=== PATIENT | female | born 1950 | race Caucasian/White ===

== ENCOUNTER 2018-03-07 10:52 | Inpatient (IN) ==
[2018-03-07] MEDS ORDERED: Metoprolol Tartrate 25 MG Tablet PO ONE (12:00)
[2018-03-07] MEDS ORDERED: Chlorhexidine Gluconate 2% 1 Pack (2 Cloths) TOPICAL ONE (12:00)
[2018-03-07] MEDS ORDERED: Heparin - SQ 10,000 UNITS/ML Vial SQ SCH (12:00)
[2018-03-07] MEDS ORDERED: Sodium Chlor 0.9% Inj 500 ML IV.CONT ONE (12:00)
[2018-03-07] MEDS ORDERED: Ketamine Inj 50 MG/5 ML Syringe IV.PUSH ONE (12:15)
[2018-03-07] MEDS ORDERED: Albumin Human 5% Inj 250 ML IV.SIG ONE (12:16)
[2018-03-07] MEDS ORDERED: Famotidine PF Inj 20 MG/2 ML Vial ONE (12:17)
[2018-03-07] MEDS ORDERED: fentaNYL Citrate Inj 250 MCG/5 ML Ampul ONE (12:17)
[2018-03-07] MEDS ORDERED: fentaNYL Citrate Inj 100 MCG/2 ML Ampul ONE ×3 (12:17→18:49)
[2018-03-07] MEDS ORDERED: Labetalol HCl Inj 100 MG/20 ML Vial IV.CONT ONE (13:16)
[2018-03-07] MEDS ORDERED: Normosol-R pH 7.4 Inj 3,000 ML IV.CONT ONE (13:16)
[2018-03-07] MEDS ORDERED: Phenylephrine/NS 1000 MCG/10ML Syringe IV.PUSH ONE (13:16)
[2018-03-07] MEDS ORDERED: Lidocaine PF 1% Inj 5 ML Syringe OTHER ONE (13:16)
--- NOTE | 2018-03-07 14:02 | P.OP ---
- Preoperative Diagnosis (1) Abdominal wall mass of epigastric region (2) Pelvic mass - Postoperative Diagnosis (1) Abdominal wall mass of epigastric region (2) Pelvic mass Date of procedure: 03/07/18 Anesthesia: GETA Surgeon: Edward Mckeon DO Estimated blood loss (mL): 0 Pathology: none sent Operation and Findings: 67-year-old female with large abdominal mass. Request made for cystoscopy with bilateral ureteral catheter insertion. Patient was brought to the operating room placed in the dorsal lithotomy position, prepped and draped in sterile fashion, received preprocedure antibiotic general endotracheal tube anesthesia was administered. 22 Korean cystoscope was inserted the bladder and on saleh cystoscopy the large mass was lifting the bladder anteriorly causing displacement of both ureteral orifices. The left ureteral orifice was identified and a 5 Korean Guadalupe catheter was inserted in the left ureteral orifice without difficulty. This was again repeated on the right side without difficulty. The Guadalupe was inserted and then the catheters were attached to the Guadalupe. She tolerated the procedure well.
[2018-03-07] MEDS ORDERED: Morphine Inj 4 MG/ML Vial ONE (14:18)
[2018-03-07] MEDS ORDERED: Sugammadex Inj 200 MG/2 ML Vial IV.PUSH ONE (15:04)
[2018-03-07 15:57] LABS: ABG Base Excess 3.5 mmol/L (-2-2); ABG PCO2 33 mmHg (38-42); ABG PO2 261 mmHG (61-120)
[2018-03-07 16:23] LABS: Baso % (Auto) 0.3 % (0.0-2.0); Eos % (Auto) 0.2 % (0.0-4.0); Hematocrit 34.7 % (35.0-46.0); Hemoglobin 11.5 gm/dL (11.6-15.3); Lymph # (Auto) 0.5 th/mm3 (1.0-4.8); Lymph % (Auto) 6.3 % (9.0-44.0); Mean Corpuscular HGB Conc 33.1 % (32.0-36.0); Mean Corpuscular Hemoglobin 27.7 pg (27.0-34.0); Mean Corpuscular Volume 83.8 fL (80.0-100.0); Mean Platelet Volume 6.1 fL (7.0-11.0); Mono # (Auto) 0.2 th/mm3 (0.0-0.9); Neut % (Auto) 90.2 % (16.0-70.0); Platelet Count 298 th/mm3 (150-450); Red Blood Count 4.14 mil/mm3 (4.00-5.30); Red Cell Distribution Width 19.1 % (11.6-17.2); White Blood Count 7.8 th/mm3 (4.0-11.0)
[2018-03-07] MEDS ORDERED: *morphine SULFATE 4 MG/ML PERIprocedure ONLY ONE ×2 (20:06→20:33)
[2018-03-07] MEDS ORDERED: *morphine SULFATE 10 MG/ML PERIprocedure ONLY ONE (20:23)
[2018-03-07] MEDS ORDERED: *HYDROmorphone PF Inj 1 MG/ML Ampul PERIprocedural Use ONLY ONE ×2 (20:46→21:56)
[2018-03-07] MEDS ORDERED: Naloxone Inj 0.4 MG/ML Vial IV.PUSH PRN (21:31)
[2018-03-07] MEDS: Dextrose 5%/NaCl 0.9% Inj 1,000 ML IV.SIG SCH (21:35)
[2018-03-07] MEDS ORDERED: Sodium Chloride 0.9% 2 ML Flush PRN IV.FLUSH (21:52)
[2018-03-07 22:10] LABS: Baso % (Auto) 0.3 % (0.0-2.0); Eos % (Auto) 0.1 % (0.0-4.0); Hemoglobin 12.2 gm/dL (11.6-15.3); Lymph # (Auto) 0.8 th/mm3 (1.0-4.8); Lymph % (Auto) 5.9 % (9.0-44.0); Mean Corpuscular Hemoglobin 27.3 pg (27.0-34.0); Mean Corpuscular Volume 82.9 fL (80.0-100.0); Mono # (Auto) 0.9 th/mm3 (0.0-0.9); Mono % (Auto) 6.1 % (0.0-8.0); Neut # (Auto) 12.6 th/mm3 (1.8-7.7); Neut % (Auto) 87.6 % (16.0-70.0); Platelet Count 576 th/mm3 (150-450); Red Blood Count 4.46 mil/mm3 (4.00-5.30); Red Cell Distribution Width 18.9 % (11.6-17.2); White Blood Count 14.4 th/mm3 (4.0-11.0)
[2018-03-07] MEDS: Famotidine PF Inj 20 MG/2 ML Vial IV.PUSH SCH (22:14)
[2018-03-07] MEDS: Heparin - SQ 10,000 UNITS/ML Vial SQ SCH (22:14)
[2018-03-07] MEDS: Morphine Inj 30 MG/30 ML PCA.VIAL PCA PRN (22:15)
[2018-03-07 22:23] LABS: Potassium 3.3 meq/L (3.5-5.1)
[2018-03-08] MEDS ORDERED: Potassium Chlor 20 mEq Premix 20 MEQ/100 ML PIGGYBACK IV.SIG ONE (01:00)
[2018-03-08] MEDS: Dextrose 5%/NaCl 0.9% Inj 1,000 ML IV.SIG SCH ×4 (03:30→15:05)
[2018-03-08 05:16] LABS: Baso % (Auto) 0.1 % (0.0-2.0); Hematocrit 33.8 % (35.0-46.0); Lymph # (Auto) 0.9 th/mm3 (1.0-4.8); Mean Corpuscular HGB Conc 32.5 % (32.0-36.0); Mean Corpuscular Hemoglobin 27.2 pg (27.0-34.0); Mean Corpuscular Volume 83.7 fL (80.0-100.0); Mean Platelet Volume 5.9 fL (7.0-11.0); Mono # (Auto) 0.8 th/mm3 (0.0-0.9); Mono % (Auto) 4.6 % (0.0-8.0); Neut # (Auto) 15.4 th/mm3 (1.8-7.7); Neut % (Auto) 90.3 % (16.0-70.0); Platelet Count 348 th/mm3 (150-450); Red Blood Count 4.04 mil/mm3 (4.00-5.30); Red Cell Distribution Width 18.5 % (11.6-17.2); White Blood Count 17.1 th/mm3 (4.0-11.0)
[2018-03-08 06:08] LABS: Calcium 7.1 mg/dL (8.5-10.1); Carbon Dioxide 28.4 meq/L (21.0-32.0); Potassium 3.9 meq/L (3.5-5.1)
[2018-03-08 06:22] LABS: Total Protein 4.6 g/dL (6.4-8.2)
[2018-03-08] MEDS: Morphine Inj 30 MG/30 ML PCA.VIAL PCA PRN ×2 (10:14→23:32)
[2018-03-08] MEDS: Heparin - SQ 10,000 UNITS/ML Vial SQ SCH ×2 (10:54→21:20)
[2018-03-08] MEDS: Famotidine PF Inj 20 MG/2 ML Vial IV.PUSH SCH (10:54)
[2018-03-08] MEDS: Sodium Chloride 0.9% 2 ML Flush BID IV.FLUSH SCH ×2 (10:55→21:22)
--- NOTE | 2018-03-08 11:24 | P.PNWCN ---
Wound Care Nurse Consult Description: Consult for New Ostomy Teaching of RLQ per Dr Dalton Communicated with: Patient RN Recommendation: Empty pouch when 1/3-1/2 full of effluent Change ostomy wafer and pouch every 3-5 days and PRN for leaks Assess stoma for output and red/pink color. Notify physician of any changes in color or lack of output in 24 hours. Additional information: Patient seen on for ostomy assessment. No teaching was done today. Patient appeared to be overwhelmed during assessment stating that she just woke up and could race and sports book writer please turn down the TV. Bowel Diversion Stoma - Bowel Stoma Left Lower Abdomen Stoma Edema: Yes Stoma Appearance: Protruding (red, moist, functioning with brown liquid noted in pouch that was open upon assessment) Loop Supporting Cachorro: No Collection Device: Two-piece, Moldable Wafer Drainage Description: Liquid, Brown Mis-Stomal Surrounding Tissue Sensation Description: No Symptoms - Additional Information Additional Information: Will assess patient for teaching later today.
--- NOTE | 2018-03-08 14:24 | P.PN ---
Subjective Interval history: c/o pain c/w surgery, using tester electronic scale regularly, feels a bit anxious no n/v, no cp or sob Physical Exam Vital signs: Vital Signs 03/07/18 19:53 03/07/18 20:00 03/07/18 20:08 Temperature 97.8 F Pulse Rate 83 82 Respiratory Rate 20 18 20 Blood Pressure 151/68 H 157/72 H Pulse Oximetry 96 100 03/07/18 20:15 03/07/18 20:25 03/07/18 20:30 Temperature Pulse Rate 88 89 Respiratory Rate 25 H 20 25 H Blood Pressure 155/72 H 159/73 H Pulse Oximetry 100 99 03/07/18 20:45 03/07/18 21:00 03/07/18 21:15 Temperature Pulse Rate 89 80 87 Respiratory Rate 24 23 21 Blood Pressure 148/67 H 172/72 H 158/72 H Pulse Oximetry 96 100 100 03/07/18 21:30 03/07/18 21:45 03/07/18 22:00 Temperature Pulse Rate 81 82 80 Respiratory Rate 20 19 18 Blood Pressure 156/64 H 157/70 H 161/67 H Pulse Oximetry 100 100 100 03/07/18 22:30 03/07/18 22:45 03/07/18 23:00 Temperature Pulse Rate 89 86 Respiratory Rate 19 16 20 Blood Pressure 169/72 H 155/65 H Pulse Oximetry 89 L 100 03/07/18 23:30 03/08/18 00:00 03/08/18 00:30 Temperature 97.8 F Pulse Rate 89 87 90 Respiratory Rate 19 21 18 Blood Pressure 142/64 H 146/61 H 135/61 Pulse Oximetry 100 100 99 03/08/18 01:43 03/08/18 04:00 Temperature 97.1 F L 97.2 F L Pulse Rate 91 H 92 H Respiratory Rate 19 21 Blood Pressure 109/61 Pulse Oximetry 100 95 Intake & Output 03/07/18 03/08/18 03/08/18 18:59 06:59 18:59 Intake Total 200 / 200 4500 / 4500 1100 / 1100 Output Total 3285 / 3285 Balance 200 / 200 1215 / 1215 1100 / 1100 Weight 67.6 kg Intake: IV 200 / 200 1300 / 1300 1100 / 1100 D5W/Normal Saline Inj 1,000 ML 1000 / 1000 1000 / 1000 @ 125 mls/hr IV.SIG .Q8H [facility] Rx #:[id number] KCl 20 mEq Premix Inj 20 meq In 100 / 100 100 ml @ 50 mls/hr IV.SIG ONCE ONE Rx#:[id number] Ancef Inj 1,000 MG In NS Inj 100 / 100 100 / 100 100 / 100 100 ML @ 200 mls/hr IV.SIG Q8H [facility] Rx#:[id number] Flagyl 500 MG Inj 100 ML @ 100 100 / 100 100 / 100 mls/hr IV.SIG Q8H [facility] Rx#: [id number] Oral 0 / 0 Anesthesia Amount 3200 / 3200 Output: Stool 0 / 0 Estimated Blood Loss 700 / 700 Urine Amount (Catheter) 2125 / 2125 3-way Urethral 1875 / 1875 Indwelling Urethral Catheter 250 / 250 Stool Amount (Stoma) 0 / 0 Right Lower Abdomen 0 / 0 Gastric Drainage 200 / 200 Right Nare 200 / 200 Wound Drainage 260 / 260 # 1 Abdomen ALBERT Drain 230 / 230 # 2 Abdomen ALBERT Drain 30 / 30 Other: Weight On Admission 67.6 kg - Constitutional mild distress (due to discomfort, no cardiac or pulmonary compromise) - Routine HEENT Exam Eye: Present: EOMI, PERRL - Routine Abdominal Exam Present: wound (clean, focal s/s d/c), drain (sites clean) - Routine Neurological Exam Present: alert - Urinary Catheter Management 3-way Urethral Cath placed during this visit: yes Reason for continuing: Hourly intake/output Insertion date: 03/07/18 Insertion time: 13:57 Indwelling Urethral Catheter Cath placed during this visit: yes Reason for continuing: Other continuation reason Insertion date: 03/07/18 Results - Labs CBC & Chem 7: 03/08/18 04:50 03/08/18 04:50 Laboratory Results - last 24 hr 03/07/18 03/07/18 03/07/18 11:13 15:48 16:04 WBC 7.8 RBC 4.14 Hgb 11.5 L Hct 34.7 L MCV 83.8 MCH 27.7 MCHC 33.1 RDW 19.1 H Plt Count 298 MPV 6.1 L Neut % (Auto) 90.2 H Lymph % (Auto) 6.3 L [place] % (Auto) 3.0 Eos % (Auto) 0.2 Baso % (Auto) 0.3 Neut # (Auto) 7.0 Lymph # (Auto) 0.5 L [place] # (Auto) 0.2 Eos # (Auto) 0.0 Baso # (Auto) 0.0 WBC Differential . Differential Comment Auto diff final Puncture Site Drawn in or Patient Temperature 98.6 O2 Saturation 97 ABG pH 7.52 H* ABG pCO2 33 L ABG pO2 261 H ABG HCO3 26 ABG O2 Content 17.9 ABG Base Excess 3.5 H ABG Methemoglobin 1.5 Hemoglobin 12.7 Carboxyhemoglobin 1.2 Critical Value Yes Sodium Potassium Chloride Carbon Dioxide Anion Gap BUN Creatinine Estimated GFR Random Glucose Calcium Prot Corrected Calcium Total Protein Nasal Screen MRSA (PCR) MTS Gel Crossmatch See Detail Bld Prod Order Comment 03/07/18 03/07/18 03/08/18 21:30 21:30 01:00 WBC 14.4 H D RBC 4.46 Hgb 12.2 Hct 37.0 MCV 82.9 MCH 27.3 MCHC 33.0 RDW 18.9 H Plt Count 576 H D MPV 6.0 L Neut % (Auto) 87.6 H Lymph % (Auto) 5.9 L [place] % (Auto) 6.1 Eos % (Auto) 0.1 Baso % (Auto) 0.3 Neut # (Auto) 12.6 H Lymph # (Auto) 0.8 L [place] # (Auto) 0.9 Eos # (Auto) 0.0 Baso # (Auto) 0.0 WBC Differential . Differential Comment Auto diff final Puncture Site Patient Temperature O2 Saturation ABG pH ABG pCO2 ABG pO2 ABG HCO3 ABG O2 Content ABG Base Excess ABG Methemoglobin Hemoglobin Carboxyhemoglobin Critical Value Sodium 141 Potassium 3.3 L Chloride 103 Carbon Dioxide 26.0 Anion Gap 12 BUN 28 H Creatinine 1.72 H Estimated GFR 29 L Random Glucose 161 H Calcium 8.0 L Prot Corrected Calcium Total Protein Nasal Screen MRSA (PCR) Not detected MTS Gel Crossmatch Bld Prod Order Comment 03/08/18 03/08/18 04:50 04:50 WBC 17.1 H RBC 4.04 Hgb 11.0 L Hct 33.8 L MCV 83.7 MCH 27.2 MCHC 32.5 RDW 18.5 H Plt Count 348 D MPV 5.9 L Neut % (Auto) 90.3 H Lymph % (Auto) 5.0 L [place] % (Auto) 4.6 Eos % (Auto) 0.0 Baso % (Auto) 0.1 Neut # (Auto) 15.4 H Lymph # (Auto) 0.9 L [place] # (Auto) 0.8 Eos # (Auto) 0.0 Baso # (Auto) 0.0 WBC Differential . Differential Comment Auto diff final Puncture Site Patient Temperature O2 Saturation ABG pH ABG pCO2 ABG pO2 ABG HCO3 ABG O2 Content ABG Base Excess ABG Methemoglobin Hemoglobin Carboxyhemoglobin Critical Value Sodium 144 Potassium 3.9 Chloride 107 Carbon Dioxide 28.4 Anion Gap 9 BUN 29 H Creatinine 1.95 H Estimated GFR 25 L Random Glucose 189 H Calcium 7.1 L* D Prot Corrected Calcium 8.5 Total Protein 4.6 L Nasal Screen MRSA (PCR) MTS Gel Crossmatch Bld Prod Order Comment Assessment and Plan - Plan POD#1 Stable in early post op period Findings and steps taken discussed in brief, preliminary q&a family present, she/they understand cpm as outlined, oob with assist, spirometry, continue feliciano ostomy teaching has been initiated, anticipate need for short term rehab after d /c
--- NOTE | 2018-03-08 23:43 | P.PN ---
Subjective Interval history: POD#1 s/p ex lap, excision adominal wall tumor, excision pelvic mass, sigmod resection, transverse colon/sb resection. uncomfortable, inadequate pain relief minimal nausea Physical Exam Vital signs: Vital Signs 03/08/18 00:00 03/08/18 00:30 03/08/18 01:08 Temperature 97.8 F Pulse Rate 87 90 Respiratory Rate 21 18 Blood Pressure 146/61 H 135/61 127/60 Pulse Oximetry 100 99 03/08/18 01:43 03/08/18 02:00 03/08/18 03:00 Temperature 97.1 F L Pulse Rate 91 H 90 88 Respiratory Rate 19 14 16 Blood Pressure Pulse Oximetry 100 98 97 03/08/18 04:00 03/08/18 05:00 03/08/18 06:00 Temperature 97.2 F L Pulse Rate 90 84 87 Respiratory Rate 15 14 15 Blood Pressure 109/61 Pulse Oximetry 99 97 87 L 03/08/18 07:00 03/08/18 07:38 03/08/18 08:00 Temperature Pulse Rate 91 H 97 H 89 Respiratory Rate 17 24 15 Blood Pressure 146/65 H 122/60 Pulse Oximetry 92 L 80 L 89 L 03/08/18 09:00 03/08/18 10:00 03/08/18 11:00 Temperature Pulse Rate 89 90 96 H Respiratory Rate 18 20 22 Blood Pressure 127/61 132/62 136/60 Pulse Oximetry 100 100 100 03/08/18 12:00 03/08/18 13:00 03/08/18 14:00 Temperature Pulse Rate 92 H 97 H 92 H Respiratory Rate 20 27 H 16 Blood Pressure 130/61 126/66 134/61 Pulse Oximetry 97 100 100 03/08/18 14:02 03/08/18 15:00 03/08/18 16:00 Temperature Pulse Rate 92 H 91 H Respiratory Rate 13 12 Blood Pressure 129/59 L 130/64 133/61 Pulse Oximetry 100 100 Intake & Output 03/08/18 03/08/18 03/09/18 06:59 18:59 06:59 Intake Total 4500 / 4500 1300 / 1300 Output Total 3285 / 3285 940 / 940 Balance 1215 / 1215 360 / 360 Intake: IV 1300 / 1300 1300 / 1300 D5W/Normal Saline Inj 1,000 ML 1000 / 1000 1000 / 1000 @ 125 mls/hr IV.SIG .Q8H [facility] Rx #:[id number] KCl 20 mEq Premix Inj 20 meq In 100 / 100 100 ml @ 50 mls/hr IV.SIG ONCE ONE Rx#:[id number] Ancef Inj 1,000 MG In NS Inj 100 / 100 200 / 200 100 ML @ 200 mls/hr IV.SIG Q8H [facility] Rx#:[id number] Flagyl 500 MG Inj 100 ML @ 100 100 / 100 100 / 100 mls/hr IV.SIG Q8H [facility] Rx#: [id number] Oral 0 / 0 Anesthesia Amount 3200 / 3200 Output: Stool 0 / 0 Estimated Blood Loss 700 / 700 Urine Amount (Catheter) 2125 / 2125 450 / 450 3-way Urethral 1875 / 1875 Indwelling Urethral Catheter 250 / 250 450 / 450 Stool Amount (Stoma) 0 / 0 100 / 100 Right Lower Abdomen 0 / 0 100 / 100 Gastric Drainage 200 / 200 Right Nare 200 / 200 Wound Drainage 260 / 260 390 / 390 # 1 Abdomen ALBERT Drain 230 / 230 330 / 330 # 2 Abdomen ALBERT Drain 30 / 30 60 / 60 - Constitutional mild distress - Routine Respiratory Exam Comments: breathing symmetric and nonlabored - Routine Abdominal Exam Comments: Abdomen soft, nondistended, tender Stoma pink ALBERT serosanguinous wound clean - Urinary Catheter Management 3-way Urethral Cath placed during this visit: yes Reason for continuing: Hourly intake/output Insertion date: 03/07/18 Insertion time: 13:57 Indwelling Urethral Catheter Cath placed during this visit: yes Reason for continuing: Other continuation reason Insertion date: 03/07/18 Results - Labs CBC & Chem 7: 03/08/18 04:50 03/08/18 04:50 Laboratory Results - last 24 hr 03/07/18 03/07/18 03/08/18 11:13 15:48 01:00 WBC RBC Hgb Hct MCV MCH MCHC RDW Plt Count MPV Neut % (Auto) Lymph % (Auto) [place] % (Auto) Eos % (Auto) Baso % (Auto) Neut # (Auto) Lymph # (Auto) [place] # (Auto) Eos # (Auto) Baso # (Auto) WBC Differential Differential Comment Puncture Site Drawn in or Sodium Potassium Chloride Carbon Dioxide Anion Gap BUN Creatinine Estimated GFR Random Glucose Calcium Prot Corrected Calcium Total Protein Nasal Screen MRSA (PCR) Not detected MTS Gel Crossmatch See Detail Bld Prod Order Comment 03/08/18 03/08/18 04:50 04:50 WBC 17.1 H RBC 4.04 Hgb 11.0 L Hct 33.8 L MCV 83.7 MCH 27.2 MCHC 32.5 RDW 18.5 H Plt Count 348 D MPV 5.9 L Neut % (Auto) 90.3 H Lymph % (Auto) 5.0 L [place] % (Auto) 4.6 Eos % (Auto) 0.0 Baso % (Auto) 0.1 Neut # (Auto) 15.4 H Lymph # (Auto) 0.9 L [place] # (Auto) 0.8 Eos # (Auto) 0.0 Baso # (Auto) 0.0 WBC Differential . Differential Comment Auto diff final Puncture Site Sodium 144 Potassium 3.9 Chloride 107 Carbon Dioxide 28.4 Anion Gap 9 BUN 29 H Creatinine 1.95 H Estimated GFR 25 L Random Glucose 189 H Calcium 7.1 L* D Prot Corrected Calcium 8.5 Total Protein 4.6 L Nasal Screen MRSA (PCR) MTS Gel Crossmatch Bld Prod Order Comment Assessment and Plan - Assessment (1) Pelvic mass Code(s): R19.00 - Intra-abdominal and pelvic swelling, mass and lump, unspecified site Status: Acute (2) Abdominal wall mass of epigastric region Code(s): R19.06 - Epigastric swelling, mass or lump Status: Acute Plan: Add Fentanyl patch Decrease IVF [employer]
[2018-03-09] MEDS: Dextrose 5%/NaCl 0.9% Inj 1,000 ML IV.SIG SCH ×3 (00:32→14:56)
[2018-03-09 06:08] LABS: Hematocrit 27.3 % (35.0-46.0); Mean Corpuscular HGB Conc 33.1 % (32.0-36.0); Mean Corpuscular Hemoglobin 27.7 pg (27.0-34.0); Mean Corpuscular Volume 83.5 fL (80.0-100.0); Mean Platelet Volume 6.1 fL (7.0-11.0); Platelet Count 236 th/mm3 (150-450); Red Blood Count 3.27 mil/mm3 (4.00-5.30); Red Cell Distribution Width 18.9 % (11.6-17.2); White Blood Count 16.3 th/mm3 (4.0-11.0)
[2018-03-09 06:35] LABS: Calcium 6.9 mg/dL (8.5-10.1); Carbon Dioxide 27.3 meq/L (21.0-32.0); Potassium 3.6 meq/L (3.5-5.1)
--- NOTE | 2018-03-09 07:23 | P.PN ---
Subjective Interval history: POD #2 s/p X Lap excision abdominal wall tumor, excision pelvic mass, sigmoid resection, transverse colon/small bowel resection. Patient resting in bed RN reports she did well overnight no issues patient reports pain controlled with FLAT [employer]ING [employer] NG tube Physical Exam Vital signs: Vital Signs 03/08/18 07:38 03/08/18 08:00 03/08/18 09:00 Temperature Pulse Rate 97 H 89 89 Respiratory Rate 24 15 18 Blood Pressure 146/65 H 122/60 127/61 Pulse Oximetry 80 L 89 L 100 03/08/18 10:00 03/08/18 11:00 03/08/18 12:00 Temperature Pulse Rate 90 96 H 92 H Respiratory Rate 20 22 20 Blood Pressure 132/62 136/60 130/61 Pulse Oximetry 100 100 97 03/08/18 13:00 03/08/18 14:00 03/08/18 14:02 Temperature Pulse Rate 97 H 92 H Respiratory Rate 27 H 16 Blood Pressure 126/66 134/61 129/59 L Pulse Oximetry 100 100 03/08/18 15:00 03/08/18 16:00 03/08/18 20:00 Temperature 98.1 F Pulse Rate 92 H 91 H 100 H Respiratory Rate 13 12 18 Blood Pressure 130/64 133/61 129/60 Pulse Oximetry 100 100 100 03/09/18 00:00 03/09/18 04:00 Temperature 98.1 F 98.2 F Pulse Rate 98 H 94 H Respiratory Rate 14 10 L Blood Pressure 129/60 136/63 Pulse Oximetry 100 93 L Intake & Output 03/08/18 03/09/18 03/09/18 18:59 06:59 18:59 Intake Total 1300 / 1300 1000 / 1000 Output Total 940 / 940 Balance 360 / 360 1000 / 1000 Intake: IV 1300 / 1300 1000 / 1000 D5W/Normal Saline Inj 1,000 ML 1000 / 1000 1000 / 1000 @ 125 mls/hr IV.SIG .Q8H [facility] Rx #:[id number] Ancef Inj 1,000 MG In NS Inj 200 / 200 100 ML @ 200 mls/hr IV.SIG Q8H [facility] Rx#:[id number] Flagyl 500 MG Inj 100 ML @ 100 100 / 100 mls/hr IV.SIG Q8H [facility] Rx#: [id number] Output: Urine Amount (Catheter) 450 / 450 Indwelling Urethral Catheter 450 / 450 Stool Amount (Stoma) 100 / 100 Right Lower Abdomen 100 / 100 Wound Drainage 390 / 390 # 1 Abdomen ALBERT Drain 330 / 330 # 2 Abdomen ALBERT Drain 60 / 60 - Constitutional no acute distress - Routine HEENT Exam Head: Present: normocephalic, atraumatic Eye: Present: EOMI, PERRL - Routine Neck Exam Present: supple - Routine Respiratory Exam Present: CTA bilaterally - Routine Cardiovascular Exam Present: RRR - Routine Abdominal Exam Present: soft, ostomy Comments: ALBERT drain with SS drainage - Routine Extremities Exam Comments: teds and scds - Routine Skin Exam Present: intact - Routine Neurological Exam Present: alert, oriented X3 - Detailed Neurological Exam: Coma Scale Eye Opening: Spontaneous - Routine Psychiatric Exam Present: normal affect - Urinary Catheter Management 3-way Urethral Cath placed during this visit: yes Reason for continuing: Hourly intake/output Insertion date: 03/07/18 Insertion time: 13:57 Indwelling Urethral Catheter Cath placed during this visit: yes Reason for continuing: Other continuation reason Insertion date: 03/07/18 Results - Labs CBC & Chem 7: 03/09/18 05:50 03/09/18 05:50 Laboratory Results - last 24 hr 03/07/18 03/07/18 03/08/18 11:13 15:48 01:00 WBC RBC Hgb Hct MCV MCH MCHC RDW Plt Count MPV Puncture Site Drawn in or Sodium Potassium Chloride Carbon Dioxide Anion Gap BUN Creatinine Estimated GFR Random Glucose Calcium Nasal Screen MRSA (PCR) Not detected MTS Gel Crossmatch See Detail Bld Prod Order Comment 03/09/18 03/09/18 05:50 05:50 WBC 16.3 H RBC 3.27 L Hgb 9.0 L D Hct 27.3 L MCV 83.5 MCH 27.7 MCHC 33.1 RDW 18.9 H Plt Count 236 D MPV 6.1 L Puncture Site Sodium 147 H Potassium 3.6 Chloride 113 H Carbon Dioxide 27.3 Anion Gap 7 BUN 27 H Creatinine 1.38 H Estimated GFR 38 L Random Glucose 128 H Calcium 6.9 L* Nasal Screen MRSA (PCR) MTS Gel Crossmatch Bld Prod Order Comment Assessment and Plan - Assessment (1) Pelvic mass Code(s): R19.00 - Intra-abdominal and pelvic swelling, mass and lump, unspecified site Status: Acute Current visit: No - Plan POD #2 s/p ex lap, excision abdominal wall tumor, excision pelvic mass, sigmoid resection, transverse colon and small bowel resection. ileostomy draining teaching per wound care ALBERT drains SS drainage abdominal dressing is c/d/i NG tube IV hydration supportive care OOB to chair pain controlled with [employer]ING [employer]ER
[2018-03-09 07:38] LABS: Total Protein 4.5 g/dL (6.4-8.2)
[2018-03-09] MEDS: Famotidine PF Inj 20 MG/2 ML Vial IV.PUSH SCH ×2 (10:07→21:00)
[2018-03-09] MEDS: Sodium Chloride 0.9% 2 ML Flush BID IV.FLUSH SCH (10:07)
[2018-03-09] MEDS: Heparin - SQ 10,000 UNITS/ML Vial SQ SCH ×2 (10:07→21:00)
--- NOTE | 2018-03-09 10:31 | P.PN ---
Subjective Interval history: POD#2 s/p ex lap, excision abdominal wall tumor, pelvic tumor, sigmoid colon, transverse colon/sb fairly comfortable Physical Exam Vital signs: Vital Signs 03/08/18 11:00 03/08/18 12:00 03/08/18 13:00 Temperature Pulse Rate 96 H 92 H 97 H Respiratory Rate 22 20 27 H Blood Pressure 136/60 130/61 126/66 Pulse Oximetry 100 97 100 03/08/18 14:00 03/08/18 14:02 03/08/18 15:00 Temperature Pulse Rate 92 H 92 H Respiratory Rate 16 13 Blood Pressure 134/61 129/59 L 130/64 Pulse Oximetry 100 100 03/08/18 16:00 03/08/18 20:00 03/09/18 00:00 Temperature 98.1 F 98.1 F Pulse Rate 91 H 100 H 98 H Respiratory Rate 12 18 14 Blood Pressure 133/61 129/60 129/60 Pulse Oximetry 100 100 100 03/09/18 04:00 Temperature 98.2 F Pulse Rate 94 H Respiratory Rate 10 L Blood Pressure 136/63 Pulse Oximetry 93 L Intake & Output 03/08/18 03/09/18 03/09/18 18:59 06:59 18:59 Intake Total 1300 / 1300 1657 / 1657 1000 / 1000 Output Total 940 / 940 905 / 905 Balance 360 / 360 752 / 752 1000 / 1000 Weight 68.1 kg Intake: IV 1300 / 1300 1657 / 1657 1000 / 1000 D5W/Normal Saline Inj 1,000 ML 1000 / 1000 1657 / 1657 1000 / 1000 @ 125 mls/hr IV.SIG .Q8H [facility] Rx #:[id number] Ancef Inj 1,000 MG In NS Inj 200 / 200 100 ML @ 200 mls/hr IV.SIG Q8H [facility] Rx#:[id number] Flagyl 500 MG Inj 100 ML @ 100 100 / 100 mls/hr IV.SIG Q8H [facility] Rx#: [id number] Oral 0 / 0 Output: Urine Amount (Catheter) 450 / 450 675 / 675 Indwelling Urethral Catheter 450 / 450 675 / 675 Stool Amount (Stoma) 100 / 100 100 / 100 Right Lower Abdomen 100 / 100 100 / 100 Wound Drainage 390 / 390 130 / 130 # 1 Abdomen ALBERT Drain 330 / 330 90 / 90 # 2 Abdomen ALBERT Drain 60 / 60 40 / 40 - Routine Abdominal Exam Comments: Abdomen soft, nondistended, tender Wound clean stoma pink ALBERT serosanguinous - Urinary Catheter Management 3-way Urethral Cath placed during this visit: yes Reason for continuing: Hourly intake/output Insertion date: 03/07/18 Insertion time: 13:57 Indwelling Urethral Catheter Cath placed during this visit: yes Reason for continuing: Other continuation reason Insertion date: 03/07/18 Results - Labs CBC & Chem 7: 03/09/18 05:50 03/09/18 05:50 Laboratory Results - last 24 hr 03/07/18 03/08/18 03/09/18 11:13 01:00 05:50 WBC 16.3 H RBC 3.27 L Hgb 9.0 L D Hct 27.3 L MCV 83.5 MCH 27.7 MCHC 33.1 RDW 18.9 H Plt Count 236 D MPV 6.1 L Sodium Potassium Chloride Carbon Dioxide Anion Gap BUN Creatinine Estimated GFR Random Glucose Calcium Prot Corrected Calcium Total Protein Nasal Screen MRSA (PCR) Not detected MTS Gel Crossmatch See Detail Bld Prod Order Comment 03/09/18 05:50 WBC RBC Hgb Hct MCV MCH MCHC RDW Plt Count MPV Sodium 147 H Potassium 3.6 Chloride 113 H Carbon Dioxide 27.3 Anion Gap 7 BUN 27 H Creatinine 1.38 H Estimated GFR 38 L Random Glucose 128 H Calcium 6.9 L* Prot Corrected Calcium 8.3 L Total Protein 4.5 L Nasal Screen MRSA (PCR) MTS Gel Crossmatch Bld Prod Order Comment Assessment and Plan - Assessment (1) Pelvic mass Code(s): R19.00 - Intra-abdominal and pelvic swelling, mass and lump, unspecified site Status: Acute (2) Abdominal wall mass of epigastric region Code(s): R19.06 - Epigastric swelling, mass or lump Status: Acute Plan: d/c stent Decrease IVF, start lasix clamp NGT x 4 hours, d/c if less than 100 cc [employer]
--- NOTE | 2018-03-09 10:36 | P.DIET ---
Nutritional Evaluation Type of nutrition evaluation: initial Nutrition screening: Weight Loss > 10 lbs Subjective Subjective Comments: Weight loss and poor appetite reported. Objective - Diagnosis Pelvic Mass - Objective Body Mass Index: 25.0 % IBW: 115 (IBW = 130#) Body Weight Used for Calculations: Actual (68.1) Energy Needs - Lower Range (kCal/kg): 25 Energy Needs - Upper Range (kCal/kg): 30 Lower Limit kCal/kg (kCals): 1,703 Upper Limit kCal/kg (kCals): 2,043 Lower Limit Protein Factor (Grams per Kg): 1.0 Upper Limit Protein Factor (Grams per Kg): 1.5 Lower Protein Needs (Protein): 68 Upper Protein Needs (Protein): 102 Fluid Factor (ml/kg): 30 Estimated Fluid Needs (ml): 2,043 Dietitian Reviewed in Medical Record: Curent medications, Intake & Output, Labs , Medical history Diet Order: floor finisher diet order entered Assessment Assessment: Pt is s/p exp lap, hysterectomy, BSO, pelvic mass removal, lysis of adhesions, resection of abdominal wall, sigmoid resection, small bowel resection, transverse colon resection, ileostomy, and insertion of B ureteral catheters POD # 2 and remains npo with an ng-t. RD will monitor diet advance and assess for the need of supplements. Recommendations: Advance diet per surgery Dietitian to Monitor: Lab values, Intake & Output, Diet tolerance, Weight change , PO Intake, Diet advancement, Medical course
--- NOTE | 2018-03-09 13:54 | P.PNWCN ---
Wound Care Nurse Consult Description: Consult for New Ostomy Teaching of RLQ per Dr Dalton Communicated with: PREET Rome Recommendation: Empty pouch when 1/3-1/2 full of effluent. Change ostomy wafer and pouch every 3-5 days and PRN for leaks. Assess stoma for output and red/pink color. Notify physician of any changes in color or lack of output in 24 hours. Additional information: Patient seen on for consult on RLQ ileostomy. Patient was visiting with her son at bedside. Spoke with PREET Rome regarding teaching to be done today. Per RN, patient is still "out of it and confused at times". PREET Rome to [employer] technical proposal writer when son leaves for teaching and assessment of ileostomy. Bowel Diversion Stoma - Additional Information Additional Information: Will assess patient for teaching later today after son leaves.
--- NOTE | 2018-03-09 16:51 | P.PNWCN ---
Wound Care Nurse Consult Description: Consult for New Ostomy Teaching of RLQ per Dr Dalton Communicated with: Patients son at bedside PREET Rome Recommendation: Empty pouch when 1/3-1/2 full of effluent. Change ostomy wafer and pouch every 3-5 days and PRN for leaks. Assess stoma for output and red/pink color. Notify physician of any changes in color or lack of output in 24 hours. Additional information: Patient seen on . Spoke with son at bedside. Left educational materials in room for reinforcement of teaching. Plan to speak with patient on Tuesday. Patient was sleeping upon arrival to room 1321 and continued to sleep while speaking with her son. Spoke with PREET Rome regarding educational materials, repositioning patient, etc.
[2018-03-09] MEDS: Morphine Inj 30 MG/30 ML PCA.VIAL PCA PRN (18:25)
[2018-03-10] MEDS: Dextrose 5%/NaCl 0.9% Inj 1,000 ML IV.SIG SCH ×3 (01:03→21:40)
[2018-03-10] MEDS: Sodium Chloride 0.9% 2 ML Flush BID IV.FLUSH SCH ×3 (01:03→21:39)
[2018-03-10 05:35] LABS: Hematocrit 26.8 % (35.0-46.0); Hemoglobin 8.7 gm/dL (11.6-15.3); Mean Corpuscular HGB Conc 32.3 % (32.0-36.0); Mean Corpuscular Hemoglobin 27.3 pg (27.0-34.0); Mean Corpuscular Volume 84.5 fL (80.0-100.0); Mean Platelet Volume 6.2 fL (7.0-11.0); Platelet Count 201 th/mm3 (150-450); Red Blood Count 3.17 mil/mm3 (4.00-5.30); White Blood Count 14.7 th/mm3 (4.0-11.0)
[2018-03-10 06:03] LABS: Carbon Dioxide 30.8 meq/L (21.0-32.0); Potassium 3.2 meq/L (3.5-5.1)
[2018-03-10 06:18] LABS: Total Protein 4.6 g/dL (6.4-8.2)
--- NOTE | 2018-03-10 08:01 | P.PNONC ---
Subjective Interval history: POD #3 patient resting in bed no complaints NG tube discontinued patient denies any nausea or vomiting pain controlled Objective Vital Signs/Intake & Output: Vital Signs 03/09/18 08:00 03/09/18 12:00 03/09/18 16:00 Temperature 97.6 F 98.2 F 98.1 F Pulse Rate 97 H 99 H 100 H Respiratory Rate 14 12 12 Blood Pressure 160/77 H 116/57 L 145/67 H Pulse Oximetry 100 100 100 03/09/18 19:00 03/09/18 20:00 03/09/18 21:00 Temperature 98.4 F Pulse Rate 96 H 99 H 98 H Respiratory Rate 10 L 12 16 Blood Pressure 139/70 146/67 H 138/64 Pulse Oximetry 98 98 95 03/09/18 22:00 03/09/18 23:00 03/10/18 00:00 Temperature 98.6 F Pulse Rate 92 H 92 H 98 H Respiratory Rate 11 L 10 L 13 Blood Pressure 127/58 L 146/88 H 148/68 H Pulse Oximetry 96 99 100 03/10/18 01:00 03/10/18 02:00 03/10/18 03:00 Temperature Pulse Rate 87 84 84 Respiratory Rate 10 L 11 L 11 L Blood Pressure 137/64 144/65 H 137/62 Pulse Oximetry 100 100 94 L 03/10/18 04:00 Temperature 98.4 F Pulse Rate 88 Respiratory Rate 11 L Blood Pressure 151/68 H Pulse Oximetry 89 L Intake & Output 03/09/18 03/10/18 03/10/18 18:59 06:59 18:59 Intake Total 3000 / 3000 0 / 0 Output Total 875 / 875 1005 / 1005 Balance 2125 / 2125 -1005 / -1005 Weight 66.5 kg Intake: IV 3000 / 3000 0 / 0 D5W/Normal Saline Inj 1,000 ML 3000 / 3000 0 / 0 @ 100 mls/hr IV.SIG .Q10H [facility] Rx#:[id number] Oral 0 / 0 Output: Urine Amount (Catheter) 650 / 650 800 / 800 Indwelling Urethral Catheter 650 / 650 800 / 800 Stool Amount (Stoma) 50 / 50 115 / 115 Right Lower Abdomen 50 / 50 115 / 115 Wound Drainage 175 / 175 90 / 90 # 1 Abdomen JOI Drain 100 / 100 15 / 15 # 2 Abdomen JOI Drain 75 / 75 75 / 75 Other: Date of Last Bowel Movement 03/10/18 Result Diagrams: 03/10/18 05:09 03/10/18 05:09 Laboratory Results: Laboratory Results - last 24 hr 03/07/18 03/10/18 03/10/18 11:13 05:09 05:09 WBC 14.7 H RBC 3.17 L Hgb 8.7 L Hct 26.8 L MCV 84.5 MCH 27.3 MCHC 32.3 RDW 19.0 H Plt Count 201 MPV 6.2 L Sodium 141 Potassium 3.2 L Chloride 105 D Carbon Dioxide 30.8 Anion Gap 5 BUN 20 H Creatinine 1.11 H Estimated GFR 49 L Random Glucose 122 H Calcium 7.0 L* Prot Corrected Calcium 8.4 L Total Protein 4.6 L MTS Gel Crossmatch See Detail Medications: Active Medications Generic Name Dose Route Start Last Admin Trade Name Freq PRN Reason Stop Dose Admin Famotidine 10 mg 03/09/18 09:00 03/09/18 21:00 Pepcid Pf Inj IV.PUSH 10 mg Q12HR JANESSA Administration Fentanyl 1 patch 03/08/18 15:00 03/08/18 15:05 Duragesic 50 Mcg Patch.72hr T-DERMAL 1 patch Q3D JANESSA Administration Furosemide 20 mg 03/09/18 18:00 03/09/18 17:05 Lasix Inj IV.PUSH 20 mg BID@0900,1800 JANESSA Administration Heparin Sodium (Porcine) 5,000 units 03/07/18 21:00 03/09/18 21:00 Heparin Inj SQ 5,000 units Q12HR JANESSA Administration Morphine Sulfate 30 mg in 30 mls @ 0 mls/hr 03/07/18 21:31 03/09/18 19:05 Morphine Inj COMMODITIES REQUIREMENTS ANALYST 0 mls/hr UNSCH PRN Infusion per COMMODITIES REQUIREMENTS ANALYST parameters 0 MG/HR Dextrose/Sodium Chloride 1,000 mls @ 100 mls/hr 03/07/18 21:30 03/10/18 01:03 D5w/Normal Saline Inj IV.SIG 100 mls/hr .Q10H JANESSA Administration Sodium Chloride 2 ml 03/08/18 09:00 03/10/18 01:03 Ns Flush IV.FLUSH 2 ml BID JANESSA Administration Objective Remarks: GENERAL: thin, well-developed patient. SKIN: Warm and dry. HEAD: Normocephalic. EYES: No scleral icterus. No injection or drainage. CARDIOVASCULAR: Regular rate and rhythm RESPIRATORY: No accessory muscle use. GASTROINTESTINAL: Abdomen soft, dressing clean, ostomy draining, joi drain EXTREMITIES: teds and scds MUSCULOSKELETAL: Adequate muscle tone. NEUROLOGICAL: No obvious focal deficit. Awake, alert, and oriented x3. Assessment/Plan (1) Pelvic mass Code(s): R19.00 - Intra-abdominal and pelvic swelling, mass and lump, unspecified site Status: Acute Current visit: No - Plan POD #3 s/p X Lap excision abdominal wall tumor, pelvic tumor, sigmoid colon, transverse colon and small bowel pain controlled with environmental health aide diet advance per Dr. Dalton IVF physical therapy following computer clerk following may need short term rehab upon discharge supportive care
[2018-03-10] MEDS: Famotidine PF Inj 20 MG/2 ML Vial IV.PUSH SCH ×2 (08:40→21:38)
[2018-03-10] MEDS: Heparin - SQ 10,000 UNITS/ML Vial SQ SCH ×2 (08:41→21:39)
--- NOTE | 2018-03-10 10:56 | P.PN ---
Subjective Interval history: POD#3 s/p ex lap, excision pelvic mass, excision abdominal wall mass, sigmoid/ transverse/SB resection, bladder repair overall doing well, no nausea pain controlled Physical Exam Vital signs: Vital Signs 03/09/18 12:00 03/09/18 16:00 03/09/18 19:00 Temperature 98.2 F 98.1 F Pulse Rate 99 H 100 H 96 H Respiratory Rate 12 12 10 L Blood Pressure 116/57 L 145/67 H 139/70 Pulse Oximetry 100 100 98 03/09/18 20:00 03/09/18 21:00 03/09/18 22:00 Temperature 98.4 F Pulse Rate 99 H 98 H 92 H Respiratory Rate 12 16 11 L Blood Pressure 146/67 H 138/64 127/58 L Pulse Oximetry 98 95 96 03/09/18 23:00 03/10/18 00:00 03/10/18 01:00 Temperature 98.6 F Pulse Rate 92 H 98 H 87 Respiratory Rate 10 L 13 10 L Blood Pressure 146/88 H 148/68 H 137/64 Pulse Oximetry 99 100 100 03/10/18 02:00 03/10/18 03:00 03/10/18 04:00 Temperature 98.4 F Pulse Rate 84 84 88 Respiratory Rate 11 L 11 L 11 L Blood Pressure 144/65 H 137/62 151/68 H Pulse Oximetry 100 94 L 89 L 03/10/18 08:00 Temperature 98.5 F Pulse Rate 93 H Respiratory Rate 18 Blood Pressure 146/65 H Pulse Oximetry 95 Intake & Output 03/09/18 03/10/18 03/10/18 18:59 06:59 18:59 Intake Total 3000 / 3000 0 / 0 Output Total 875 / 875 1005 / 1005 Balance 2125 / 2125 -1005 / -1005 Weight 66.5 kg Intake: IV 3000 / 3000 0 / 0 D5W/Normal Saline Inj 1,000 ML 3000 / 3000 0 / 0 @ 100 mls/hr IV.SIG .Q10H [facility] Rx#:[id number] Oral 0 / 0 Output: Urine Amount (Catheter) 650 / 650 800 / 800 Indwelling Urethral Catheter 650 / 650 800 / 800 Stool Amount (Stoma) 50 / 50 115 / 115 Right Lower Abdomen 50 / 50 115 / 115 Wound Drainage 175 / 175 90 / 90 # 1 Abdomen ALBERT Drain 100 / 100 15 / 15 # 2 Abdomen ALBERT Drain 75 / 75 75 / 75 Other: Date of Last Bowel Movement 03/10/18 - Routine Abdominal Exam Comments: Abdomen soft, nondistended, tender Wound clean stoma pink ALBERT serous - Urinary Catheter Management 3-way Urethral Cath placed during this visit: yes Reason for continuing: Hourly intake/output Insertion date: 03/07/18 Insertion time: 13:57 Indwelling Urethral Catheter Cath placed during this visit: yes Reason for continuing: Other continuation reason Insertion date: 03/07/18 Results - Labs CBC & Chem 7: 03/10/18 05:09 03/10/18 05:09 Laboratory Results - last 24 hr 03/07/18 03/10/18 03/10/18 11:13 05:09 05:09 WBC 14.7 H RBC 3.17 L Hgb 8.7 L Hct 26.8 L MCV 84.5 MCH 27.3 MCHC 32.3 RDW 19.0 H Plt Count 201 MPV 6.2 L Sodium 141 Potassium 3.2 L Chloride 105 D Carbon Dioxide 30.8 Anion Gap 5 BUN 20 H Creatinine 1.11 H Estimated GFR 49 L Random Glucose 122 H Calcium 7.0 L* Prot Corrected Calcium 8.4 L Total Protein 4.6 L MTS Gel Crossmatch See Detail Assessment and Plan - Assessment (1) Pelvic mass Code(s): R19.00 - Intra-abdominal and pelvic swelling, mass and lump, unspecified site Status: Acute (2) Abdominal wall mass of epigastric region Code(s): R19.06 - Epigastric swelling, mass or lump Status: Acute Plan: continue feliciano trnasfer to floor Mobilize Xanax for anxiety Go slow with diet
[2018-03-10] MEDS ORDERED: ALPRAZolam 0.5 MG Tablet PO PRN (12:46)
--- NOTE | 2018-03-10 12:49 | P.PNWCN ---
Wound Care Nurse Consult Description: Consult for New Ostomy Teaching of RLQ per Dr Dalton Communicated with: Patient Patients son at bedside [place] [place] Recommendation: Empty pouch when 1/3-1/2 full of effluent. Change ostomy wafer and pouch every 3-5 days and PRN for leaks. Assess stoma for output and red/pink color. Notify physician of any changes in color or lack of output in 24 hours. Additional information: Patient seen on 3 for ostomy teaching. Bowel Diversion Stoma - Additional Information Additional Information: Spoke with patient and her son for ~1hour this morning. Patient requests that group underwriter come back ~2pm today for further teaching as well.
[2018-03-10] MEDS ORDERED: Sodium Phosphate Inj 30 MMOL in Sodium Chlor 0.9% Inj 250 ML IV.SIG PRN (12:58)
[2018-03-10] MEDS ORDERED: Potassium Chlor 40 mEq Premix 40 MEQ/100 ML PIGGYBACK IV.SIG PRN ×2 (12:58)
[2018-03-10] MEDS ORDERED: Potassium Phosphate 500 MG Soluble Tablet PO PRN ×2 (12:58)
[2018-03-10] MEDS ORDERED: Potassium Phosphate Inj 30 MMOL in Sodium Chlor 0.9% Inj 250 ML IV.SIG PRN (12:58)
[2018-03-10] MEDS ORDERED: Potassium Chloride 25 MEQ Effervescent Tablet PO PRN (12:58)
[2018-03-10] MEDS ORDERED: Potassium Chlor 20 mEq Premix 20 MEQ/100 ML PIGGYBACK IV.SIG PRN ×2 (12:58)
[2018-03-10] MEDS ORDERED: Magnesium Oxide 400 MG Tablet PO PRN (12:58)
[2018-03-10] MEDS ORDERED: Magnesium Sulfate Inj 2 GM in Sodium Chlor 0.9% Inj 96 ML IV.SIG PRN (12:58)
[2018-03-10] MEDS ORDERED: Magnesium Sulfate Inj 4 GM in Sodium Chlor 0.9% Inj 92 ML IV.SIG PRN (12:58)
[2018-03-10] MEDS: Morphine Inj 30 MG/30 ML PCA.VIAL PCA PRN (13:31)
--- NOTE | 2018-03-10 15:37 | MP ---
cc: Oanh Becerril MD,Natalia Walsh,Yasir Guzman MD DATE OF OPERATION: 03/07/2018 PREOPERATIVE DIAGNOSES: Large abdominopelvic mass, intraperitoneal carcinomatosis, abdominal pain, history of colon cancer. POSTOPERATIVE DIAGNOSES: Large abdominopelvic mass, intraperitoneal carcinomatosis, abdominal pain, history of colon cancer, extensive intraperitoneal adhesions and multifocal compromise to intestinal anatomy and function. PROCEDURE PERFORMED: Exploratory laparotomy, resection of a large fixed pelvic mass of probable right ovarian origin, abdominal hysterectomy, bilateral salpingo-oophorectomy, bilateral ureterolysis, extensive lysis of adhesions, repair of cystotomy. SURGEON: Oanh Becerril MD COMPLIANCE PARALEGAL: Sayra Dalton MD ANESTHESIA: General endotracheal anesthesia. ESTIMATED BLOOD LOSS: 700 mL FLUID RESUSCITATION: Included 2 units of packed red blood cells. HISTORY: This is a 67-year-old female who last year, underwent a right hemicolectomy with an ileotransverse reanastomosis for colon cancer. The colon cancer, had extended to regional lymph nodes. She was treated with chemotherapy, which was completed in May 2017. She did well for a number of months, but in recent times has had fairly rapid progression of abdominal distention, pain, and pressure and digestive dysfunction; found on exam and imaging to have a very large complex central pelvic mass as well as an abdominal wall mass, umbilical nodule, some ascites and intraperitoneal carcinomatous changes. 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 She has been counseled extensively regarding these findings and the complex and difficult nature of her case as well as the potential complex and difficult nature of surgery. Irrespective of surgical intervention, chemotherapy regimen has been recommended and is planned, again under the direction of Dr. Yasir Walsh. Given her history of colon cancer as well as the likelihood of intestinal involvement of this recurrent disease, I asked her to see Dr. Sayra Dalton in consultation, who has counseled her extensively as well, and we have coordinated surgery to presents now to move forward with our surgical objectives. She is seen again in the preop holding area accompanied by her family, where the findings and plan of care were again discussed and reviewed. Questions were asked and answered. She expressed good understanding and would like and agrees to move forward with surgery. FINDINGS: Findings included a tumor invading into the abdominal wall in the periumbilical region. In the peritoneal cavity there were adhesions throughout with multiple loops of large and small bowel, adherent one to another and to adjacent structures. The omentum and bowel was fixed overlying a large central mass in the pelvis which was at least 20 cm, extending from pelvic sidewall to pelvic sidewall, fixed in the posterior cul-de-sac and extending to the level of the umbilicus. There were tumor implants either on the surface of the bowel and/or tumor within the bowel wall or invading into the bowel wall in multiple locations with multiple areas of impending intestinal obstruction. At the completion of the case. The vast majority of grossly detectable tumor had been removed; however, there remained a tumor implants on the bowel mesentery and peritoneal surfaces; small in volume, but multifocal in nature. Areas of potential intestinal obstruction had all been addressed with multifocal areas of abnormal bowel removed and reanastomosis. Also, at the conclusion of the case, a very large fixed central pelvic tumor had been completely resected with shinto of relatively normal pelvic anatomy. STATEMENT OF COMPLEXITY/MODIFIER: The complexity of this case was significantly increased largely due to extensive adhesions throughout. Several hours in total were spent an extensive lysis of adhesions with at least an hour of surgical time directed at lysing adhesions to the pelvic mass to try to free it from its adjacent structures to gain access to the pelvis, remove the tumor and restore normal anatomy; modifier should be applied accordingly. Furthermore, Dr. Sayra Dalton stayed scrubbed for this case from open to close, acting is my certified surgical first assistant for the gynecologic portion of the case, and I stayed scrubbed in this case from open to close acting as her certified surgical first assistant for the colorectal portion of the case. DESCRIPTION OF PROCEDURE: She was taken to the operating room and placed in dorsal lithotomy position after general endotracheal anesthesia was administered. A timeout was undertaken. She was identified by site recognition and hospital ID bracelet and the proposed procedure was reviewed and confirmed. She was carefully positioned in padded Phil stirrups; one arm was secured to the side, one arm was out. All sites noted to be properly aligned with no malalignment or pressure points. She was prepped and draped in a sterile fashion. Exploratory laparotomy was directed by Dr. Sayra Dalton, who gained access into the peritoneal cavity; resected an invasive abdominal wall tumor and initiated extensive lysis of adhesions. Attention was directed toward resecting the pelvic mass, the origin of which could not clearly be delineated as it obscured visibility and access to all other structures initially. As loops of bowel and mesentery and surrounding adhesions were taken down circumferentially, it became apparent that there was a normal left tube and ovary and what appeared to be a normal small size uterus, suggesting that this large mass was arising from and replacing the right ovary as no other right ovarian tissue was identified. Retroperitoneal dissection was initiated on the right side and on the left side and additional adhesions were taken down, laterally and posteriorly. Deep inspection showed the ureters to be densely adherent to the posterior lateral aspect of this mass bilaterally. On the right side initially sharp dissection and blunt dissection were used to free the ureter, which was visibly and palpably recognizable with indwelling stents and a ureterolysis was carried out, the ureter from the mass along its course in the pelvis on the right side. On the left side, similar steps of blunt and sharp dissection were used to free the ureter from its attachments to the posterior lateral aspect of left side of the mass and then further posterior dissection was carried out. Next, the utero-ovarian ligament and adjacent attachments were taken down, adhesiolysis was further carried out to identify planes and to identify the pelvic structures. In the process of dissection, a cystotomy was noted, but this allowed further identification of the bladder plane which was then dissected off of the anterior uterus and lower uterine segment. An additional plane was now and the posterior uterus was and the posterior uterus where the uteroovarian ligaments were clamped and cut, dissection was carried out along the posterior wall of the uterus and cervix and carried around into the posterior cul-de-sac and then continued laterally, retracting the ureters to the sides and then elevating the mass out of the cul-de-sac to allow for further sharp and blunt dissection to remove the posterior aspect of the mass. Now there was enhanced visibility to the pelvis. There was a plaque of the mass capsule that remained adherent to the rectosigmoid colon and adjacent structures, which were subsequently dissected free with sharp dissection. Now, the left round ligament was doubly suture ligated and transected. The anterior and posterior leafs of the broad ligament were further dissected. The left ureter was again identified. The left infundibulopelvic ligament was isolated. The intervening peritoneum was opened. The infundibulopelvic ligament was clamped, cut, and doubly suture ligated. The uterine vessels on the left were further skeletonized. The bladder flap was dissected further off the lower uterine segment and cervix. The posterior peritoneum was already opened and the left uterine vessels were clamped, cut, and suture ligated. The cardinal, paracervical and uterosacral ligaments were isolated, clamped, cut, and suture ligated in a stepwise fashion, thereby freeing the attachments along the left side of the uterus and cervix. On the right side, all prominent pedicles attached to this mass had been either cauterized or if prominent, they were clamped, cut, and suture ligated, although the definitive gonadal vessels were difficult to identify and its attachments were somewhat vascular. Nevertheless, there was no remaining bleeding and the right ovarian mass had been detached from the uterus, so the posterior peritoneum was further clarified. The bladder flap was taken down off the right side and the right uterine vessels were skeletonized. The right uterine vessels were clamped, cut, and suture ligated as were the cardinal, paracervical and uterosacral ligaments, thereby freeing the attachments along the right side of the uterus and cervix. Curved Reyes clamps were placed below the cervix at the lateral vaginal angles. Sharp dissection was used to separate the cervix from the upper vagina and the specimen was removed, which included uterus, cervix, left tube and ovary and as noted above, the large pelvic tumor was thought to be of right ovarian origin. The vaginal cuff was closed and supported with interrupted [id number] sutures, starting at the lateral vaginal angles incorporating the uterosacral ligament and posterior peritoneum. The remainder of the cuff was closed, which rendered it completely hemostatic and well supported. The bladder was now inspected. There was a cystotomy along the dome of the bladder. Visual and palpable inspection of the external and internal surfaces of the bladder revealed no other abnormality. The edges of the cystotomy were isolated with Allis clamps and a running 3-0 Vicryl thickness continuous closure was used to repair the cystotomy from one edge, sewing from left to right continuing and secured and tied with a watertight repair and closure. The case was then turned back over to Dr. Dalton for additional extensive lysis of adhesions and multifocal intestinal resection and reanastomosis, after which the integrity of the anastomoses were checked. The pelvis and abdomen were thoroughly irrigated. Drains were placed. The abdominal wall was closed. There were no remaining foreign objects in the peritoneal cavity and the preliminary counts were correct and loop ileostomy was brought out and matured after abdominal wall closure, all of which these details will be characterized in Dr. Dalton operative report. At the conclusion of the case, preliminary and final counts were correct. She was returned to dorsal supine position and was pending reversal of anesthesia when we left the operating room to precede her to the postanesthesia care. MD NITA Chacko/navdeep , 02:54 PM , 03:16 PM
--- NOTE | 2018-03-10 15:56 | P.PN ---
Subjective Interval history: no new c/o, feels a bit confused at times, this is improving Physical Exam Vital signs: Vital Signs 03/09/18 16:00 03/09/18 19:00 03/09/18 20:00 Temperature 98.1 F 98.4 F Pulse Rate 100 H 96 H 99 H Respiratory Rate 12 10 L 12 Blood Pressure 145/67 H 139/70 146/67 H Pulse Oximetry 100 98 98 03/09/18 21:00 03/09/18 22:00 03/09/18 23:00 Temperature Pulse Rate 98 H 92 H 92 H Respiratory Rate 16 11 L 10 L Blood Pressure 138/64 127/58 L 146/88 H Pulse Oximetry 95 96 99 03/10/18 00:00 03/10/18 01:00 03/10/18 02:00 Temperature 98.6 F Pulse Rate 98 H 87 84 Respiratory Rate 13 10 L 11 L Blood Pressure 148/68 H 137/64 144/65 H Pulse Oximetry 100 100 100 03/10/18 03:00 03/10/18 04:00 03/10/18 08:00 Temperature 98.4 F 98.5 F Pulse Rate 84 88 93 H Respiratory Rate 11 L 11 L 18 Blood Pressure 137/62 151/68 H 146/65 H Pulse Oximetry 94 L 89 L 95 03/10/18 12:00 03/10/18 14:27 Temperature 98.3 F 98.6 F Pulse Rate 100 H 96 H Respiratory Rate 14 17 Blood Pressure 156/71 H 139/62 Pulse Oximetry 99 92 L Intake & Output 03/09/18 03/10/18 03/10/18 18:59 06:59 18:59 Intake Total 3000 / 3000 0 / 0 2099 Output Total 875 / 875 1005 / 1005 50 / 50 Balance 2125 / 2125 -1005 / -1005 2049 Weight 66.5 kg Intake: IV 3000 / 3000 0 / 0 2099 D5W/Normal Saline Inj 1,000 ML 3000 / 3000 0 / 0 1000 / 1000 @ 100 mls/hr IV.SIG .Q10H [facility] Rx#:[id number] Oral 0 / 0 Output: Urine Amount (Catheter) 650 / 650 800 / 800 Indwelling Urethral Catheter 650 / 650 800 / 800 Stool Amount (Stoma) 50 / 50 115 / 115 Right Lower Abdomen 50 / 50 115 / 115 Wound Drainage 175 / 175 90 / 90 50 / 50 # 1 Abdomen ALBERT Drain 100 / 100 15 / 15 # 2 Abdomen ALBERT Drain 75 / 75 75 / 75 Left Abdomen ALBERT Drain 20 / 20 Right Abdomen ALBERT Drain 30 / 30 Other: Date of Last Bowel Movement 03/10/18 03/10/18 - Constitutional no acute distress - Urinary Catheter Management 3-way Urethral Cath placed during this visit: yes Reason for continuing: Hourly intake/output Insertion date: 03/07/18 Insertion time: 13:57 Indwelling Urethral Catheter Cath placed during this visit: yes Reason for continuing: Hourly intake/output Insertion date: 03/07/18 Results - Labs CBC & Chem 7: 03/10/18 05:09 03/10/18 05:09 Laboratory Results - last 24 hr 03/07/18 03/10/18 03/10/18 11:13 05:09 05:09 WBC 14.7 H RBC 3.17 L Hgb 8.7 L Hct 26.8 L MCV 84.5 MCH 27.3 MCHC 32.3 RDW 19.0 H Plt Count 201 MPV 6.2 L Sodium 141 Potassium 3.2 L Chloride 105 D Carbon Dioxide 30.8 Anion Gap 5 BUN 20 H Creatinine 1.11 H Estimated GFR 49 L Random Glucose 122 H Calcium 7.0 L* Prot Corrected Calcium 8.4 L Total Protein 4.6 L MTS Gel Crossmatch See Detail Assessment and Plan - Assessment (1) Pelvic mass Code(s): R19.00 - Intra-abdominal and pelvic swelling, mass and lump, unspecified site Status: Acute Current visit: No - Plan POD#3 Stable in early post op period Findings and steps taken discussed, pathology c/w recurrent colon cancer, q&a cpm as outlined, oob with assist, spirometry, continue feliciano ostomy teaching ongoing at time of visit. anticipate need for short term rehab after d/c
--- NOTE | 2018-03-10 16:14 | P.PNWCN ---
Wound Care Nurse Consult Description: Consult for New Ostomy Teaching of RLQ per Dr Dalton Communicated with: Patient RN DIVISION FIELD INSPECTOR Recommendation: Empty pouch when 1/3-1/2 full of effluent. Change ostomy wafer (2 1/4") and pouch every 3-5 days and PRN for leaks. Assess stoma for output and moist red/pink color. *Notify physician of any changes in color or lack of output in 24 hours. Additional information: Patient seen on [address] [place] [address] for ostomy teaching and appliance change. Bowel Diversion Stoma - Bowel Stoma Right Lower Abdomen Stoma Edema: Yes Stoma Diameter: 38 (mm) Stoma Appearance: Protruding, Round (red, moist, functioning with dark green liquid effluent) Collection Device: Two-piece, Moldable Wafer Drainage Description: Liquid, Green Wafer Size: 2 1/4 Moldable Stoma Care: Pouch and Wafer Changed, Skin Care - Additional Information Additional Information: Assessed patient upon transfer from [facility] to [address] [place] [address]. Appliance found to be leaking with pouch open at the bottom. Wafer was removed using adhesive remover wipes. Peristomal skin (skin around stoma) was cleansed with warm water and washcloth and allowed to air dry. Peristomal skin was unremarkable. Midline incision is approximated and appears to have surgical glue upon assessment and is close to the stoma. Stoma was measured @ 1 1/2" round with mucocutaneous junction intact. Skin was then prepped using Cavilon skin barrier film and allowed to dry again. Moldable 2 1/4" wafer was applied with low pressure adaptor. Pouch was then attached to flange and closed at the bottom to avoid spillage. Supplies ordered for pouch to be changed when they reach the floor, as the pouch used is not transparent. Unfortunately the appliance needed to be changed and supplies were not available at the time of appliance change. Supplies were obtained from wound care office on [address] [place] [address] for temporary use. ONLY THE POUCH needs to be changed as soon as possible, not the wafer.
--- NOTE | 2018-03-10 16:46 | MP ---
cc: Natalia Dalton MD DATE OF OPERATION: 03/07/2018 ADMISSION DIAGNOSES: 1. Pelvic mass. 2. Intraabdominal mass. POSTOPERATIVE DIAGNOSES: 1. Pelvic mass. 2. Intra-abdominal mass. 3. Adhesions. 4. Metastatic tumor deposits in the sigmoid colon at the previous ileotransverse anastomosis and in the terminal ileum. PROCEDURE PERFORMED: 1. Exploratory laparotomy with extensive lysis of adhesions. 2. Excision of abdominal wall tumor. 3. Excision of pelvic mass. 4. Sigmoid resection. 5. Transverse colon resection. 6. Small bowel resection. 7. Diverting loop ileostomy. SURGEON: [place] ANESTHESIA: General per ET tube. ESTIMATED BLOOD LOSS: 700 mL INDICATIONS FOR PROCEDURE: This is a 67-year-old female with a history of having had a previous ascending colectomy for a stage III colon cancer. She underwent chemotherapy. This was about a year and a half ago, then this summer she began having some abnormalities noted and eventually ended up with CT evidence of a large pelvic mass with abdominal wall mass, as well as some possible disease in her bowel. CT-guided biopsies were performed, which were consistent with either a colon primary or an ovarian primary, and due to the replacement of the ovary, Dr. Becerril was involved for a resection. OPERATIVE FINDINGS: 1. The patient had a large 15 cm - 20 cm mass in her anterior abdominal wall in the periumbilical area. 2. The patient had a large 25 cm - 30 cm mass which appeared to be replacing the right ovary, but also involved the left ovarian tissue as well. Please see Dr. Becerril' notes for details on this portion of the procedure. OPERATIVE COURSE: The patient was brought to the operating room, placed in the supine position. After induction of general anesthesia, the patient was placed in Phil stirrups and all bony prominences were carefully padded. The skin at the anterior abdominal wall as well as the perineal area was then prepped and draped in the usual sterile fashion. Dr. Mckeon then came in and performed cystoscopy with placement of ureteral catheters; please see his operative note for details. A vertical midline incision was made beginning at the xiphoid and proceeding distally to the pubic symphysis and detouring to the right of the umbilicus using electrocautery. Dissection was carried down to the fascia. Immediately, the patient was noted to have a large mass in the anterior abdominal wall, kind of both above and below the umbilicus. The peritoneum was entered cephalad and the mass was carefully dissected free, taking quite a bit of the posterior fascia, particularly on the right with the mass. Eventually, we were able to remove the mass in its entirety from the abdominal wall and the remainder of the incision was completed. With this, immediately we noted the extremely large pelvic mass as seen on the CT scan kind of pushing the bowel out of the way and around it. The small bowel had multiple deposits particularly distally and the previous ileotransverse anastomosis was also fairly obstructed with tumor. The distal transverse colon was relatively free of tumor as was the splenic flexure and descending colon. The sigmoid colon; however, did again have an area that was somewhat obstructed with tumor in the mid sigmoid. A long and tedious lysis of adhesions was then performed using a combination of sharp and electrocautery, eventually freeing up all of the bowel from the tumor itself from the pelvic mass. The bowel was then run beginning at the ligament of Treitz and proceeding distally to the ileocolonic anastomosis. The proximal bowel was relatively free of disease and appeared healthy. This was measured and measured approximately 110 cm before the first area of tumor. The tumor along the remainder of the bowel length had several areas where it had actually eaten through the bowel wall and had multiple breaches in the bowel wall. The colon was as mentioned previously. At this point, after discussion, we felt that if we were successful in removing the pelvic portion of the tumor, bowel resections would be necessary. I then assisted with Dr. Becerril with removal of the pelvic mass, please see his operative note for details. Once this was removed, attention was returned to the bowel and after a discussion I felt the most appropriate treatment was to remove the areas of obstruction and perforation and then do a proximal diversion after reanastomosis. Beginning with the sigmoid area, the peritoneum was scored and a window was made in the mesentery both proximal and distal to the area of obstruction. The mesentery at this level was serially divided and ligated using 0-Vicryl ties. A DEE stapler was placed across the bowel proximally and distally. The distal bowel was then dissected free circumferentially and a TX60 stapling device was placed across the bowel at this level. The mesentery was divided using 0-Vicryl ties and proximally a pursestring stapling device was placed across the bowel at this level. The bowel was then amputated and sent to the back table where it was opened later and sent as specimen. The 25 EEA stapler was brought onto the field, placed into the rectum and gently advanced to the rectal stump without difficulty. The anvil from the 25 EEA stapler was placed in the cut in the bowel and the previously placed pursestring suture was then secured. The anvil was then into the stapler and the stapler was closed. This was held for 30 seconds, fired and removed, thus creating an enteroenterostomy. The distal anastomotic ring did appear to have a defect in it and indeed there was one area of incomplete anastomosis posterior. This was repaired in an interrupted [id number] fashion 2-layer fashion using 3-0 Vicryl. A small amount of warm normal saline was placed in the pelvis. The proximal bowel was occluded with pressure and air was insufflated into the rectum and after the repair, there was no sign of any further leakage noted. Attention was then turned to the previous ileocolonic anastomosis, which was also obstructed with tumor. Unfortunately, due to the multiple deposits with the defect in the bowel wall of the distal small bowel, it was necessary to take a fairly long segment, possibly 60 cm - 70 cm of small bowel with the previous anastomosis. A site was chosen distal to the anastomosis where the bowel was clear of tumor and a blue load of the DEE Endo stapler was placed across the bowel at this level. A site was chosen for proximal division where we have had some decent bowel to work with. The mesentery was opened and a reload of the [place] Endo stapler was placed across the bowel at this level. The intervening mesentery was serially divided and ligated using 0-Vicryl ties and specimen was sent for pathology. The antimesenteric corners of the staple line were then removed. One limb of the gastrointestinal staple was placed on each limb of the bowel. This was closed along the antimesenteric border; fired and removed, thus creating an enterotomy. The resulting defect was closed, transversely using the TX60 stapling device. Simple stay suture was placed at the distal end of the anastomosis and the mesentery was closed in a running fashion using 3-0 Vicryl. There was one further section of small bowel that was necessary to be removed, measuring possibly 6 cm - 8 cm. The mesentery was opened proximal and distal to the area of tumor and [place] Endo stapler was placed across the bowel proximally and distally to the area of tumor. The intervening mesentery was serially divided and ligated with 0-Vicryl ties and the specimen was sent for pathology. The antimesenteric corner of the staple line here were removed sharply, one limb of the ; staple was placed on each limb of the bowel. This was closed along the antimesenteric border, fired and removed; thus creating an enteroenterostomy. The resulting enterotomy was closed transversely with a TX60 stapling device. Simple stay suture was placed at the distal end of the anastomosis and the defect was closed in an interrupted fashion using 3-0. A site was then chosen for proximal diversion about just upstream from our most proximal anastomosis and this was indeed at about 100-105 cm from the ligament of Treitz. At this point, all dissection beds were examined. A ALBERT drain was placed in the pelvis from the right upper quadrant and into the upper abdomen from the left lower quadrant; 2 stab incisions. A site was chosen for the ileostomy one-third of the way from where the umbilicus would have been to the right anterior superior iliac spine. A 1.5 cm ellipse of skin was removed sharply and the preperitoneal fat was removed using electrocautery. A 1 cm incision was made in the fascia and the fibers of the rectus abdominis muscles were split. The posterior fascia was incised the length the anterior fascial incision and the defect was opened to allow 2 fingerbreadths easily. A loop of the ileum was then gently pulled out through the stomal aperture with the distal end in the caudal position. A window was made in the mesentery and the distal bowel was stapled using a reload of the TX60 stapling device. The peritoneal cavity was copiously irrigated with warm normal saline. A Seprafilm was placed over the anterior surface of the bowel. The fascia of the anterior abdominal wall at the midline incision was closed in a running fashion using looped #1-PDS with notation of the defect in the posterior fascia along one portion of that incision, but we were able to get the anterior fascia closed along its length. The wound was copiously irrigated with warm normal saline and the skin was closed in a running subcuticular fashion using 3-0 Vicryl. The stoma was then matured in typical Araceli fashion using 3-0 Vicryl and the ALBERT drains were secured in an interrupted fashion using 3-0 nylon. A stoma appliance was then placed, sterile dressings were then applied. The right ureteral stent was noted to have fallen out during the case. The left ureteral stent remained in place. All sponge, needle and instrument counts were correct and the patient was returned to the Postanesthesia Care Unit in stable condition. MD BUSTER Nelson/navdeep/shekhar , 03:03 PM , 03:30 PM
[2018-03-11] MEDS: Dextrose 5%/NaCl 0.9% Inj 1,000 ML IV.SIG SCH ×2 (06:44→17:49)
--- NOTE | 2018-03-11 07:36 | P.PN ---
Subjective Interval history: no new c/o, rested better, she reports feeling a bit stronger each day Physical Exam Vital signs: Vital Signs 03/10/18 08:00 03/10/18 12:00 03/10/18 14:27 Temperature 98.5 F 98.3 F 98.6 F Pulse Rate 93 H 100 H 96 H Respiratory Rate 18 14 17 Blood Pressure 146/65 H 156/71 H 139/62 Pulse Oximetry 95 99 92 L 03/10/18 16:00 03/10/18 16:24 03/10/18 18:57 Temperature 98.6 F Pulse Rate 87 Respiratory Rate 14 16 16 Blood Pressure 139/62 Pulse Oximetry 92 L 03/10/18 20:00 03/11/18 00:00 03/11/18 04:00 Temperature 99.2 F 99.1 F 98.8 F Pulse Rate 92 H 89 97 H Respiratory Rate 17 18 18 Blood Pressure 148/69 H 139/72 132/77 Pulse Oximetry 92 L 92 L 92 L Intake & Output 03/10/18 03/11/18 03/11/18 18:59 06:59 18:59 Intake Total 2200 / 2200 1891 / 1891 Output Total 50 / 50 4995 / 4995 Balance 2150 / 2150 -3104 / -3104 Weight 66.8 kg Intake: IV 2200 / 2200 1891 / 1891 D5W/Normal Saline Inj 1,000 ML 1000 / 1000 1891 / 1891 @ 100 mls/hr IV.SIG .Q10H JANESSA Rx#:[id number] KCl 20 mEq Premix Inj 20 meq In 100 / 100 100 ml @ 50 mls/hr IV.SIG Q2H PRN Rx#:[id number] Output: Urine 1550 / 1550 Stool 75 / 75 Urine Amount (Catheter) 3025 / 3025 Indwelling Urethral Catheter 3025 / 3025 Stool Amount (Stoma) 300 / 300 Right Lower Abdomen 300 / 300 Wound Drainage 50 / 50 45 / 45 Left Abdomen ALBERT Drain 20 / 20 25 / 25 Right Abdomen ALBERT Drain 30 / 30 20 / 20 Other: Date of Last Bowel Movement 03/10/18 03/10/18 - Constitutional no acute distress - Routine HEENT Exam Eye: Present: EOMI, PERRL - Routine Respiratory Exam Present: CTA bilaterally - Routine Cardiovascular Exam Present: RRR - Routine Abdominal Exam Present: wound, drain, ostomy (sites clean, dry, minimal s/s d/c on midline bandage) - Routine Neurological Exam Present: alert - Urinary Catheter Management 3-way Urethral Cath placed during this visit: yes Reason for continuing: Hourly intake/output Insertion date: 03/07/18 Insertion time: 13:57 Indwelling Urethral Catheter Cath placed during this visit: yes Reason for continuing: Hourly intake/output Insertion date: 03/07/18 Results - Labs CBC & Chem 7: 03/10/18 05:09 03/10/18 05:09 Assessment and Plan - Assessment (1) Pelvic mass Code(s): R19.00 - Intra-abdominal and pelvic swelling, mass and lump, unspecified site Status: Acute Current visit: No - Plan POD#4 continued incremental clinical improvement findings and steps taken again discussed, all c/w recurrent colon cancer cpm as outlined, oob with assist, ambulate, spirometry continue feliciano catheter with change to leg bag upon hospital discharge for ongoing drainage x 10 days anticipate need for short term rehab after d/c
[2018-03-11] MEDS: Heparin - SQ 10,000 UNITS/ML Vial SQ SCH ×2 (08:40→20:53)
[2018-03-11] MEDS: Famotidine PF Inj 20 MG/2 ML Vial IV.PUSH SCH ×2 (08:41→20:54)
[2018-03-11] MEDS: Sodium Chloride 0.9% 2 ML Flush BID IV.FLUSH SCH ×2 (08:41→20:54)
--- NOTE | 2018-03-11 09:20 | P.PNCS ---
Subjective Colorectal Surgery Post Op Day #: 4 Interval history: Pt with many questions. Somewhat deconditioned. Unable to open liquid containers at bedside. Pt needs to be OOB in chair TID for 1 hour and ambulate with walker TID with help. PT previously consulted. Stooling large liquid in Ileostomy bag. Hopefully solids will thicken outputs. Tolerance to pain meds pre op. Will try to transition to oral pain meds and Fentanyl patch. Decreased interval on CONVEYOR ATTENDANT to start oral pain meds for more level pain control. Explained to pt. Objective Result Diagrams: 03/10/18 05:09 03/10/18 05:09 Objective Remarks: Abd: flat,soft,upper 2 cm of wound slightly red. Will watch Assessment and Plan - Assessment (1) Pelvic mass Code(s): R19.00 - Intra-abdominal and pelvic swelling, mass and lump, unspecified site Status: Acute (2) Abdominal wall mass of epigastric region Code(s): R19.06 - Epigastric swelling, mass or lump Status: Acute - Plan See above US left arm ordered Labs ordered
[2018-03-11] MEDS: Morphine Inj 30 MG/30 ML PCA.VIAL PCA PRN (10:25)
[2018-03-11 11:04] LABS: Baso % (Auto) 0.2 % (0.0-2.0); Eos # (Auto) 0.1 th/mm3 (0.0-0.4); Eos % (Auto) 0.5 % (0.0-4.0); Hematocrit 29.1 % (35.0-46.0); Hemoglobin 9.6 gm/dL (11.6-15.3); Lymph # (Auto) 1.5 th/mm3 (1.0-4.8); Mean Corpuscular Hemoglobin 27.5 pg (27.0-34.0); Mean Corpuscular Volume 83.3 fL (80.0-100.0); Mean Platelet Volume 6.7 fL (7.0-11.0); Mono % (Auto) 7.7 % (0.0-8.0); Neut # (Auto) 9.8 th/mm3 (1.8-7.7); Neut % (Auto) 79.6 % (16.0-70.0); Platelet Count 201 th/mm3 (150-450); Red Blood Count 3.49 mil/mm3 (4.00-5.30); Red Cell Distribution Width 18.5 % (11.6-17.2); White Blood Count 12.3 th/mm3 (4.0-11.0)
[2018-03-11 11:38] LABS: Calcium 6.4 mg/dL (8.5-10.1); Carbon Dioxide 32.6 meq/L (21.0-32.0); Magnesium 0.9 mg/dL (1.5-2.5); Phosphorus 1.6 mg/dL (2.5-4.9)
[2018-03-11 11:57] LABS: Total Protein 5.3 g/dL (6.4-8.2)
[2018-03-11 12:01] LABS: Potassium 2.3 meq/L (3.5-5.1)
[2018-03-11] MEDS ORDERED: Potassium Chlor 20 mEq Premix 20 MEQ/100 ML PIGGYBACK IV.SIG ONE (15:00)
[2018-03-11] MEDS ORDERED: Potassium Chlor 20 mEq Premix 20 MEQ/100 ML PIGGYBACK IV.SIG PRN (17:00)
--- NOTE | 2018-03-11 18:46 | US ---
EXAM DATE: 03/11/2018 5:12 PM EDT AGE/SEX: 67 years / Female INDICATIONS: Left arm edema. CLINICAL DATA: This is the patient's initial encounter. Patient reports that signs and symptoms have been present for 4 - 6 days and indicates a pain score of 0/10. MEDICAL/SURGICAL HISTORY: . Colon cancer. Hydronephrosis. Port catheter. Appendectomy. Cholec ystectomy. Colon resection. COMPARISON: No prior exams available for comparison. FINDINGS: The vessels are compressible and augmentation response is documented. No filling defects a re seen. The flow is phasic with respiration. Other: None. CONCLUSION: 1. The study is negative for upper extremity deep venous thrombosis. Electronically signed by: Anurag Marti MD 03/11/2018 6:44 PM EDT
[2018-03-11] MEDS: Mag Sulf 1 gm/100 ml Premix 100 ML IV.SIG SCH ×2 (20:44→22:31)
[2018-03-11] MEDS: POTASSIUM PHOSPHATE IV.SIG SCH (22:58)
[2018-03-11] MEDS: SODIUM CHLOR 0.9% IV.SIG SCH (22:58)
[2018-03-12] MEDS: SODIUM CHLOR 0.9% IV.SIG SCH (03:40)
[2018-03-12] MEDS: POTASSIUM PHOSPHATE IV.SIG SCH (03:40)
[2018-03-12] MEDS: Dextrose 5%/NaCl 0.9% Inj 1,000 ML IV.SIG SCH (06:17)
--- NOTE | 2018-03-12 07:29 | P.PNCS ---
Subjective Colorectal Surgery Post Op Day #: 5 Interval history: Much more lucid since ENVIRONMENTAL SERVICES WORKER stopped. No N or V. Large serous drainage from upper ALBERT keeping her wet. Possibly from upper wound. Objective Result Diagrams: 03/11/18 10:15 03/11/18 18:54 Objective Remarks: Abd: flat,soft,upper wound clean. Serous fluid from there or ALBERT. No sign of wound infection Assessment and Plan - Assessment (1) Pelvic mass Code(s): R19.00 - Intra-abdominal and pelvic swelling, mass and lump, unspecified site Status: Acute (2) Abdominal wall mass of epigastric region Code(s): R19.06 - Epigastric swelling, mass or lump Status: Acute - Plan See above US left arm WNL Labs pending Continue to diurese and replete KCl
[2018-03-12] MEDS: Famotidine PF Inj 20 MG/2 ML Vial IV.PUSH SCH ×2 (08:15→21:56)
[2018-03-12] MEDS: Heparin - SQ 10,000 UNITS/ML Vial SQ SCH ×2 (08:15→21:55)
[2018-03-12] MEDS: Sodium Chloride 0.9% 2 ML Flush BID IV.FLUSH SCH ×2 (08:28→21:56)
[2018-03-12 08:54] LABS: Baso % (Auto) 0.1 % (0.0-2.0); Eos # (Auto) 0.1 th/mm3 (0.0-0.4); Eos % (Auto) 0.6 % (0.0-4.0); Hematocrit 25.7 % (35.0-46.0); Hemoglobin 8.9 gm/dL (11.6-15.3); Lymph # (Auto) 1.1 th/mm3 (1.0-4.8); Lymph % (Auto) 9.7 % (9.0-44.0); Mean Corpuscular HGB Conc 34.6 % (32.0-36.0); Mean Corpuscular Hemoglobin 28.2 pg (27.0-34.0); Mean Corpuscular Volume 81.6 fL (80.0-100.0); Mean Platelet Volume 6.7 fL (7.0-11.0); Mono % (Auto) 8.9 % (0.0-8.0); Neut # (Auto) 8.9 th/mm3 (1.8-7.7); Neut % (Auto) 80.7 % (16.0-70.0); Platelet Count 162 th/mm3 (150-450); Red Blood Count 3.15 mil/mm3 (4.00-5.30); Red Cell Distribution Width 18.8 % (11.6-17.2)
[2018-03-12 09:29] LABS: Carbon Dioxide 33.6 meq/L (21.0-32.0); Magnesium 1.3 mg/dL (1.5-2.5)
[2018-03-12 09:46] LABS: Total Protein 5.1 g/dL (6.4-8.2)
[2018-03-12 09:50] LABS: Potassium 2.9 meq/L (3.5-5.1)
[2018-03-12] MEDS: Potassium Chloride Inj 40 MEQ in Sodium Chloride 0.45 % Inj 1,000 ML IV.CONT SCH (17:58)
[2018-03-13] MEDS: Potassium Chloride Inj 40 MEQ in Sodium Chloride 0.45 % Inj 1,000 ML IV.CONT SCH ×3 (06:21→17:25)
--- NOTE | 2018-03-13 08:14 | P.PNONC ---
Subjective Interval history: POD #7 patient more awake pain controlled states has been OOB to chair for a couple hours yesterday would like to try and ambulate around room today, she is concerned about going to rehab denies vomiting, little nausea yesterday labs ordered electrolyte replacement as needed Objective Vital Signs/Intake & Output: Vital Signs 03/12/18 12:00 03/12/18 15:54 03/12/18 20:00 Temperature 98.4 F 98.3 F 98.4 F Pulse Rate 99 H 92 H 98 H Respiratory Rate 17 16 17 Blood Pressure 124/60 120/58 L 117/60 Pulse Oximetry 97 95 95 03/13/18 00:00 Temperature 98.7 F Pulse Rate 101 H Respiratory Rate 17 Blood Pressure 123/53 L Pulse Oximetry 94 L Intake & Output 03/12/18 03/13/18 03/13/18 18:59 06:59 18:59 Intake Total 480 / 480 2049.0909 / 2049.0909 Output Total 810 / 810 1795 / 1795 Balance -330 / -675 019.3520 / 254.0909 Weight 66.4 kg Intake: IV 1529.0909 / 1529.0909 KCl Inj 40 MEQ In 1/2 Normal 1020 / 1020 Saline Inj 1,000 ML @ 84 mls/hr IV.CONT .Q12H9M [facility] Rx#: [id number] Oral 480 / 480 520 / 520 Output: Urine 1300 / 1300 Stool Amount (Stoma) 600 / 600 425 / 425 Right Lower Abdomen 600 / 600 425 / 425 Wound Drainage 210 / 210 70 / 70 Left Abdomen ALBERT Drain 30 / 30 60 / 60 Right Abdomen ALBERT Drain 180 / 180 10 / 10 Other: Date of Last Bowel Movement 03/12/18 Result Diagrams: 03/12/18 08:25 03/12/18 08:25 Laboratory Results: Laboratory Results - last 24 hr 03/12/18 03/12/18 08:25 08:25 WBC 11.0 RBC 3.15 L Hgb 8.9 L Hct 25.7 L MCV 81.6 MCH 28.2 MCHC 34.6 RDW 18.8 H Plt Count 162 MPV 6.7 L Neut % (Auto) 80.7 H Lymph % (Auto) 9.7 Ector % (Auto) 8.9 H Eos % (Auto) 0.6 Baso % (Auto) 0.1 Neut # (Auto) 8.9 H Lymph # (Auto) 1.1 Ector # (Auto) 1.0 H Eos # (Auto) 0.1 Baso # (Auto) 0.0 WBC Differential . Differential Comment Auto diff final Sodium 139 Potassium 2.9 L* Chloride 97 L Carbon Dioxide 33.6 H Anion Gap 8 BUN 9 Creatinine 0.86 Estimated GFR 65 L Random Glucose 99 Calcium 6.0 L* Prot Corrected Calcium 6.9 L* Phosphorus 4.0 D Magnesium 1.3 L Total Protein 5.1 L Medications: Active Medications Generic Name Dose Route Start Last Admin Trade Name Freq PRN Reason Stop Dose Admin Hydrocodone Bitart/Acetaminophen 1 tab 03/07/18 21:34 03/12/18 05:16 [place] 5/325 PO 1 tab Q6H PRN Administration PAIN SCALE 1 TO 5 Hydrocodone Bitart/Acetaminophen 2 tab 03/07/18 21:35 03/13/18 02:23 [place] 5/325 PO 2 tab Q6H PRN Administration PAIN SCALE 6 TO 10 Hydrocodone Bitart/Acetaminophen 1 tab 03/12/18 15:25 03/12/18 18:05 [place] 5/325 PO 1 tab Q4H PRN Administration PAIN 1-10 AND/OR FEVER >101F Alprazolam 0.5 mg 03/10/18 12:46 03/10/18 13:33 Xanax PO 0.5 mg Q8H PRN Administration ANXIETY Famotidine 10 mg 03/09/18 09:00 03/12/18 21:56 Pepcid Pf Inj IV.PUSH 10 mg Q12HR JANESSA Administration Fentanyl 1 patch 03/08/18 15:00 03/11/18 15:39 Duragesic 50 Mcg Patch.72hr T-DERMAL 1 patch Q3D JANESSA Administration Furosemide 20 mg 03/11/18 09:00 03/12/18 17:59 Lasix Inj IV.PUSH 20 mg BID@0900,1800 JANESSA Administration Heparin Sodium (Porcine) 5,000 units 03/07/18 21:00 03/12/18 21:55 Heparin Inj SQ 5,000 units Q12HR JANESSA Administration Potassium Chloride 40 meq/ 1,020 mls @ 84 mls/hr 03/12/18 17:00 03/13/18 06: 21 Sodium Chloride IV.CONT 84 mls/hr .Q12H9M JANESSA Administration Patch Removal 1 each 03/11/18 15:00 03/11/18 17:32 Remove Old Patch T-DERMAL 1 each Q3D JANESSA Administration Potassium Chloride 20 meq 03/12/18 21:00 03/12/18 21:55 Klor-Con 10 PO 20 meq BID JANESSA Administration Sodium Chloride 2 ml 03/08/18 09:00 03/12/18 21:56 Ns Flush IV.FLUSH 2 ml BID JANESSA Administration Objective Remarks: GENERAL: Well-nourished, well-developed patient. SKIN: Warm and dry. HEAD: Normocephalic. EYES: No scleral icterus. No injection or drainage. RESPIRATORY: No accessory muscle use. GASTROINTESTINAL: Abdomen soft, non-tender, nondistended. dressing c/d/i, ALBERT X 2 , stoma pink EXTREMITIES: No cyanosis, or edema. swelling to left arm has improved MUSCULOSKELETAL: Adequate muscle tone. NEUROLOGICAL: No obvious focal deficit. Awake, alert, and oriented x3. PSYCHIATRIC: Appropriate mood and affect; insight and judgment normal. Assessment/Plan (1) Pelvic mass Code(s): R19.00 - Intra-abdominal and pelvic swelling, mass and lump, unspecified site Status: Acute Current visit: No - Plan POD #3 s/p X Lap excision abdominal wall tumor, pelvic tumor, sigmoid colon, transverse colon and small bowel pain controlled with mica machine operator diet advance per Dr. Dalton IVF physical therapy following director of religious activities following may need short term rehab upon discharge supportive care POD #7 pain controlled labs ordered, electrolyte replacement Tums BID OOB to chair and ambulate may need short term rehab director of religious activities following
[2018-03-13] MEDS: Famotidine PF Inj 20 MG/2 ML Vial IV.PUSH SCH ×2 (08:29→21:38)
[2018-03-13] MEDS: Heparin - SQ 10,000 UNITS/ML Vial SQ SCH ×2 (08:30→21:38)
[2018-03-13] MEDS: Sodium Chloride 0.9% 2 ML Flush BID IV.FLUSH SCH ×2 (09:34→21:39)
--- NOTE | 2018-03-13 11:14 | P.PNWCN ---
Wound Care Nurse Consult Description: Consult for New Ostomy Teaching of RLQ per Dr Dalton Communicated with: Keara RN regarding the potassium being given po. The potassium ordered is extended release and may not absorb prior to exiting body through the new ileostomy. Education regarding extended release tabs with ileostomy was given and should be communicated to Dr Hunt, the ordering physician. Recommendation: Empty pouch when 1/3-1/2 full of effluent. Change ostomy wafer (2 1/4") and pouch every 3-5 days and PRN for leaks. Assess stoma for output and moist red/pink color. *Notify physician of any changes in color or lack of output in 24 hours. Additional information: Patient not seen at this time.
[2018-03-13] MEDS ORDERED: Magnesium Oxide 400 MG Tablet PO SCH (11:30)
[2018-03-13 12:04] LABS: Hematocrit 27.9 % (35.0-46.0); Hemoglobin 9.2 gm/dL (11.6-15.3); Mean Corpuscular Hemoglobin 27.7 pg (27.0-34.0); Mean Corpuscular Volume 83.8 fL (80.0-100.0); Mean Platelet Volume 7.4 fL (7.0-11.0); Platelet Count 170 th/mm3 (150-450); Red Blood Count 3.33 mil/mm3 (4.00-5.30); Red Cell Distribution Width 19.2 % (11.6-17.2)
[2018-03-13 12:35] LABS: Anion Gap 7 meq/L (5-15); Blood Urea Nitrogen 9 mg/dL (7-18); Calcium 6.2 mg/dL (8.5-10.1); Carbon Dioxide 32.1 meq/L (21.0-32.0); Chloride 100 meq/L (98-107); Glomerular Filtration Rate Greater Than 89 mL/min (>89); Glucose,Random 84 mg/dL (74-106); Magnesium 1.3 mg/dL (1.5-2.5); Potassium 3.7 meq/L (3.5-5.1); Sodium 139 meq/L (136-145)
[2018-03-13 12:54] LABS: Total Protein 5.1 g/dL (6.4-8.2)
--- NOTE | 2018-03-13 14:56 | P.PNWCN ---
Wound Care Nurse Consult Description: Consult for New Ostomy Teaching of RLQ per Dr Dalton Communicated with: Patient Recommendation: Empty pouch when 1/3-1/2 full of effluent. Change ostomy wafer (2 1/4") and pouch every 3-5 days and PRN for leaks. Assess stoma for output and moist red/pink color. *Notify physician of any changes in color or lack of output in 24 hours. Additional information: Patient seen on for ostomy assessment Bowel Diversion Stoma - Bowel Stoma Right Lower Abdomen Stoma Edema: Yes Stoma Appearance: Protruding, Round (red, moist, functioning) Loop Supporting Cachorro: No Collection Device: Two-piece, Moldable Wafer Drainage Description: Liquid (yellow) Wafer Size: 2 1/4 Moldable Mis-Stomal Surrounding Tissue Sensation Description: No Symptoms - Additional Information Additional Information: Patient was on phone when entering room. Patient states that she feels as though everything is coming down on her all at once and wishes that we cover ostomy teaching at another time. However when patient realizes who remote mortgage underwriter is she immediately pulled up her gown and looked at her stoma and said "Oh yes you want to see this" and shows her stoma to remote mortgage underwriter. It was explained to the patient that she should always look at her stoma and assess for color and output. The wafer appears to be intact presently. Patient states that it was not that way over the weekend and someone changed it. Patient states being tired and asks for something cold to place on her midline incision for comfort. [employer] was contacted and the ice bag was requested. Patient thanked remote mortgage underwriter and remote mortgage underwriter left the room. Ostomy supplies are available in patient room should the appliance need to be changed again.
[2018-03-13] MEDS ORDERED: Magnesium Sulfate Inj 2 GM in Sodium Chlor 0.9% Inj 96 ML IV.SIG ONE (15:00)
--- NOTE | 2018-03-13 16:29 | P.PNCS ---
Subjective Colorectal Surgery Post Op Day #: 6 (comfortable) Objective Result Diagrams: 03/13/18 10:32 03/13/18 10:32 Objective Remarks: Abd: flat,soft,upper wound clean. Serous fluid from there or ALBERT. No sign of wound infection Stoma pink, functional Assessment and Plan - Assessment (1) Pelvic mass Code(s): R19.00 - Intra-abdominal and pelvic swelling, mass and lump, unspecified site Status: Acute (2) Abdominal wall mass of epigastric region Code(s): R19.06 - Epigastric swelling, mass or lump Status: Acute - Plan See above US left arm WNL Labs pending Continue to diurese and replete KCl
[2018-03-13] MEDS: Loperamide 2 MG Capsule PO SCH (17:22)
[2018-03-14] MEDS: Loperamide 2 MG Capsule PO SCH ×3 (03:57→12:28)
--- NOTE | 2018-03-14 08:17 | P.PN ---
Subjective Interval history: no new c/o, feeling a bit stronger, anxious about everything, q&a Physical Exam Vital signs: Vital Signs 03/13/18 11:20 03/13/18 15:45 03/13/18 16:00 Temperature 98.1 F 98.0 F Pulse Rate 90 91 H Respiratory Rate 17 16 16 Blood Pressure 126/58 L 111/56 L Pulse Oximetry 95 95 03/13/18 20:00 03/14/18 00:00 Temperature 98.4 F 98.1 F Pulse Rate 97 H 89 Respiratory Rate 16 16 Blood Pressure 124/57 L 115/54 L Pulse Oximetry 97 94 L Intake & Output 03/13/18 03/14/18 03/14/18 18:59 06:59 18:59 Intake Total 1540 / 1540 1020 / 1020 Output Total 2275 / 2275 3150 / 3150 Balance -735 / -735 -2130 / -2130 Weight 66 kg Intake: IV 1120 / 1120 1020 / 1020 KCl Inj 40 MEQ In 1/2 Normal 1020 / 1020 1020 / 1020 Saline Inj 1,000 ML @ 84 mls/hr IV.CONT .Q12H9M [facility] Rx#: [id number] Magnesium Sulfate Inj 2 GM In 100 / 100 NS Inj 96 ML @ 50 mls/hr IV.SIG ONCE ONE Rx#:[id number] Oral 420 / 420 Output: Urine 1200 / 1200 Urine Amount (Catheter) 2600 / 2600 Indwelling Urethral Catheter 2600 / 2600 Stool Amount (Stoma) 1025 / 1025 550 / 550 Right Lower Abdomen 1025 / 1025 550 / 550 Wound Drainage 50 / 50 Left Abdomen ALBERT Drain 50 / 50 Right Abdomen ALBERT Drain 0 / 0 Other: Date of Last Bowel Movement 03/13/18 03/13/18 # Bowel Movements 0 - Constitutional no acute distress - Routine Respiratory Exam Present: CTA bilaterally - Routine Cardiovascular Exam Present: RRR - Routine Abdominal Exam Present: soft, wound, drain (sites clean), ostomy (with output) - Routine Neurological Exam Present: alert - Urinary Catheter Management 3-way Urethral Cath placed during this visit: yes Reason for continuing: Hourly intake/output Insertion date: 03/07/18 Insertion time: 13:57 Indwelling Urethral Catheter Cath placed during this visit: yes Reason for continuing: Other continuation reason Insertion date: 03/07/18 Results - Labs CBC & Chem 7: 03/13/18 10:32 03/13/18 10:32 Laboratory Results - last 24 hr 03/13/18 03/13/18 10:32 10:32 WBC 14.0 H RBC 3.33 L Hgb 9.2 L Hct 27.9 L MCV 83.8 MCH 27.7 MCHC 33.0 RDW 19.2 H Plt Count 170 MPV 7.4 Sodium 139 Potassium 3.7 D Chloride 100 Carbon Dioxide 32.1 H Anion Gap 7 BUN 9 Creatinine 0.62 Estimated GFR Greater than 89 Random Glucose 84 Calcium 6.2 L* Prot Corrected Calcium 7.1 L* Phosphorus 2.0 L D Magnesium 1.3 L Total Protein 5.1 L Assessment and Plan - Assessment (1) Pelvic mass Code(s): R19.00 - Intra-abdominal and pelvic swelling, mass and lump, unspecified site Status: Acute Current visit: No - Plan POD#7 continued incremental clinical improvement aggressive efforts being made to maintain hydration, replete electrolytes improving with oob activity, oral intake cpm as outlined, oob with assist, ambulate, spirometry, fluid and lyte repletion continue feliciano catheter with change to leg bag upon hospital discharge for ongoing drainage x 10 days anticipate need for short term rehab after d/c, defer to colorectal for overall management and d/c plan
[2018-03-14] MEDS: Potassium Chloride Inj 40 MEQ in Sodium Chloride 0.45 % Inj 1,000 ML IV.CONT SCH (08:21)
[2018-03-14] MEDS: Sodium Chloride 0.9% 2 ML Flush BID IV.FLUSH SCH (08:27)
[2018-03-14] MEDS: Famotidine PF Inj 20 MG/2 ML Vial IV.PUSH SCH (08:29)
[2018-03-14] MEDS: Heparin - SQ 10,000 UNITS/ML Vial SQ SCH (08:29)
--- NOTE | 2018-03-14 11:57 | P.PNWCN ---
Wound Care Nurse Consult Description: Consult for New Ostomy Teaching of RLQ per Dr Dalton Communicated with: PREET Sarah Recommendation: Empty pouch when 1/3-1/2 full of effluent. Change ostomy wafer (2 1/4") and pouch every 3-5 days and PRN for leaks. Assess stoma for output and moist red/pink color. *Notify physician of any changes in color or lack of output in 24 hours. Additional information: Patient seen on for ostomy assessment and assistance with appliance change using 2 1/4" moldable wafer. Bowel Diversion Stoma - Bowel Stoma Right Lower Abdomen Stoma Edema: Yes Stoma Diameter: 38 (mm) Stoma Appearance: Protruding, Round (red, moist, functioning) Collection Device: Two-piece, Moldable Wafer Drainage Description: Liquid, Green Wafer Size: 2 1/4 Moldable Stoma Care: Pouch and Wafer Changed, Skin Care Mis-Stomal Skin Appearance: Intact - Additional Information Additional Information: Patient seen on during ostomy appliance change by LINING LAYER. Wafer size 2 1/4 " was applied prior to entering patient room. Unfortunately there was not a pouch available for the applied wafer at the time. Snuff Maker obtained the appropriate size pouch and brought to patient room. Pouch was closed at the end and applied to low pressure adaptor that was placed by the LINING LAYER. Patient was on the phone speaking with her daughter during appliance change and had just been cleaned up per the LINING LAYER. Snuff Maker to return for more teaching this afternoon.
[2018-03-14 17:20] VITALS: BP 133/58; PULSE 100; RESP 18; TEMP 98.4; O2SAT 97
== END 2018-03-14 16:15 ==
LOC: HSDC 10:52 → EDSTATUS 13:00 → HPAC 21:15 → N03 03-08 00:52 → N06 03-10 14:30
PROVIDERS: ADMIT Colon & Rectal Surgery; ATTEND Colon & Rectal Surgery

== ENCOUNTER 2018-04-21 17:51 | Inpatient (IN) ==
[2018-04-21] MEDS ORDERED: Sod Chloride 0.9% Inj 1,000 ML IV.SIG SCH (18:30)
[2018-04-21 18:38] LABS: Baso # (Auto) 0.1 th/mm3 (0.0-0.2); Baso % (Auto) 0.3 % (0.0-2.0); Eos % (Auto) 0.1 % (0.0-4.0); Hematocrit 35.5 % (35.0-46.0); Hemoglobin 12.4 gm/dL (11.6-15.3); Lymph # (Auto) 3.8 th/mm3 (1.0-4.8); Mean Corpuscular HGB Conc 34.8 % (32.0-36.0); Mean Corpuscular Hemoglobin 28.5 pg (27.0-34.0); Mean Corpuscular Volume 81.7 fL (80.0-100.0); Mean Platelet Volume 6.5 fL (7.0-11.0); Mono # (Auto) 1.8 th/mm3 (0.0-0.9); Mono % (Auto) 10.1 % (0.0-8.0); Neut # (Auto) 12.5 th/mm3 (1.8-7.7); Neut % (Auto) 68.5 % (16.0-70.0); Platelet Count 430 th/mm3 (150-450); Red Blood Count 4.35 mil/mm3 (4.00-5.30); Red Cell Distribution Width 20.7 % (11.6-17.2); White Blood Count 18.2 th/mm3 (4.0-11.0)
[2018-04-21 18:47] LABS: Activated Partial Thrombo Time 29.4 sec (23.4-31.7); INR 1.1 Ratio; Prothrombin Time 11.5 sec (9.8-11.6)
[2018-04-21 19:01] LABS: Anion Gap 15 meq/L (5-15)
--- NOTE | 2018-04-21 19:05 | XR ---
EXAM DATE: 04/21/2018 6:46 PM EST AGE/SEX: 67 years / Female INDICATIONS: Shortness of breath. CLINICAL DATA: This is the patient's initial encounter. Patient reports that signs and symptoms have been present for 3 days and indicates a pain score of 0/10. MEDICAL/SURGICAL HISTORY: Carcinoma, colon. . Infusaport. COMPARISON: [facility], CHEST 1V SINGLE AP, 03/21/2018. . FINDINGS: A single AP view of the chest demonstrates the lungs to be symmetrically aerated without evidence of mass, infiltrate or effusion. The cardiomediastinal contours are unremarkable. Left-sided Infuse-a-P ort in place. No evidence of pneumothorax. Osseous structures are intact. CONCLUSION: No acute intrathoracic disease. Stable examination. Electronically signed by: Andrew Bullard MD 04/21/2018 7:03 PM EST
[2018-04-21 19:07] LABS: Alanine Aminotransferase 40 U/L (10-53); Albumin 3.8 g/dL (3.4-5.0); Alkaline Phosphatase 262 U/L (45-117); Aspartate Aminotransferase 23 U/L (15-37); Blood Urea Nitrogen 172 mg/dL (7-18); Carbon Dioxide 30.5 meq/L (21.0-32.0); Chloride 70 meq/L (98-107); Glomerular Filtration Rate 5 mL/min (>89); Glucose,Random 118 mg/dL (74-106); Magnesium 1.6 mg/dL (1.5-2.5); Potassium 6.1 meq/L (3.5-5.1); Total Protein 9.1 g/dL (6.4-8.2)
--- NOTE | 2018-04-21 19:18 | ED ---
HPI General Chief complaint: Recheck/Abnormal Lab/Rx Stated complaint: Phy Sent Time Seen by Provider: 04/21/18 17:55 Source: patient and family Mode of arrival: EMS Limitations: no limitations History of Present Illness HPI narrative: Ms Davis is a 67 year old female who presents to the ED via EMS with complaints of abdominal pain, anorexia, inability to keep down fluids, and abnormal labs drawn yesterday. Dr Dalton called the ED today to discuss this patient. She has stage 4 colon cancer and underwent an iliostomy several weeks ago and was discharged from inpatient rehabilitation 2 weeks ago. Since discharge, the patient states that she has not been able to eat or drink and she feels she has lost weight and is extremely fatigued. She reports eating "very little" and she has only had several sips of juice in the last 2 days. The patient also complains of constant abdominal pain that feels like a tight band around her lower abdomen and is described as 7/10. She is prescribed hydrocodone 5mg/325mg but she cuts these in half before she takes them because they make her feel nauseous and lightheaded when she is unable to eat beforehand. The patient also states that when she has vomited in the last several days it has been tinged with pink, and she has to change her colostomy bag less and the stool is darker than normal. She also complains of increasing SOB at night but is not on any home O2, and has had several syncopal episodes including one today. The patient had regular follow up blood work performed yesterday and Dr Dalton contacted her stating she wanted her to go to the ED due to several abnormalities in the results. Her PMH is significant only for colon cancer in 2017 and had a colon resection and colostomy bag inserted, and finished her last round of chemo in May of 2017. Otherwise she has no other PMH. She denies tobacco, alcohol, or drug use. Related Data Home Medications Medication Instructions Recorded Confirmed hydrocodone-acetaminophen [[place]] 0.5 - 1 tab PO Q6H PRN 04/21/18 04/21/18 Allergies Allergy/AdvReac Type Severity Reaction Status Date / Time No Known Allergies Allergy Verified 04/21/18 17:55 Review of Systems ROS: all other systems reviewed are negative [facility] Medical History Medical History Colostomy in place (Acute) Abdominal mass (Acute) Bunion (Acute) Colon cancer (Acute) H/O pelvic mass (Acute) History of chemotherapy (Acute) History of hysterectomy (Acute) Hydronephrosis (Acute) Migraines (Acute) Port catheter in place (Acute) Surgical History Surgical History History of colon resection (Acute) Hx of appendectomy (Acute) Hx of cholecystectomy (Acute) S/P colon resection (Acute) S/P cystoscopy with ureteral stent placement (Acute) S/P exploratory laparotomy (Acute) Social History Social History Substance History: No History of Abuse Second Hand Smoke Exposure: No Smoking Status: Never smoker How Often Do You Have a Drink Containing Alcohol: Monthly or less Recent Travel in [facility] within the Last 8 Weeks: No Recent Out of Country Travel within the Last 8 Weeks: No Immunization History Tetanus Immunization: Unsure Exam Narrative Exam Narrative: GENERAL: The patient is a very thin female who appears in mild distress. Very anorexic SKIN: Cool and dry. Poor skin turgor with tenting present in the hands. HEAD: Atraumatic. Normocephalic. EYES: Pupils equal and round. No scleral icterus. No injection or drainage. ENT: No nasal bleeding or discharge. Mucous membranes pink and moist. NECK: Trachea midline. No JVD. CARDIOVASCULAR: Regular rate and rhythm. No murmurs, rubs, or gallops. Hypotensive. RESPIRATORY: No accessory muscle use. Clear to auscultation. Breath sounds equal bilaterally. GASTROINTESTINAL: Abdomen soft, and nondistended. Hepatic and splenic margins not palpable. Colostomy bag present in the right lower quadrant. Pain with palpation of the lower abdomen diffusely. MUSCULOSKELETAL: Extremities without clubbing, cyanosis, or edema. No obvious deformities. Full ROM of the upper and lower extremities bilaterally. 2+ pulses. NEUROLOGICAL: Awake and alert. No obvious cranial nerve deficits. Motor grossly within normal limits. Five out of 5 muscle strength in the arms and legs. Normal speech. PSYCHIATRIC: Appropriate mood and affect; insight and judgment normal. Course Initial Documented Vital Signs Temperature 97.6 F 04/21/18 17:59 Pulse Rate 88 04/21/18 17:59 Respiratory Rate 19 04/21/18 17:59 Blood Pressure 93/48 L 04/21/18 17:59 Pulse Oximetry 97 04/21/18 17:59 Last Documented Vital Signs Temperature 97.6 F 04/21/18 17:59 Pulse Rate 88 04/21/18 17:59 Respiratory Rate 19 18 17:59 Blood Pressure 93/48 L 04/21/18 17:59 Pulse Oximetry 97 04/21/18 17:59 Medical Decision Making JOSEFINA Attestation JOSEFINA supervised visit: Yes Attestation: I, Dr. Latham, have reviewed the advance practice practitioner's documentation and am in agreement, met with the patient face to face, made the diagnosis, and the medical decision making was done by me. See his note for further details. This is a 67-year-old female with history of colon cancer who was sent in by her colorectal surgeon Dr. Dalton for evaluation of acute renal failure, hyperkalemia, hyponatremia. Patient has had very little to eat or drink over the last several days. She complains of generalized weakness. Labs here show a sodium of 117, potassium 6.1, BUN 172, creatinine 8. Patient does not have history of renal failure. She was given calcium, D50, insulin, and Kayexalate in the emergency department as well as a liter of normal saline IV. She will be started on normal saline at 100cc/hr and admitted to the ICU for further treatment and evaluation. MDM Narrative Medical decision making narrative: 67-year-old female that presents to the ED for evaluation of dehydration. Patient was properly examined and was found to have signs and symptoms consistent appears to be dehydration likely secondary from anorexia. Before the patient had arrived Dr. Dalton had given me a report about the patient. Per Dr. Dalton patient has not been eating or drinking anything for almost the past 2 weeks. She apparently had blood work done yesterday and today Dr. Dalton got the results and she mentions that patient is hyponatremic and has what appears to be acute kidney failure. She wanted the patient to be admitted for hydration as well as to fix electrolytes. Patient apparently has a little family outside of [place] and per Dr. Dalton she also suggested may be having administrator social welfare speak with the patient about possible placement. Dr. Dalton wants to be consulted on the case when she gets admitted. Patient follows with Dr. Walsh for oncology but has no chemo currently. Labs and imaging were ordered on labs and imaging here show hypo-natremia, hyperkalemia and significant kidney failure. It all appears to be acute from the blood work the patient had just at the beginning of this month. Patient will start IV fluids. Case discussed with my attending who recommends admission to intensive care unit. Case discussed with Dr. Hubbard who recommends admission to his service. He wants also a CT scan of the abdomen. Medical Screen Exam Complete: Yes Emergency Medical Condition: Yes Medical Records Medical records reviewed: Yes I reviewed the patient's medical records. Lab Data Lab results reviewed: Yes I reviewed the patient's lab results. Result diagrams: 04/21/18 18:30 04/21/18 18:30 Lab Results 04/21/18 04/21/18 04/21/18 Range/Units 18:30 18:30 18:30 WBC 18.2 H (4.0-11.0) th/mm3 RBC 4.35 (4.00-5.30) mil/mm3 Hgb 12.4 (11.6-15.3) gm/dL Hct 35.5 (35.0-46.0) % MCV 81.7 (80.0-100.0) fL MCH 28.5 (27.0-34.0) pg MCHC 34.8 (32.0-36.0) % RDW 20.7 H (11.6-17.2) % Plt Count 430 (150-450) th/mm3 MPV 6.5 L (7.0-11.0) fL Prelim Diff (Auto) Slide review pending Neut % (Auto) 68.5 (16.0-70.0) % Lymph % (Auto) 21.0 (9.0-44.0) % Cataño % (Auto) 10.1 H (0.0-8.0) % Eos % (Auto) 0.1 (0.0-4.0) % Baso % (Auto) 0.3 (0.0-2.0) % Neut # (Auto) 12.5 H (1.8-7.7) th/mm3 Lymph # (Auto) 3.8 (1.0-4.8) th/mm3 [place]ata[place] # (Auto) 1.8 H (0.0-0.9) th/mm3 Eos # (Auto) 0.0 (0.0-0.4) th/mm3 Baso # (Auto) 0.1 (0.0-0.2) th/mm3 WBC Differential . Diff Scan Auto diff confirmed Differential Comment . PT 11.5 (9.8-11.6) sec INR 1.1 Ratio APTT 29.4 (23.4-31.7) sec Sodium 115 L* (136-145) meq/L Potassium 6.1 H (3.5-5.1) meq/L Chloride 70 L (98-107) meq/L Carbon Dioxide 30.5 (21.0-32.0) meq/L Anion Gap 15 (5-15) meq/L BUN 172 H (7-18) mg/dL Creatinine 8.06 H (0.50-1.00) mg/dL Estimated GFR 5 L (>89) mL/min Random Glucose 118 H (74-106) mg/dL Calcium 10.0 (8.5-10.1) mg/dL Magnesium 1.6 (1.5-2.5) mg/dL Total Bilirubin 0.7 (0.2-1.0) mg/dL AST 23 (15-37) U/L ALT 40 (10-53) U/L Alkaline Phosphatase 262 H (45-117) U/L Troponin I Less than 0.02 L (0.02-0.05) ng/mL Total Protein 9.1 H (6.4-8.2) g/dL Albumin 3.8 (3.4-5.0) g/dL 11/30/18 Range/Units 18:30 WBC (4.0-11.0) th/mm3 RBC (4.00-5.30) mil/mm3 Hgb (11.6-15.3) gm/dL Hct (35.0-46.0) % MCV (80.0-100.0) fL MCH (27.0-34.0) pg MCHC (32.0-36.0) % RDW (11.6-17.2) % Plt Count (150-450) th/mm3 MPV (7.0-11.0) fL Prelim Diff (Auto) Neut % (Auto) (16.0-70.0) % Lymph % (Auto) (9.0-44.0) % [place]ata[place] % (Auto) (0.0-8.0) % Eos % (Auto) (0.0-4.0) % Baso % (Auto) (0.0-2.0) % Neut # (Auto) (1.8-7.7) th/mm3 Lymph # (Auto) (1.0-4.8) th/mm3 [place]ata[place] # (Auto) (0.0-0.9) th/mm3 Eos # (Auto) (0.0-0.4) th/mm3 Baso # (Auto) (0.0-0.2) th/mm3 WBC Differential Diff Scan Differential Comment PT (9.8-11.6) sec INR Ratio APTT (23.4-31.7) sec Sodium (136-145) meq/L Potassium (3.5-5.1) meq/L Chloride (98-107) meq/L Carbon Dioxide (21.0-32.0) meq/L Anion Gap (5-15) meq/L BUN (7-18) mg/dL Creatinine (0.50-1.00) mg/dL Estimated GFR (>89) mL/min Random Glucose (74-106) mg/dL Calcium (8.5-10.1) mg/dL Magnesium (1.5-2.5) mg/dL Total Bilirubin (0.2-1.0) mg/dL AST (15-37) U/L ALT (10-53) U/L Alkaline Phosphatase (45-117) U/L Troponin I Cancelled (0.02-0.05) ng/mL Total Protein (6.4-8.2) g/dL Albumin (3.4-5.0) g/dL Imaging Data Attestation: I personally reviewed and interpreted this imaging study as follows : Radiologist's impression: Chest X-Ray 04/21/18 18:19 CONCLUSION: No acute intrathoracic disease. Stable examination. ECG Data Attestation: I personally reviewed and interpreted this ECG as follows: Interpretation: EKG shows sinus rhythm with no obvious sign of acute ischemia more specifically no ST elevations. Ventricular rate of 84 bpm, MD interval of 169 ms. Read by me and attending. Discharge Plan Discharge Disposition Patient Disposition: 30 Still Patient Discharge Details Diagnosis: Acute kidney failure, Acute hyperkalemia, Acute hyponatremia, Colon cancer Physicians Team ED Provider: Mik Latham ED Midlevel Provider: Omar Alexis Primary Care Provider: Afia Lee Attending Provider: Roverto Montes Status ED Status: Admitted Patient
[2018-04-21 19:24] LABS: Sodium 115 meq/L (136-145)
[2018-04-21] MEDS ORDERED: Calcium Gluconate Inj 1 GM in Dextrose 5% in Water Inj 100 ML IV.SIG ONE ×2 (19:37)
[2018-04-21] MEDS ORDERED: Sodium Polystyrene Sulfonate/Sorbitol Liq 15 GM/60 ML UDC PO ONE (19:44)
[2018-04-21] MEDS ORDERED: Sod Chloride 0.9% Inj 1,000 ML IV.CONT SCH ×2 (20:00→20:30)
[2018-04-21] MEDS ORDERED: Acetaminophen 325 MG Tablet PO PRN (20:23)
[2018-04-21] MEDS ORDERED: Bisacodyl 10 MG Supp RECTAL PRN (20:23)
--- NOTE | 2018-04-21 20:59 | P.HPCC ---
History of Present Illness Service: Critical care medicine Primary Care Physician: Afia Lee Chief Complaint: Abnormal labs, anorexia, acute kidney injury, hyperkalemia History of Present Illness: This is a 67-year-old female. Admission 04/21/2018. 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 She finished her last round of chemotherapy in May 2017. She has a port in the left side. Patient recently had expiratory laparotomy, fixed resection of pelvic mass, total vaginal hysterectomy bilateral salpingo-nephrectomy, ureteral lysis, cystostomy repair, excision of abdominal wall tumor, sigmoid, transverse colon resection with small bowel resection x2 and diverting loop ileostomy. She currently has an ileostomy in her right lower quadrant. This is done by Dr. Dalton 03/14. She is followed by Dr. Walsh. [facility]operation [facility] at [facility] and was discharged 2 weeks ago. Since that time,, the patient states that she has not been able to eat or drink and she feels she has lost weight and is extremely fatigued. She reports eating "very little" and she has only had several sips of juice in the last 2 days. The patient also complains of constant abdominal pain that feels like a tight band around her lower abdomen and is described as 7/10. She has had decreased urine output and states that she has had to change her colostomy bag less and the stool is darker than normal. She also complains of increasing SOB at night but is not on any home Baseline laboratories reveal a sodium of 115, potassium of 6.1. BUN of 170. Creatinine of 8. White blood cell count was 18,000. EKG reveals did not show any peaked T waves. She was given calcium gluconate, insulin/D50/bicarbonate and Kayexalate. Repeat laboratories are currently pending. She received 1 L normal saline is currently on NS at 84 cc an hour. Potassium is pending. We are asked to evaluate. CT abdomen/pelvis is pending at time of dictation. On evaluation abdomen there is ostomy site is pink with adequate stool output. She does appear dry on examination. She is hemodynamically stable. Inpatient Certification: I certify that the inpatient services were ordered in accordance with Medicare regulations governing the order. This includes certification that hospital inpatient services are reasonable and necessary and in the case of services not specified as inpatient-only under 42 CFR 419.22(n), that they are appropriately provided as inpatient services in accordance to with the 2-midnight benchmark under 43 CFR 412.3(e) Estimated Total Length of Stay (Days): 5 Plans for Post Hospital Care: Not yet determined Review of Systems Constitutional: Reports anorexia, Reports body ache(s), Reports daytime sleepiness, Denies chills Eyes: Denies blind spots, Denies blurry vision Ears, Nose, Mouth, and Throat: Denies abnormal hearing, Denies bleeding gums, Denies bad breath Cardiovascular: Reports shortness of breath, Reports shortness of breath with activity, Denies chest pain, Denies chest pain at rest, Denies shortness of breath when lying down, Denies shortness of breath causing sudden awakening Respiratory: Reports shortness of breath, Reports shortness of breath with activity, Denies chest congestion, Denies cough Gastrointestinal: Reports abdominal pain, Reports nausea, Reports vomiting, Denies black, tarry stools Genitourinary: Denies abnormal periods Musculoskeletal: Reports body aches, Denies abnormal walking, Denies back pain Skin/Breast: Denies bleeding lesions, Denies nail changes Neurologic: Denies abnormal hearing, Denies abnormal movements, Denies abnormal speech Psychiatric: Reports anxiety, Reports depression, Denies abnormal sleep pattern , Denies confusion Endocrine: Denies cold intolerance, Denies excessive sweating Hematologic/Lymphatic: Denies easy bleeding Allergic/Immunologic: Denies GI upset with certain foods PMFSH - History History Provided By: Patient - Medical History Medical History: Medical History (Last Updated 04/21/18 @ 21:02 by Roverto Montes MD) Mucinous adenocarcinoma of colon Abdominal mass Bunion Colon cancer H/O pelvic mass History of chemotherapy Hydronephrosis Migraines - Surgical History Surgical History: Surgical History (Last Updated 04/21/18 @ 21:03 by Roverto Montes MD) Colostomy in place (Chronic) History of colon resection Hx of appendectomy Hx of cholecystectomy Port catheter in place S/P colon resection S/P cystoscopy with ureteral stent placement S/P exploratory laparotomy History of hysterectomy - Family History Family History: Family History (Last Updated 04/21/18 @ 21:03 by Roverto Montes MD) Other Family history non-contributory - Social History I have reviewed the patient's Social History: Yes - Tobacco History Second Hand Smoke Exposure: No Smoking Status: Never smoker - Alcohol History How Often Do You Have a Drink Containing Alcohol: Monthly or less - Substance Use History Substance History: No History of Abuse - Travel History Recent Travel in the [place] Within the Last 8 Weeks: No Recent Travel Out of the Country Within the Last 8 Weeks: No - Immunization History Tetanus Immunization: Unsure Medications and Allergies Active Medications: Active Medications Acetaminophen (Tylenol) 650 mg PO Q6H PRN PRN Reason: Fever >101f Hydrocodone Bitart/Acetaminophen (Hurricane 5/325) 1 tab PO Q4H PRN PRN Reason: PAIN SCALE 1 TO 5 Al Hydroxide/Mg Hydroxide (Milk Of Magnesia Liq) 30 ml PO Q12H PRN PRN Reason: Mild Constipation Albuterol (Albuterol Neb (Prn)) 2.5 mg NEB Q2HR NEB PRN PRN Reason: SHORTNESS OF BREATH/WHEEZING Bisacodyl (Dulcolax Supp) 10 mg RECTAL DAILY PRN PRN Reason: SEVERE CONSITIPATION Chlorhexidine Gluconate (Chlorhexidine 2% Cloth) 3 pack TOPICAL DAILY@0400 [facility] Stop: 04/27/18 03:59 Chlorhexidine Gluconate (Chlorhexidine 2% Cloth) 3 pack TOPICAL DAILY@0400 PRN PRN Reason: Extra cloth needed Stop: 04/27/18 03:59 Sodium Chloride (Ns Inj) 1,000 mls @ 100 mls/hr IV.CONT .Q10H [facility] Last Admin: 04/21/18 20:38 Dose: 100 mls/hr Sodium Chloride (Ns Inj) 1,000 mls @ 84 mls/hr IV.CONT .[id number] [facility] Lactulose (Lactulose Liq) 30 ml PO DAILY PRN PRN Reason: SEVERE CONSITIPATION Morphine Sulfate (Morphine Inj) 2 mg IV.PUSH Q2H PRN PRN Reason: PAIN SCALE 6 TO 10 Ondansetron HCl (Zofran Inj) 4 mg IV.PUSH Q6H PRN PRN Reason: NAUSEA OR VOMITING Pantoprazole Sodium (Protonix Inj) 40 mg IV.PUSH DAILY [facility] Senna/Docusate Sodium (Mis-Colace) 1 tab PO BID [facility] Sennosides (Senokot) 17.2 mg PO Q12H PRN PRN Reason: Moderate Constipation Sodium Chloride (Ns Flush) 2 ml IV.FLUSH BID JANESSA Sodium Chloride (Ns Flush) 2 ml IV.FLUSH PRN PRN PRN Reason: FLUSH AFTER USING IV ACCESS Allergies Allergy/AdvReac Type Severity Reaction Status Date / Time No Known Allergies Allergy Verified 04/21/18 17:55 Home Medications Medication Instructions Recorded Confirmed Type hydrocodone-acetaminophen [Hurricane] 0.5 - 1 tab PO Q6H PRN 04/21/18 04/21/18 History Results - Labs CBC & Chem 7: 04/21/18 18:30 04/21/18 18:30 Labs: Short CBC 04/21/18 Range/Units 18:30 WBC 18.2 H (4.0-11.0) th/mm3 Hgb 12.4 (11.6-15.3) gm/dL Hct 35.5 (35.0-46.0) % Plt Count 430 (150-450) th/mm3 BMP 04/21/18 18:30 Sodium 115 L* Potassium 6.1 H Chloride 70 L Carbon Dioxide 30.5 BUN 172 H Creatinine 8.06 H Calcium 10.0 Cardiac Enzymes 04/21/18 04/21/18 Range/Units 18:30 18:30 Troponin I Less than 0.02 L Cancelled (0.02-0.05) ng/mL Liver Function 04/21/18 Range/Units 18:30 Total Bilirubin 0.7 (0.2-1.0) mg/dL AST 23 (15-37) U/L ALT 40 (10-53) U/L Alkaline Phosphatase 262 H (45-117) U/L Albumin 3.8 (3.4-5.0) g/dL - Imaging Impressions Chest X-Ray 04/21/18 18:19 CONCLUSION: No acute intrathoracic disease. Stable examination. Exam Vital signs: Vital Signs 04/21/18 17:59 Temperature 97.6 F Pulse Rate 88 Respiratory Rate 19 Blood Pressure 93/48 L Pulse Oximetry 97 Intake & Output 04/21/18 04/21/1818 06:59 18:59 06:59 Intake Total 1000 / 1000 Balance 1000 / 1000 Weight 45.359 kg Intake: IV 1000 / 1000 NS Inj 1,000 ML @ 1000 mls/hr 1000 / 1000 IV.SIG BOLUS J[facility] Rx#:[id number] - Constitutional no acute distress - Routine HEENT Exam Head: Present: normocephalic, atraumatic Eye: Present: EOMI, PERRL, normal accommodation ENT: Present: mucous membranes dry - Routine Neck Exam Present: supple, full ROM. Absent: JVD - Routine Chest/Breast/Axilla Exam Chest wall: Absent: tenderness Breast: Absent: tenderness Axillae: Absent: lymphadenopathy - Routine Respiratory Exam Present: CTA bilaterally. Absent: accessory muscle use - Routine Cardiovascular Exam Present: RRR, S1, S2. Absent: murmur - Routine Abdominal Exam Present: soft, normoactive bowel sounds, tenderness, ostomy. Absent: distended , mass - Routine Extremities Exam Absent: cyanosis, clubbing, edema - Routine Skin Exam Present: intact. Absent: cyanosis - Routine Neurological Exam Present: alert, oriented X3, CN II-XII intact. Absent: sensory deficit, motor deficit Septic Shock Reassessment Septic shock perfusion: reassessment completed Caprini VTE Risk Assessment Caprini VTE Risk Assessment: No/Low Risk (score <= 1) Caprini Risk Assessment Model: Point Value = 1 Point Value = 2 Point Value = 3 Point Value = 5 Age 41-60 Minor surgery BMI > 25 kg/m2 Swollen legs Varicose veins or History of unexplained or recurrent spontaneous Oral contraceptives or hormone replacement Sepsis (< 1 month) Serious lung disease, including pneumonia (< 1 month) Abnormal pulmonary function Acute myocardial infarction Congestive heart failure (< 1 month) History of inflammatory bowel disease Medical patient at bed rest Age 61-74 Arthroscopic surgery Major open surgery (> 45 min) Laparoscopic surgery (> 45 min) Malignancy Confined to bed (> 72 hours) Immobilizing plaster cast Central venous access Age >= 75 History of VTE Family history of VTE Factor V Leiden Prothrombin [id number] Lupus anticoagulant Anticardiolipin antibodies Elevated serum homocysteine Heparin-induced thrombocytopenia Other congenital or acquired thrombophilia Stroke (< 1 month) Elective arthroplasty Hip, pelvis, or leg fracture Acute spinal cord injury (< 1 month) Prophylaxis Regimen: Total Risk Factor Score Risk Level Prophylaxis Regimen 0-1 Low Early ambulation 2 Moderate Order ONE of the following: *Sequential Compression Device (SCD) *Heparin 5000 units SQ BID 3-4 Higher Order ONE of the following medications: *Heparin 5000 units SQ TID *Enoxaparin/Lovenox 40 mg SQ daily (WT < 150 kg, CrCl > 30 mL/min) *Enoxaparin/Lovenox 30 mg SQ daily (WT < 150 kg, CrCl > 10-29 mL/min) *Enoxaparin/Lovenox 30 mg SQ BID (WT < 150 kg, CrCl > 30 mL/min) AND/OR *Sequential Compression Device (SCD) 5 or more Highest Order ONE of the following medications: *Heparin 5000 units SQ TID (Preferred with Epidurals) *Enoxaparin/Lovenox 40 mg SQ daily (WT < 150 kg, CrCl > 30 mL/min) *Enoxaparin/Lovenox 30 mg SQ daily (WT < 150 kg, CrCl > 10-29 mL/min) *Enoxaparin/Lovenox 30 mg SQ BID (WT < 150 kg, CrCl > 30 mL/min) AND *Sequential Compression Device (SCD) Assessment and Plan - Assessment and Plan Plan: Neuro/Psych: Acetaminophen 650 mg by mouth every 6 hours as needed fever Hydrocodone/acetaminophen 5/325 -1 tablet every 4 hours as needed pain 1 through 5 Morphine sulfate 2 mg IV every 2 hours as needed CV: Currently not requiring vasopressors and/or antihypertensives EKG revealed no peak T waves. Currently normal saline at 100 cc an hour Resp: Nasal cannula to maintain saturations greater than or equal to 92% Incentive spirometry while awake As needed albuterol aerosols every 2 hours as needed GI: Severe protein calorie malnutrition Recent exploratory laparotomy with extensive removal of intraperitoneal tumor including resection of large pelvic mass from right ovary, hysterectomy, bilateral salpingo-fragment, multifocal intense resection with primary anastomosis, intraperitoneal tumor cytoreduction and diverting ileostomy. Dr. Dalton. N.p.o. status pantoprazole for GI prophylaxis Docusate sodium/senna 1 tablet twice daily for bowel regimen Check/follow-up on CT abdomen/pelvis : Guadalupe catheter for accurate I's and O's in a critically ill patient Endo: Sliding scale insulin Accu-Cheks to maintain euglycemia Check TSH Renal: Acute kidney injury Check urine sodium, creatinine and eosinophils. 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 Follow trends. No indication for transfusion of blood products Coags within normal limits Follow-up on CT abdomen/pelvis Dr. Walsh will be consulted ID: Monitor for signs and symptomatology of infection FEN: Hyponatremia Hyperkalemia Hypochloremia Check TSH, cortisol, uric acid, urine sodium, urine Osm serum osm. Received D50/insulin/bicarbonate and calcium gluconate and Kayexalate in ED. Recheck potassium at midnight Recheck BMP at midnight, 4 AM and 8 AM. Follow trends. Received 1 L normal saline in ED. MSK: PT evaluate and treat Access -Okay to utilize left Port-A-Cath. Peripheral IVs. Prophylaxis -GI -pantoprazole -DVT -SCD/heparin subcu Level 3 H&P Code Status: Full code Discussed Condition With: Patient. ED physician food and beverage assistant. Care plan discussed and all questions answered.
[2018-04-21] MEDS ORDERED: Dextrose 50% in Water 50 ML Vial IV.PUSH PRN (21:12)
--- NOTE | 2018-04-21 21:51 | CT ---
EXAM DATE: 04/21/2018 9:41 PM EST AGE/SEX: 67 years / Female INDICATIONS: Constant abdominal pain, lack of appetite, fatigue. CLINICAL DATA: This is the patient's initial encounter. Patient reports that signs and symptoms have been present for 1 week and indicates a pain score of 6/10. MEDICAL/SURGICAL HISTORY: Carcinoma, colon. Colostomy. Colon resection. Appendectomy. Hyster ectomy, cholecystectomy. RADIATION DOSE: 6.89 CTDI (mGy) COMPARISON: POI, CT ABDOMEN AND PELVIS W/ CONTRAST, 12/27/2017. . TECHNIQUE: Multiple contiguous axial images were obtained through the abdomen. Images were obtained using multiple row detector helical technique. Using automated exposure control and adjustment of the mA and/or kV according to patient size, radiation dose was kept as low as reasonably achievable to o btain optimal diagnostic quality images. DICOM format image data is available electronically for rev iew and comparison. FINDINGS: Lower Lungs: The visualized lower lungs are clear. Liver: The liver has a homogeneous density with a cystic mass again noted in the anterior right lobe of the liver without significant change. There is no dilation of the biliary tree. There is a large i ll-defined mass again noted adjacent to the gallbladder which is increased in size. This is poorly de fined by the lack of intravenous and oral contrast. As appears to measure up to approximately 4.2 x 3 .5 cm in greatest diameter. On the prior study this measured up to 3.2 cm. There are no definite calc ified gallstones. There is fluid or thickening surrounding the gallbladder. Spleen: Homogeneous density without enlargement. Pancreas: Unremarkable without mass or calcification. Kidneys: Normal in size and shape. No evidence of mass or hydronephrosis. Adrenal Glands: Unremarkable. Aorta: The aorta and proximal iliac vessels are grossly unremarkable without aneurysmal dilation. Bowel/Mesentery: No oral or intravenous contrast was given limiting the sensitivity of the exam. The bowel loops are poorly delineated especially in the pelvis. There is interval postsurgical changes s tatus post partial colectomy. The previously noted large pelvic mass is no longer visualized. There i s a smaller masslike structure now noted in the presacral region. This measures up to approximately 4 .6 x 2.5 cm. There is a colectomy in the right lower quadrant. Abdominal Wall: Intact. Retroperitoneum: No evidence of adenopathy in the retrocrural, para-aortic, or deep pelvic regions. Bladder: Contours are smooth. Reproductive Organs: No abnormal masses or calcifications seen. Inguinal: The inguinal region is unremarkable without evidence of adenopathy. Bony Structures: PA, degenerative change and scoliosis are present. CONCLUSION: 1. Interval increase in the size of the mass previously noted adjacent to the gallbladder which now measures up to 4.2 x 3.5 cm in diameter. 2. The previously noted large pelvic mass is no longer visualized. There is a smaller masslike struc ture now noted in the presacral region. 3. Interval postsurgical changes status post partial colectomy. The bowel loops are poorly visualize d and evaluated due to lack of intravenous and oral contrast. Mesenteric masses may be obscured. 4. Colectomy in the right lower quadrant. Electronically signed by: Surjit Shabazz MD 04/21/2018 9:50 PM EST
[2018-04-21] MEDS: Senna/Docusate Sodium 8.6/50 MG Tablet PO SCH (22:10)
[2018-04-22 00:04] LABS: Bacteria,Urine Occasional /hpf; Bilirubin,Urine Negative (Negative); Clarity,Urine Cloudy (Clear); Color,Urine Yellow (Yellw/Straw); Glucose,Urine (UA) Negative (Negative); Hyaline Casts,Urine 5 /lpf (0-3); Leukocyte Esterase,Urine Large (Negative); Mucus,Urine Few /lpf (Occasional); Nitrite,Urine Negative (Negative); Specific Gravity,Urine 1.013 (1.002-1.035); Squamous Epithelial Cell,Urine 1 /hpf (0-5)
[2018-04-22 00:06] LABS: Creatinine,Urine Random 94 mg/dL (27-300); Sodium,Urine Random 10 meq/L
[2018-04-22 00:29] LABS: Anion Gap 13 meq/L (5-15); Blood Urea Nitrogen 147 mg/dL (7-18); Calcium 9.2 mg/dL (8.5-10.1); Carbon Dioxide 30.9 meq/L (21.0-32.0); Chloride 79 meq/L (98-107); Glomerular Filtration Rate 6 mL/min (>89); Glucose,Random 79 mg/dL (74-106); Lipase 202 U/L (73-393); Potassium 4.4 meq/L (3.5-5.1)
[2018-04-22 00:33] LABS: Creatine Kinase 31 U/L (26-192)
[2018-04-22 00:34] LABS: Sodium 123 meq/L (136-145)
[2018-04-22] MEDS: Insulin NovoLOG Aspart Correctional Sugar Inj SQ SCH ×4 (00:38→17:38)
[2018-04-22] MEDS: Chlorhexidine Gluconate 2% 1 Pack (2 Cloths) TOPICAL SCH (03:09)
[2018-04-22 03:53] LABS: Baso % (Auto) 0.3 % (0.0-2.0); Eos # (Auto) 0.1 th/mm3 (0.0-0.4); Eos % (Auto) 0.4 % (0.0-4.0); Hematocrit 29.9 % (35.0-46.0); Hemoglobin 10.1 gm/dL (11.6-15.3); Lymph # (Auto) 3.9 th/mm3 (1.0-4.8); Lymph % (Auto) 30.3 % (9.0-44.0); Mean Corpuscular HGB Conc 33.7 % (32.0-36.0); Mean Corpuscular Hemoglobin 27.6 pg (27.0-34.0); Mean Corpuscular Volume 81.8 fL (80.0-100.0); Mean Platelet Volume 6.5 fL (7.0-11.0); Mono # (Auto) 1.5 th/mm3 (0.0-0.9); Mono % (Auto) 11.5 % (0.0-8.0); Neut # (Auto) 7.3 th/mm3 (1.8-7.7); Neut % (Auto) 57.5 % (16.0-70.0); Platelet Count 307 th/mm3 (150-450); Red Blood Count 3.66 mil/mm3 (4.00-5.30); Red Cell Distribution Width 20.9 % (11.6-17.2); White Blood Count 12.7 th/mm3 (4.0-11.0)
[2018-04-22] MEDS ORDERED: Chlorhexidine Gluconate 2% 1 Pack (2 Cloths) TOPICAL PRN (04:00)
[2018-04-22 04:04] LABS: Activated Partial Thrombo Time 27.1 sec (23.4-31.7); INR 1.2 Ratio; Prothrombin Time 11.8 sec (9.8-11.6)
[2018-04-22 04:17] LABS: Ovalocytes 1+; Platelet Estimate Normal (Normal); Platelet Morphology Normal (Normal)
[2018-04-22 04:33] LABS: Alanine Aminotransferase 30 U/L (10-53); Albumin 2.9 g/dL (3.4-5.0); Alkaline Phosphatase 202 U/L (45-117); Anion Gap 13 meq/L (5-15); Aspartate Aminotransferase 20 U/L (15-37); Blood Urea Nitrogen 156 mg/dL (7-18); Calcium 8.8 mg/dL (8.5-10.1); Carbon Dioxide 31.2 meq/L (21.0-32.0); Chloride 82 meq/L (98-107); Glomerular Filtration Rate 6 mL/min (>89); Glucose,Random 84 mg/dL (74-106); Magnesium 1.5 mg/dL (1.5-2.5); Phosphorus 8.1 mg/dL (2.5-4.9); Potassium 4.7 meq/L (3.5-5.1); Sodium 126 meq/L (136-145); Total Protein 7.1 g/dL (6.4-8.2); Uric Acid 14.5 mg/dl (2.6-6.0)
[2018-04-22] MEDS ORDERED: Sodium Chloride 0.45 % Inj 500 ML IV.SIG ONE (04:57)
[2018-04-22] MEDS ORDERED: Mag Sulf 1 gm/100 ml Premix 100 ML IV.SIG ONE (04:57)
[2018-04-22] MEDS ORDERED: Sodium Chloride 0.45 % Inj 1,000 ML IV.CONT SCH (05:00)
[2018-04-22] MEDS: Senna/Docusate Sodium 8.6/50 MG Tablet PO SCH ×2 (08:05→21:40)
[2018-04-22] MEDS: Pantoprazole Inj 40 MG Vial IV.PUSH SCH (08:05)
[2018-04-22] MEDS: Sod Chloride 0.9% Inj 1,000 ML IV.CONT SCH ×2 (11:02→19:45)
--- NOTE | 2018-04-22 11:12 | P.PNCC ---
Subjective Subjective Remarks/Hospital Course: This is a 67-year-old female. Admission 04/21/2018. 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 She finished her last round of chemotherapy in May 2017. She has a port in the left side. Patient recently had expiratory laparotomy, fixed resection of pelvic mass, total vaginal hysterectomy bilateral salpingo-nephrectomy, ureteral lysis, cystostomy repair, excision of abdominal wall tumor, sigmoid, transverse colon resection with small bowel resection x2 and diverting loop ileostomy. She currently has an ileostomy in her right lower quadrant. This is done by Dr. Dalton 03/14. She is followed by Dr. Walsh. Postoperation she was at [facility] and was discharged 2 weeks ago. Since that time,, the patient states that she has not been able to eat or drink and she feels she has lost weight and is extremely fatigued. She reports eating "very little" and she has only had several sips of juice in the last 2 days. The patient also complains of constant abdominal pain that feels like a tight band around her lower abdomen and is described as 7/10. She has had decreased urine output and states that she has had to change her colostomy bag less and the stool is darker than normal. She also complains of increasing SOB at night but is not on any home Baseline laboratories reveal a sodium of 115, potassium of 6.1. BUN of 170. Creatinine of 8. White blood cell count was 18,000. EKG reveals did not show any peaked T waves. She was given calcium gluconate, insulin/D50/bicarbonate and Kayexalate. Repeat laboratories are currently pending. She received 1 L normal saline is currently on NS at 84 cc an hour. Potassium is pending. We are asked to evaluate. CT abdomen/pelvis is pending at time of dictation. On evaluation abdomen there is ostomy site is pink with adequate stool output. She does appear dry on examination. She is hemodynamically stable. 04/22/18 Lying in bed clinically improving. Hyperkalemia has resolved. BUN 156 today, Creat 7. D/w Dr. Harding. Additional 2L NS boluses ordered and increase maintenance fluid to [address] abdomen pelvis showed interval increase in the size of the mass previously noted adjacent to the gallbladder which now measures up to 4.2 x 3.5 cm in diameter. The previously noted large pelvic mass is no longer visualized. There is a smaller masslike structure now noted in the presacral region. CRS following. Objective Vital Signs / I&O: Vital Signs 04/21/18 17:59 04/21/18 21:48 04/21/18 21:59 Temperature 97.6 F Pulse Rate 88 73 86 Respiratory Rate 19 18 19 Blood Pressure 93/48 L 97/57 L Pulse Oximetry 97 98 99 04/21/18 22:00 04/22/18 00:00 04/22/18 02:00 Temperature 98.3 F 97.7 F Pulse Rate 79 77 74 Respiratory Rate 20 13 Blood Pressure 102/52 L 101/57 L Pulse Oximetry 100 99 04/22/18 04:00 04/22/18 06:00 04/22/18 07:00 Temperature 98.2 F 98.4 F Pulse Rate 69 73 79 Respiratory Rate 14 16 Blood Pressure 99/54 L 88/51 L Pulse Oximetry 98 96 04/22/18 08:00 Temperature Pulse Rate 67 Respiratory Rate 19 Blood Pressure 96/50 L Pulse Oximetry 98 Intake & Output 04/21/18 04/22/18 04/22/18 18:59 06:59 18:59 Intake Total 2409 / 2409 100 / 100 Output Total 795 / 795 Balance 1614 / 1614 100 / 100 Weight 45.359 kg 49.5 kg Intake: IV 2409 / 2409 100 / 100 NS Inj 1,000 ML @ 84 mls/hr IV. 799 / 799 CONT .[id number] [facility] Rx#:[id number] Calcium Gluconate Inj 1 GM In 110 / 110 D5W Inj 100 ML @ 110 mls/hr IV. SIG ONCE ONE Rx#:[id number] Magnesium Sulfate 1 gm/D5W 100 100 / 100 ml Premix 100 ML @ 100 mls/hr IV.SIG ONCE ONE Rx#:[id number] NS Inj 1,000 ML @ 1000 mls/hr 1000 / 1000 IV.SIG BOLUS [facility] Rx#:[id number] 1/2 Normal Saline Inj 500 ML @ 500 / 500 Wide Open IV.SIG BOLUS ONE Rx#: [id number] Output: Urine 225 / 225 Urine Amount (Catheter) 335 / 335 Straight 335 / 335 Stool Amount (Stoma) 235 / 235 Pre-Hospital: Right Lower 235 / 235 Abdomen Other: # Incontinent Voids 1 Date of Last Bowel Movement 04/22/18 04/22/18 Weight On Admission 49 kg Result Diagrams: 04/22/18 03:30 04/22/18 03:30 Objective Remarks: GEN: Lying in bed, no acute distress HEENT: EOMI, PERRL, normal accommodation. Mucous membranes dry Neck: supple, full ROM. Absent: JVD RESP: CTA bilaterally. Absent: accessory muscle use CVS: RRR, S1, S2. Absent: murmur GI: soft, normoactive bowel sounds, tenderness, ostomy. Absent: distended, mass EXT:cyanosis, clubbing, edema SKIN: Dry cyanosis NEURO: alert, oriented X3, CN II-XII intact. No sensory deficit, motor deficit Assessment and Plan - Assessment and Plan Plan: Neuro/Psych: Acetaminophen 650 mg by mouth every 6 hours as needed fever Hydrocodone/acetaminophen 5/325 -1 tablet every 4 hours as needed pain 1 through 5 Morphine sulfate 2 mg IV every 2 hours as needed CV: Currently not requiring vasopressors and/or antihypertensives EKG revealed no peak T waves. Currently normal saline at 100 cc an hour, increase 150 ml per hour. NS 2L bolus Resp: Nasal cannula to maintain saturations greater than or equal to 92% Incentive spirometry while awake As needed albuterol aerosols every 2 hours as needed GI: Severe protein calorie malnutrition Recent exploratory laparotomy with extensive removal of intraperitoneal tumor including resection of large pelvic mass from right ovary, hysterectomy, bilateral salpingo-fragment, multifocal intense resection with primary anastomosis, intraperitoneal tumor cytoreduction and diverting ileostomy. Dr. Dalton. N.p.o. status pantoprazole for GI prophylaxis Docusate sodium/senna 1 tablet twice daily for bowel regimen CT abdomen/pelvis-interval increase in the size of the mass previously noted adjacent to the gallbladder which now measures up to 4.2 x 3.5 cm in diameter. The previously noted large pelvic mass is no longer visualized. There is a smaller masslike structure now noted in the presacral region. CRS and Onc following : Guadalupe catheter for accurate I's and O's in a critically ill patient Endo: Sliding scale insulin Accu-Cheks to maintain euglycemia. TSH Renal: Acute kidney injury Renal consulted. 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 Follow trends. No indication for transfusion of blood products Coags within normal limits CT abdomen/pelvis-as above Dr. Walsh consulted ID: Monitor for signs and symptomatology of infection FEN: Hyponatremia Hyperkalemia Hypochloremia F/U TSH, cortisol, uric acid, urine sodium, urine Osm serum osm. Hyponatremia is most likely from sev dehydration Received D50/insulin/bicarbonate and calcium gluconate and Kayexalate in ED. Now potassium normalized Received 1 L normal saline in ED. 2L bolus now MSK: PT evaluate and treat Access -Okay to utilize left Port-A-Cath. Peripheral IVs. Prophylaxis -GI -pantoprazole -DVT -SCD/heparin subcu Level 2 Consult [facility] to assume care in am 12/2
[2018-04-22 11:59] LABS: Calcium 8.4 mg/dL (8.5-10.1); Carbon Dioxide 29.1 meq/L (21.0-32.0); Potassium 3.9 meq/L (3.5-5.1)
[2018-04-22] MEDS ORDERED: Sod Chloride 0.9% Inj 2,000 ML IV.SIG ONE (12:00)
--- NOTE | 2018-04-22 12:50 | MB ---
cc: Violette Ford MD DATE: 04/22/2018 REASON FOR CONSULTATION: Acute kidney injury with very high BUN, creatinine, and hyperkalemia. HISTORY OF PRESENT ILLNESS: This is a 67-year-old female with a past medical history of adenocarcinoma, history of carcinomatosis, colon cancer, migraine headache, who was admitted because of generalized weakness, decreased appetite, nausea, and vomiting. I was called to see the patient because of a very high BUN and creatinine. The patient was found to have BUN of 172, and a creatinine of 8.0 on admission. The potassium was 6.1 on admission, and also has hyponatremia with sodium of 115. The patient has not been eating well for the last few weeks. She was admitted and recently discharged. Her last creatinine before this admission was 1.3-1.4. This was in the beginning of March, probably she was discharged at that time. The patient has been following with hematology/oncology, and she was also seen by urology in February. She had bilateral ureteral catheters placed at that time. The patient has a decreased appetite and has nausea and vomiting going on for the last 3 weeks. She came to the hospital, and at that time, she was very dehydrated. She was given normal saline. The potassium was high, which improved after the treatment. She has mild abdominal discomfort. She has a colostomy, through which, according to her, is draining mainly fluids. There was no blood in the colostomy. She has a history of difficulty passing urine, and she was getting intermittent catheterization, and now she is able to pass the urine. PAST MEDICAL HISTORY: Colon cancer, adenocarcinoma, carcinomatosis, history of migraine headache, history of chronic kidney disease with some hydronephrosis. PAST SURGICAL HISTORY: Colectomy, cholecystectomy, appendicectomy, laparotomy, hysterectomy, ureteral catheter placement with cystoscopy. REVIEW OF SYSTEMS: The patient has generalized weakness, feeling tired, has decreased appetite, nausea, vomiting going on for the last 2-3 weeks, left colostomy with liquid fluid coming into it. Denies any dysuria, hematuria, but has occasional difficulty in passing the urine. Denies taking any nonsteroidal anti-inflammatory drugs. SOCIAL HISTORY: There is no history of smoking. Occasionally, has alcoholic beverages. FAMILY HISTORY: Noncontributory. ALLERGIES: SHE HAS NO KNOWN DRUG ALLERGIES. MEDICATIONS: Currently, she is on the following medications: [place] as needed, albuterol as needed, Dulcolax as needed, insulin aspart sliding scale, morphine as needed, Zofran as needed, Protonix 40 mg IV daily, Mis-Colace 1 tablet b.i.d., Senokot 17.2 mg every 12 hours. IV fluid she is getting half normal saline at 84/hour. PHYSICAL EXAMINATION: GENERAL: The patient is awake, alert. She is not in acute distress. VITAL SIGNS: Blood pressure is 96/50. Her blood pressure systolic has been in the 80s and 90s, most of the time. Temperature is 98.4, oxygen saturation 98% on room air. HEENT: Pupils are constricted. Nonicteric sclerae. Conjunctivae pale. NECK: Supple. JVD is not elevated. LUNGS: The patient has bilateral decreased air entry with occasional wheezing. HEART: S1, S2. Regular rate and rhythm. ABDOMEN: Soft and lax. There is a colostomy in place. No tenderness. Bowel sounds positive. EXTREMITIES: She has no pedal edema. INVESTIGATIONS: WBC count is 12.7, hemoglobin 10.1, platelet count of 307. Neutrophils 57.5. Sodium 126, potassium 4.7, chloride 82, bicarbonate 31.2, BUN 156, creatinine 6.9. Osmolality is 317. Uric acid is 14.5. Phosphorus is 8.1, calcium is 8.8. AST is 20, ALT is 30, alkaline phosphatase 202. Total protein 7.1 with albumin of 2.9. TSH is 2.5. Cortisol 34.1. Urinalysis showing cloudy urine with large leukocyte esterase, WBC 126. INR 1.2. IMAGING STUDIES: The patient had CT scan of the abdomen and pelvis done, which shows that she has increasing size of the mass adjacent to the gallbladder, which measures now at 4.2 x 3.5 cm. Large pelvic mass is no longer visualized. There is a small mass-like structure noted in the presacral region, post-partial colectomy, colostomy in the right quadrant. Kidneys are normal in size and shape with no evidence of hydronephrosis. Chest x-ray was done, which shows no acute lung disease. ASSESSMENT: 1. Acute kidney injury. 2. Hyponatremia. 3. Hyperkalemia. 4. Severe dehydration. 5. History of colon cancer. 6. Hypotension. 7. Urinary tract infection. The patient has very high BUN and creatinine at presentation. BUN was much higher, most likely has an element of dehydration with possibility of acute tubular necrosis. Also, she has hyponatremia, which is probably contributed by decreased oral intake. PLAN: I will check the urine sodium and osmolality. The CT scan did not show any obstruction. Continue the IV fluid. I will put her on ceftriaxone, awaiting the urine culture. I will also change the IV fluid to normal saline, instead of half normal saline, as it will help improve the sodium better. Thank you for the consultation. I will follow the patient while she is in the hospital. MD VIRGILIO Chong/dianelys , 10:25 AM , 10:39 AM
--- NOTE | 2018-04-22 13:13 | ECG ---
Date Performed: 04/21/2018 Time Performed: 18:48:22 PTAGE: 67 years EKG: Sinus rhythm POSSIBLE LEFT ATRIAL ENLARGEMENT MINIMAL ST DEPRESSION BORDERLINE ECG NO PREVIOUS TRACING DOCTOR: Luis Alberto Quigley Interpretating Date/Time 04/22/2018 13:11:14
[2018-04-22] MEDS: Heparin - SQ 10,000 UNITS/ML Vial SQ SCH ×2 (13:18→21:39)
--- NOTE | 2018-04-22 14:01 | MB ---
cc: Maycol Chandler MD DATE: 04/22/2018 ATTENDING PHYSICIAN: Trista Sharma MD REASON FOR CONSULTATION: Oncology consult to render opinion regarding a patient with metastatic colon cancer, admitted with renal failure and weakness. HISTORY OF PRESENT ILLNESS: The patient is a very pleasant 67-year-old female with history of metastatic colon cancer who recently underwent extensive abdominal debulking surgery, who presented to the hospital with complaint of increased weakness and not able to eat. She was first diagnosed with stage III colon cancer in 2016 and had a resection. She completed 6 months of adjuvant FOLFOX chemotherapy in 05/2017. Unfortunately, earlier this year, she was found to have an abdominal wall mass and pelvic mass. Biopsy showed mucinous adenocarcinoma. There was a question if she had developed a [employer]PER[employer] cancer. She saw Dr. Becerril and she underwent an exploratory laparotomy in February with resection of the pelvic mass abdominal wall mass, sigmoid and transverse colon, as well as a part of the small bowel. Ileostomy was created. She was then sent to [facility]; she was just discharged 2 weeks ago. She did not do well since she got home. She barely eats or drinks any fluid. She lost about 45 pounds since surgery. She became very weak and could hardly walk She has decreased urine output. She has soreness around the abdominal surgical site. She also developed increased shortness of breath. She has nausea and vomiting. She denies any diarrhea. She has low back pain. She has insomnia. When she presented to the hospital, she was noted to have acute renal failure and severe hyponatremia. She was admitted to the intensive care unit for further management. She is feeling better this morning, since the hydration. PAST MEDICAL HISTORY: 1. Metastatic colon cancer as above. 2. Migraine headache. 3. History of hydronephrosis. 4. Bunion. PAST SURGICAL HISTORY: 1. Port placement. 2. Resection of colon in 2017. 3. Recent exploratory laparotomy with resection of pelvic mass, abdominal wall mass, sigmoid and transverse colon, small bowel and creation of ileostomy. 4. Appendectomy. 5. Cholecystectomy. 6. Ureteral stent placement. FAMILY HISTORY: Father had cancer. She has a son and daughter, both are healthy. She has a brother still living. SOCIAL HISTORY: No tobacco. She denies significant alcohol use. ALLERGIES: NO KNOWN DRUG ALLERGIES. MEDICATIONS: 1. Ceftriaxone. 2. Protonix. 3. Mis-Colace. REVIEW OF SYSTEMS: CONSTITUTIONAL: As above. EYES: Negative. ENT: Negative. CARDIOVASCULAR: As above. RESPIRATORY: As above. GASTROINTESTINAL: As above. GENITOURINARY: As above. MUSCULOSKELETAL: As above. ENDOCRINE: Negative. HEMATOLOGIC: Negative. PSYCHIATRIC: Negative. NEUROLOGIC: Negative. DERMATOLOGIC: Negative. PHYSICAL EXAMINATION: VITAL SIGNS: Temperature 98.4, blood pressure 96/50. GENERAL: She is alert, oriented x 3. She is cachectic. She is in no acute distress. HEENT: Atraumatic, normocephalic. Pupils are equal, round, reactive to light. Oropharynx dry mucosa. No lesion. NECK: Without thyromegaly. No palpable mass. LYMPHATIC: No palpable clavicular or axillary nodes. HEART: Regular S1, S2. No murmur. LUNGS: Clear to auscultation anteriorly. ABDOMEN: Soft. Soreness around surgical site. EXTREMITIES: No cyanosis, clubbing or edema. SKIN: Decreased skin turgor. NEUROLOGIC: Nonfocal. LABORATORY DATA REVIEW: Blood work drawn during this hospital admission, WBC 12.7, hemoglobin 10.1, platelet count 307, creatinine 6.93, alkaline phosphatase 202, AST 220, ALT 30. ASSESSMENT: 1. Metastatic colon cancer. She is currently, under the care of Dr. Walsh. She was first diagnosed with stage III colon cancer and had resection in 2016. She completed 6 months of FOLFOX adjuvant chemotherapy in 05/2017. Unfortunately, earlier this year, she was found to have pelvic mass and abdominal wall mass. Biopsy showed mucinous adenocarcinoma. There was a question that she may have a secondary [employer] neoplasm. She underwent exploratory laparotomy done by Dr. Becerril and Dr. Dalton on 03/14/2018. She had resection of the pelvic mass and abdominal wall mass. She also had resection of sigmoid and transverse colon with part of the small bowel. Ileostomy was created. The pathology from the mass showed adenocarcinoma similar to her previous colon cancer. She was supposed to follow up with Dr. Walsh next Tuesday to discuss further treatment. On presentation, she had CT abdomen and pelvis, which now showed a mass around the gallbladder area measuring 4.2 cm. There was also a small mass-like structure in the presacral region that is concerning for metastatic colon cancer. At this point, she is very weak and has poor performance status. I do not think she could tolerate chemotherapy at this time. I think she will also need a PET scan as an outpatient for further evaluation. Dr. Walsh will be back on Tuesday and he can take over the care. 2. Dehydration. She hardly ate or drank any fluid for almost 2 weeks. She came in with renal failure. She is currently on hydration and is feeling better. 3. Acute renal failure, likely due to dehydration. Nephrology is following. 4. History of hydronephrosis, status post ureteral stent placement. RECOMMENDATION: 1. 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 2. Deep venous thrombosis prophylaxis with heparin. 3. Review CT findings with the patient. 4. We will continue to follow with you. Thank you, Dr. Sharma, for asking me to see this patient. MD TIAGO Younger/chris , 11:40 AM , 11:58 AM [place]IL[place]
[2018-04-22] MEDS: Morphine Sulfate Inj 2 MG/ML Vial IV.PUSH PRN (15:14)
[2018-04-22 15:56] LABS: Albumin 2.2 g/dL (3.4-5.0); Calcium 7.4 mg/dL (8.5-10.1); Carbon Dioxide 24.5 meq/L (21.0-32.0); Potassium 3.6 meq/L (3.5-5.1); Total Protein 5.7 g/dL (6.4-8.2)
--- NOTE | 2018-04-22 21:26 | P.PN ---
Subjective Interval history: NOT SEEN Physical Exam Vital signs: Vital Signs 04/21/18 21:48 04/21/18 21:59 04/21/18 22:00 Temperature 98.3 F Pulse Rate 73 86 79 Respiratory Rate 18 19 20 Blood Pressure 97/57 L 102/52 L Pulse Oximetry 98 99 100 04/22/18 00:00 04/22/18 02:00 04/22/18 04:00 Temperature 97.7 F 98.2 F Pulse Rate 77 74 69 Respiratory Rate 13 14 Blood Pressure 101/57 L 99/54 L Pulse Oximetry 99 98 04/22/18 06:00 04/22/18 07:00 04/22/18 08:00 Temperature 98.4 F Pulse Rate 73 79 63 Respiratory Rate 16 19 Blood Pressure 88/51 L 96/50 L Pulse Oximetry 96 98 04/22/18 09:00 04/22/18 10:00 04/22/18 11:00 Temperature Pulse Rate 78 66 65 Respiratory Rate 19 12 18 Blood Pressure 101/56 L 98/53 L 108/57 L Pulse Oximetry 100 99 99 04/22/18 11:22 04/22/18 12:00 04/22/18 12:01 Temperature Pulse Rate 79 95 H Respiratory Rate 14 Blood Pressure 108/55 L Pulse Oximetry 04/22/18 13:00 04/22/18 13:24 04/22/18 14:00 Temperature Pulse Rate 77 68 77 Respiratory Rate 20 26 H Blood Pressure 100/54 L 106/62 Pulse Oximetry 100 100 04/22/18 15:00 04/22/18 16:00 04/22/18 16:02 Temperature Pulse Rate 70 62 59 L Respiratory Rate 24 23 Blood Pressure 90/53 L 83/50 L Pulse Oximetry 97 100 100 04/22/18 17:28 04/22/18 20:00 Temperature Pulse Rate 66 110 H Respiratory Rate Blood Pressure Pulse Oximetry Intake & Output 04/22/18 04/22/18 04/23/18 06:59 18:59 06:59 Intake Total 2409 / 2409 2536 / 2536 1000 / 1000 Output Total 795 / 795 1550 / 1550 Balance 1614 / 1614 986 / 986 1000 / 1000 Weight 49.5 kg Intake: IV 2409 / 2409 2536 / 2536 1000 / 1000 NS Inj 1,000 ML @ 150 mls/hr IV 799 / 799 1000 / 1000 .CONT .[id number] [facility] Rx#:[id number] 1/2 Normal Saline Inj 1,000 ML 336 / 336 @ 84 mls/hr IV.CONT .[id number] [facility] Rx#:[id number] Calcium Gluconate Inj 1 GM In 110 / 110 D5W Inj 100 ML @ 110 mls/hr IV. SIG ONCE ONE Rx#:[id number] Magnesium Sulfate 1 gm/D5W 100 100 / 100 ml Premix 100 ML @ 100 mls/hr IV.SIG ONCE ONE Rx#:[id number] NS Inj 2,000 ML @ Wide Open IV. 1000 / 1000 2000 / 2000 SIG BOLUS ONE Rx#:[id number] 1/2 Normal Saline Inj 500 ML @ 500 / 500 Wide Open IV.SIG BOLUS ONE Rx#: [id number] Rocephin Inj 1,000 MG In NS Inj 100 / 100 100 ML @ 200 mls/hr IV.SIG Q24H [facility] Rx#:[id number] Output: Urine 225 / 225 950 / 950 Urine Amount (Catheter) 335 / 335 Straight 335 / 335 Stool Amount (Stoma) 235 / 235 600 / 600 Pre-Hospital: Right Lower 235 / 235 600 / 600 Abdomen Other: # Voids 2 # Incontinent Voids 1 Date of Last Bowel Movement 04/22/18 04/22/18 04/22/18 Weight On Admission 49 kg Narrative: GEN: Lying in bed, no acute distress RESP: CTA bilaterally. Absent: accessory muscle use CVS: RRR, S1, S2. Absent: murmur GI: soft, normoactive bowel sounds, tenderness, ostomy. Absent: distended, mass EXT:cyanosis, clubbing, edema SKIN: Dry cyanosis NEURO: alert, oriented X3, CN II-XII intact. No sensory deficit, motor deficit - Urinary Catheter Management Straight Cath placed during this visit: no Reason for continuing: Not indwelling catheter Results - Labs CBC & Chem 7: 04/22/18 03:30 04/22/18 15:00 Laboratory Results - last 24 hr 04/21/18 04/21/18 04/21/18 22:00 23:11 23:30 WBC RBC Hgb Hct MCV MCH MCHC RDW Plt Count MPV Prelim Diff (Auto) Neut % (Auto) Lymph % (Auto) [place] % (Auto) Eos % (Auto) Baso % (Auto) Neut # (Auto) Lymph # (Auto) [place] # (Auto) Eos # (Auto) Baso # (Auto) WBC Differential Diff Scan Differential Comment Platelet Estimate Platelet Morphology Ovalocytes PT INR APTT Sodium Potassium Chloride Carbon Dioxide Anion Gap BUN Creatinine Estimated GFR POC Glucose 106 Random Glucose Osmolality Lactic Acid 0.9 Uric Acid Calcium Calcium Adj for Albumin Phosphorus Magnesium Total Bilirubin AST ALT Alkaline Phosphatase Total Creatine Kinase Troponin I Total Protein Albumin Lipase TSH Cortisol Urine Color Urine Clarity Urine pH Ur Specific [place] Urine Protein Urine Glucose (UA) Urine Ketones Urine Occult Blood Urine Nitrate Urine Bilirubin Urine Urobilinogen Ur Leukocyte Esterase Urine RBC Urine WBC Urine WBC Clumps Ur Squamous Epith Cells Urine Bacteria Hyaline Casts Urine Mucus Micro UA Comment Ur Microscopic Review Urine Culture Comments Urine Osmolality Ur Random Creatinine Ur Random Sodium Nasal Screen MRSA (PCR) Not detected 04/21/18 04/21/18 04/21/18 23:30 23:30 23:35 WBC RBC Hgb Hct MCV MCH MCHC RDW Plt Count MPV Prelim Diff (Auto) Neut % (Auto) Lymph % (Auto) [place] % (Auto) Eos % (Auto) Baso % (Auto) Neut # (Auto) Lymph # (Auto) [place] # (Auto) Eos # (Auto) Baso # (Auto) WBC Differential Diff Scan Differential Comment Platelet Estimate Platelet Morphology Ovalocytes PT INR APTT Sodium 123 L* Potassium 4.4 D Chloride 79 L D Carbon Dioxide 30.9 Anion Gap 13 BUN 147 H Creatinine 7.01 H Estimated GFR 6 L POC Glucose Random Glucose 79 Osmolality Lactic Acid Uric Acid Calcium 9.2 D Calcium Adj for Albumin Phosphorus Magnesium Total Bilirubin AST ALT Alkaline Phosphatase Total Creatine Kinase 31 Troponin I Less than 0.02 L Total Protein Albumin Lipase 202 TSH Cortisol 34.1 Urine Color Yellow Urine Clarity Cloudy H Urine pH 6.0 Ur Specific [place] 1.013 Urine Protein 100 H Urine Glucose (UA) Negative Urine Ketones Negative Urine Occult Blood Negative Urine Nitrate Negative Urine Bilirubin Negative Urine Urobilinogen Less than 2 Ur Leukocyte Esterase Large H Urine RBC 2 Urine WBC 126 H Urine WBC Clumps Many H Ur Squamous Epith Cells 1 Urine Bacteria Occasional H Hyaline Casts 5 Urine Mucus Few H Micro UA Comment Culture indicated Ur Microscopic Review Not Reportable Urine Culture Comments Culture indicated Urine Osmolality Ur Random Creatinine Ur Random Sodium Nasal Screen MRSA (PCR) 04/21/18 04/21/18 04/22/18 23:35 23:35 03:30 WBC 12.7 H RBC 3.66 L Hgb 10.1 L D Hct 29.9 L MCV 81.8 MCH 27.6 MCHC 33.7 RDW 20.9 H Plt Count 307 MPV 6.5 L Prelim Diff (Auto) Slide review pending Neut % (Auto) 57.5 Lymph % (Auto) 30.3 [place] % (Auto) 11.5 H Eos % (Auto) 0.4 Baso % (Auto) 0.3 Neut # (Auto) 7.3 Lymph # (Auto) 3.9 [place] # (Auto) 1.5 H Eos # (Auto) 0.1 Baso # (Auto) 0.0 WBC Differential . Diff Scan Auto diff confirmed Differential Comment . Platelet Estimate Normal Platelet Morphology Normal Ovalocytes 1+ H PT INR APTT Sodium Potassium Chloride Carbon Dioxide Anion Gap BUN Creatinine Estimated GFR POC Glucose Random Glucose Osmolality Lactic Acid Uric Acid Calcium Calcium Adj for Albumin Phosphorus Magnesium Total Bilirubin AST ALT Alkaline Phosphatase Total Creatine Kinase Troponin I Total Protein Albumin Lipase TSH Cortisol Urine Color Urine Clarity Urine pH Ur Specific [place] Urine Protein Urine Glucose (UA) Urine Ketones Urine Occult Blood Urine Nitrate Urine Bilirubin Urine Urobilinogen Ur Leukocyte Esterase Urine RBC Urine WBC Urine WBC Clumps Ur Squamous Epith Cells Urine Bacteria Hyaline Casts Urine Mucus Micro UA Comment Ur Microscopic Review Urine Culture Comments Urine Osmolality 385 Ur Random Creatinine 94 Ur Random Sodium 10 Nasal Screen MRSA (PCR) 04/22/18 04/22/18 04/22/18 03:30 03:30 03:30 WBC RBC Hgb Hct MCV MCH MCHC RDW Plt Count MPV Prelim Diff (Auto) Neut % (Auto) Lymph % (Auto) [place] % (Auto) Eos % (Auto) Baso % (Auto) Neut # (Auto) Lymph # (Auto) [place] # (Auto) Eos # (Auto) Baso # (Auto) WBC Differential Diff Scan Differential Comment Platelet Estimate Platelet Morphology Ovalocytes PT 11.8 H INR 1.2 APTT 27.1 Sodium 126 L Potassium 4.7 Chloride 82 L Carbon Dioxide 31.2 Anion Gap 13 BUN 156 H Creatinine 6.93 H Estimated GFR 6 L POC Glucose Random Glucose 84 Osmolality 317 H Lactic Acid 0.9 Uric Acid 14.5 H Calcium 8.8 Calcium Adj for Albumin Phosphorus 8.1 H Magnesium 1.5 Total Bilirubin 0.6 AST 20 ALT 30 Alkaline Phosphatase 202 H Total Creatine Kinase Troponin I Total Protein 7.1 D Albumin 2.9 L D Lipase TSH 2.550 Cortisol Urine Color Urine Clarity Urine pH Ur Specific [place] Urine Protein Urine Glucose (UA) Urine Ketones Urine Occult Blood Urine Nitrate Urine Bilirubin Urine Urobilinogen Ur Leukocyte Esterase Urine RBC Urine WBC Urine WBC Clumps Ur Squamous Epith Cells Urine Bacteria Hyaline Casts Urine Mucus Micro UA Comment Ur Microscopic Review Urine Culture Comments Urine Osmolality Ur Random Creatinine Ur Random Sodium Nasal Screen MRSA (PCR) 04/22/18 04/22/18 04/22/18 05:30 11:07 11:12 WBC RBC Hgb Hct MCV MCH MCHC RDW Plt Count MPV Prelim Diff (Auto) Neut % (Auto) Lymph % (Auto) [place] % (Auto) Eos % (Auto) Baso % (Auto) Neut # (Auto) Lymph # (Auto) [place] # (Auto) Eos # (Auto) Baso # (Auto) WBC Differential Diff Scan Differential Comment Platelet Estimate Platelet Morphology Ovalocytes PT INR APTT Sodium 123 L* Potassium 3.9 D Chloride 84 L Carbon Dioxide 29.1 Anion Gap 10 BUN 137 H Creatinine 6.25 H Estimated GFR 7 L POC Glucose 114 H 83 Random Glucose 81 Osmolality Lactic Acid Uric Acid Calcium 8.4 L Calcium Adj for Albumin Phosphorus Magnesium Total Bilirubin AST ALT Alkaline Phosphatase Total Creatine Kinase Troponin I Total Protein Albumin Lipase TSH Cortisol Urine Color Urine Clarity Urine pH Ur Specific [place] Urine Protein Urine Glucose (UA) Urine Ketones Urine Occult Blood Urine Nitrate Urine Bilirubin Urine Urobilinogen Ur Leukocyte Esterase Urine RBC Urine WBC Urine WBC Clumps Ur Squamous Epith Cells Urine Bacteria Hyaline Casts Urine Mucus Micro UA Comment Ur Microscopic Review Urine Culture Comments Urine Osmolality Ur Random Creatinine Ur Random Sodium Nasal Screen MRSA (PCR) 04/22/18 04/22/18 04/22/18 15:00 15:05 17:00 WBC RBC Hgb Hct MCV MCH MCHC RDW Plt Count MPV Prelim Diff (Auto) Neut % (Auto) Lymph % (Auto) [place] % (Auto) Eos % (Auto) Baso % (Auto) Neut # (Auto) Lymph # (Auto) [place] # (Auto) Eos # (Auto) Baso # (Auto) WBC Differential Diff Scan Differential Comment Platelet Estimate Platelet Morphology Ovalocytes PT INR APTT Sodium 132 L Potassium 3.6 Chloride 94 L D Carbon Dioxide 24.5 Anion Gap 14 BUN 126 H Creatinine 5.53 H Estimated GFR 8 L POC Glucose 169 H Random Glucose 150 H Osmolality Lactic Acid Uric Acid Calcium 7.4 L* D Calcium Adj for Albumin 8.2 L Phosphorus Magnesium Total Bilirubin 0.3 AST 17 ALT 25 Alkaline Phosphatase 152 H Total Creatine Kinase Troponin I Total Protein 5.7 L D Albumin 2.2 L D Lipase TSH Cortisol Urine Color Urine Clarity Urine pH Ur Specific [place] Urine Protein Urine Glucose (UA) Urine Ketones Urine Occult Blood Urine Nitrate Urine Bilirubin Urine Urobilinogen Ur Leukocyte Esterase Urine RBC Urine WBC Urine WBC Clumps Ur Squamous Epith Cells Urine Bacteria Hyaline Casts Urine Mucus Micro UA Comment Ur Microscopic Review Urine Culture Comments Urine Osmolality 401 Ur Random Creatinine Ur Random Sodium Nasal Screen MRSA (PCR) 04/22/18 17:00 WBC RBC Hgb Hct MCV MCH MCHC RDW Plt Count MPV Prelim Diff (Auto) Neut % (Auto) Lymph % (Auto) [place] % (Auto) Eos % (Auto) Baso % (Auto) Neut # (Auto) Lymph # (Auto) [place] # (Auto) Eos # (Auto) Baso # (Auto) WBC Differential Diff Scan Differential Comment Platelet Estimate Platelet Morphology Ovalocytes PT INR APTT Sodium Potassium Chloride Carbon Dioxide Anion Gap BUN Creatinine Estimated GFR POC Glucose Random Glucose Osmolality Lactic Acid Uric Acid Calcium Calcium Adj for Albumin Phosphorus Magnesium Total Bilirubin AST ALT Alkaline Phosphatase Total Creatine Kinase Troponin I Total Protein Albumin Lipase TSH Cortisol Urine Color Urine Clarity Urine pH Ur Specific [place] Urine Protein Urine Glucose (UA) Urine Ketones Urine Occult Blood Urine Nitrate Urine Bilirubin Urine Urobilinogen Ur Leukocyte Esterase Urine RBC Urine WBC Urine WBC Clumps Ur Squamous Epith Cells Urine Bacteria Hyaline Casts Urine Mucus Micro UA Comment Ur Microscopic Review Urine Culture Comments Urine Osmolality Ur Random Creatinine Ur Random Sodium 17 Nasal Screen MRSA (PCR) Microbiology 04/21/18 23:35 Clean Catch Urine Urine Culture - Preliminary Group D Enterococcus - Imaging ITS Impressions Chest X-Ray 04/21/18 18:19 CONCLUSION: No acute intrathoracic disease. Stable examination. Abdomen/Pelvis CT 04/21/18 20:10 CONCLUSION: 1. Interval increase in the size of the mass previously noted adjacent to the gallbladder which now measures up to 4.2 x 3.5 cm in diameter. 2. The previously noted large pelvic mass is no longer visualized. There is a smaller masslike structure now noted in the presacral region. 3. Interval postsurgical changes status post partial colectomy. The bowel loops are poorly visualized and evaluated due to lack of intravenous and oral contrast. Mesenteric masses may be obscured. 4. Colectomy in the right lower quadrant. Assessment and Plan - Plan Neuro/Psych: Acetaminophen 650 mg by mouth every 6 hours as needed fever Hydrocodone/acetaminophen 5/325 -1 tablet every 4 hours as needed pain 1 through 5 Morphine sulfate 2 mg IV every 2 hours as needed CV: Currently not requiring vasopressors and/or antihypertensives EKG revealed no peak T waves. Currently normal saline at 100 cc an hour, increase 150 ml per hour. NS 2L bolus Resp: Nasal cannula to maintain saturations greater than or equal to 92% Incentive spirometry while awake As needed albuterol aerosols every 2 hours as needed GI: Severe protein calorie malnutrition Recent exploratory laparotomy with extensive removal of intraperitoneal tumor including resection of large pelvic mass from right ovary, hysterectomy, bilateral salpingo-fragment, multifocal intense resection with primary anastomosis, intraperitoneal tumor cytoreduction and diverting ileostomy. Dr. Dalton. Liquid diet advance per CRS pantoprazole for GI prophylaxis Docusate sodium/senna 1 tablet twice daily for bowel regimen CT abdomen/pelvis-interval increase in the size of the mass previously noted adjacent to the gallbladder which now measures up to 4.2 x 3.5 cm in diameter. The previously noted large pelvic mass is no longer visualized. There is a smaller masslike structure now noted in the presacral region. CRS and Onc following. Poor performance status at this time. Op PET : [place] catheter for accurate I's and O's in a critically ill patient Endo: Sliding scale insulin Accu-Cheks to maintain euglycemia. TSH Renal: Acute kidney injury Renal consulted. 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 Follow trends. No indication for transfusion of blood products Coags within normal limits CT abdomen/pelvis-as above Dr. Walsh consulted ID: Abnormal UA Ct Rocephin monitor cx FEN: Hyponatremia Hyperkalemia Hypochloremia Hyponatremia is most likely from sev dehydration Received D50/insulin/bicarbonate and calcium gluconate and Kayexalate in ED. Now potassium normalized Received 1 L normal saline in ED. 2L bolus now MSK: PT evaluate and treat Access -Okay to utilize left Port-A-Cath. Peripheral IVs. Prophylaxis -GI -pantoprazole -DVT -SCD/heparin subcu
[2018-04-23] MEDS: Sod Chloride 0.9% Inj 1,000 ML IV.CONT SCH ×4 (01:15→21:29)
[2018-04-23] MEDS: Morphine Sulfate Inj 2 MG/ML Vial IV.PUSH PRN ×3 (01:44→06:32)
[2018-04-23] MEDS: Chlorhexidine Gluconate 2% 1 Pack (2 Cloths) TOPICAL SCH (05:06)
[2018-04-23 05:20] LABS: Baso % (Auto) 0.3 % (0.0-2.0); Eos % (Auto) 0.3 % (0.0-4.0); Hematocrit 22.8 % (35.0-46.0); Hemoglobin 7.7 gm/dL (11.6-15.3); Lymph # (Auto) 1.6 th/mm3 (1.0-4.8); Lymph % (Auto) 22.3 % (9.0-44.0); Mean Corpuscular HGB Conc 33.9 % (32.0-36.0); Mean Corpuscular Hemoglobin 28.6 pg (27.0-34.0); Mean Corpuscular Volume 84.5 fL (80.0-100.0); Mean Platelet Volume 6.4 fL (7.0-11.0); Mono # (Auto) 0.8 th/mm3 (0.0-0.9); Mono % (Auto) 10.7 % (0.0-8.0); Neut # (Auto) 4.9 th/mm3 (1.8-7.7); Neut % (Auto) 66.4 % (16.0-70.0); Platelet Count 207 th/mm3 (150-450); Red Blood Count 2.71 mil/mm3 (4.00-5.30); Red Cell Distribution Width 20.4 % (11.6-17.2); White Blood Count 7.4 th/mm3 (4.0-11.0)
[2018-04-23 05:46] LABS: Calcium 6.9 mg/dL (8.5-10.1); Carbon Dioxide 24.7 meq/L (21.0-32.0); Magnesium 1.4 mg/dL (1.5-2.5); Potassium 3.2 meq/L (3.5-5.1)
[2018-04-23 06:07] LABS: Albumin 2.1 g/dL (3.4-5.0); Calcium-Albumin Corrected 8.4 mg/dL (8.5-10.1)
[2018-04-23] MEDS ORDERED: Potassium Chloride 25 MEQ Effervescent Tablet PO ONE (06:54)
[2018-04-23] MEDS ORDERED: Mag Sulf 1 gm/100 ml Premix 100 ML IV.SIG ONE ×2 (06:54→08:26)
[2018-04-23] MEDS ORDERED: Potassium Bicarbonate 25 MEQ Effervescent Tablet PO ONE ×2 (08:26→09:03)
[2018-04-23] MEDS: Heparin - SQ 10,000 UNITS/ML Vial SQ SCH ×2 (08:28→21:21)
[2018-04-23] MEDS: Senna/Docusate Sodium 8.6/50 MG Tablet PO SCH ×2 (08:28→21:24)
[2018-04-23] MEDS: Pantoprazole Inj 40 MG Vial IV.PUSH SCH (08:28)
--- NOTE | 2018-04-23 08:31 | P.PN ---
Subjective Interval history: Consulted by critical care medicine for transfer of care and medical management. Chart reviewed. Follow-up acute kidney injury creatinine improving on IV hydration. Increase ileostomy output with liquid diet. BP borderline low. Discussed with nephrology and CRS Physical Exam Vital signs: Vital Signs 04/22/18 09:00 04/22/18 10:00 04/22/18 11:00 Temperature Pulse Rate 78 66 65 Respiratory Rate 19 12 18 Blood Pressure 101/56 L 98/53 L 108/57 L Pulse Oximetry 100 99 99 04/22/18 11:22 04/22/18 12:00 04/22/18 12:01 Temperature Pulse Rate 79 95 H Respiratory Rate 14 Blood Pressure 108/55 L Pulse Oximetry 04/22/18 13:00 04/22/18 13:24 04/22/18 14:00 Temperature Pulse Rate 77 68 77 Respiratory Rate 20 26 H Blood Pressure 100/54 L 106/62 Pulse Oximetry 100 100 04/22/18 15:00 04/22/18 16:00 04/22/18 16:02 Temperature Pulse Rate 70 62 59 L Respiratory Rate 24 23 Blood Pressure 90/53 L 83/50 L Pulse Oximetry 97 100 100 04/22/18 17:28 04/22/18 20:00 04/22/18 20:30 Temperature 98.3 F Pulse Rate 66 110 H Respiratory Rate 22 Blood Pressure 100/55 L Pulse Oximetry 100 100 04/22/18 22:00 04/23/18 00:00 04/23/18 02:00 Temperature 98.3 F Pulse Rate 64 72 69 Respiratory Rate 27 H Blood Pressure 135/85 Pulse Oximetry 95 04/23/18 04:00 04/23/18 06:00 Temperature 98.6 F Pulse Rate 73 71 Respiratory Rate 24 Blood Pressure 92/52 L Pulse Oximetry 100 Intake & Output 04/22/18 04/23/18 04/23/18 18:59 06:59 18:59 Intake Total 2536 / 2536 2500 / 2500 Output Total 1550 / 1550 1250 / 1250 Balance 986 / 986 1250 / 1250 Weight 53 kg Intake: IV 2536 / 2536 1999 NS Inj 1,000 ML @ 150 mls/hr IV 1999 .CONT .Q6H40M [facility] Rx#:[id number] 05/24 Normal Saline Inj 1,000 ML 336 / 336 @ 84 mls/hr IV.CONT .[id number] [facility] Rx#:[id number] Magnesium Sulfate 1 gm/D5W 100 100 / 100 ml Premix 100 ML @ 100 mls/hr IV.SIG ONCE ONE Rx#:[id number] NS Inj 2,000 ML @ Wide Open IV. 1999 / 1999 SIG BOLUS ONE Rx#:[id number] Rocephin Inj 1,000 MG In NS Inj 100 / 100 100 ML @ 200 mls/hr IV.SIG Q24H [facility] Rx#:[id number] Oral 500 / 500 Output: Urine 950 / 950 1100 / 1100 Stool Amount (Stoma) 600 / 600 150 / 150 Pre-Hospital: Right Lower 600 / 600 150 / 150 Abdomen Other: # Voids 2 6 # Incontinent Voids 0 Date of Last Bowel Movement 04/22/18 04/22/18 Narrative: GEN: Lying in bed, no acute distress RESP: CTA bilaterally. Absent: accessory muscle use CVS: RRR, S1, S2. Absent: murmur GI: soft, normoactive bowel sounds, tenderness, ostomy. Absent: distended, mass EXT:cyanosis, clubbing, edema SKIN: Dry no cyanosis NEURO: alert, oriented X3, CN II-XII intact. No sensory deficit, motor deficit - Urinary Catheter Management Straight Cath placed during this visit: no Reason for continuing: Not indwelling catheter Results - Labs CBC & Chem 7: 04/23/18 08:14 04/23/18 04:00 Laboratory Results - last 24 hr 04/21/18 04/22/18 04/22/18 23:35 11:07 11:12 WBC RBC Hgb Hct MCV MCH MCHC RDW Plt Count MPV Neut % (Auto) Lymph % (Auto) [place] % (Auto) Eos % (Auto) Baso % (Auto) Neut # (Auto) Lymph # (Auto) [place] # (Auto) Eos # (Auto) Baso # (Auto) WBC Differential Differential Comment Sodium 123 L* Potassium 3.9 D Chloride 84 L Carbon Dioxide 29.1 Anion Gap 10 BUN 137 H Creatinine 6.25 H Estimated GFR 7 L POC Glucose 83 Random Glucose 81 Calcium 8.4 L Calcium Adj for Albumin Magnesium Total Bilirubin AST ALT Alkaline Phosphatase Total Protein Albumin Urine Color Yellow Urine Clarity Cloudy H Urine pH 6.0 Ur Specific [place] 1.013 Urine Protein 100 H Urine Glucose (UA) Negative Urine Ketones Negative Urine Occult Blood Negative Urine Nitrate Negative Urine Bilirubin Negative Urine Urobilinogen Less than 2 Ur Leukocyte Esterase Large H Urine RBC 2 Urine WBC 126 H Urine WBC Clumps Many H Ur Squamous Epith Cells 1 Urine Bacteria Occasional H Hyaline Casts 5 Urine Mucus Few H Micro UA Comment Culture indicated Urine Culture Comments Culture indicated Urine Osmolality Ur Random Sodium 04/22/18 04/22/18 04/22/18 15:00 15:05 17:00 WBC RBC Hgb Hct MCV MCH MCHC RDW Plt Count MPV Neut % (Auto) Lymph % (Auto) [place] % (Auto) Eos % (Auto) Baso % (Auto) Neut # (Auto) Lymph # (Auto) [place] # (Auto) Eos # (Auto) Baso # (Auto) WBC Differential Differential Comment Sodium 132 L Potassium 3.6 Chloride 94 L D Carbon Dioxide 24.5 Anion Gap 14 BUN 126 H Creatinine 5.53 H Estimated GFR 8 L POC Glucose 169 H Random Glucose 150 H Calcium 7.4 L* D Calcium Adj for Albumin 8.2 L Magnesium Total Bilirubin 0.3 AST 17 ALT 25 Alkaline Phosphatase 152 H Total Protein 5.7 L D Albumin 2.2 L D Urine Color Urine Clarity Urine pH Ur Specific [place] Urine Protein Urine Glucose (UA) Urine Ketones Urine Occult Blood Urine Nitrate Urine Bilirubin Urine Urobilinogen Ur Leukocyte Esterase Urine RBC Urine WBC Urine WBC Clumps Ur Squamous Epith Cells Urine Bacteria Hyaline Casts Urine Mucus Micro UA Comment Urine Culture Comments Urine Osmolality 401 Ur Random Sodium 04/22/18 04/23/18 04/23/18 17:00 00:00 04:00 WBC 7.4 RBC 2.71 L Hgb 7.7 L D Hct 22.8 L MCV 84.5 MCH 28.6 MCHC 33.9 RDW 20.4 H Plt Count 207 D MPV 6.4 L Neut % (Auto) 66.4 Lymph % (Auto) 22.3 [place] % (Auto) 10.7 H Eos % (Auto) 0.3 Baso % (Auto) 0.3 Neut # (Auto) 4.9 Lymph # (Auto) 1.6 [place] # (Auto) 0.8 Eos # (Auto) 0.0 Baso # (Auto) 0.0 WBC Differential . Differential Comment Auto diff final Sodium Potassium Chloride Carbon Dioxide Anion Gap BUN Creatinine Estimated GFR POC Glucose 143 H Random Glucose Calcium Calcium Adj for Albumin Magnesium Total Bilirubin AST ALT Alkaline Phosphatase Total Protein Albumin Urine Color Urine Clarity Urine pH Ur Specific [place] Urine Protein Urine Glucose (UA) Urine Ketones Urine Occult Blood Urine Nitrate Urine Bilirubin Urine Urobilinogen Ur Leukocyte Esterase Urine RBC Urine WBC Urine WBC Clumps Ur Squamous Epith Cells Urine Bacteria Hyaline Casts Urine Mucus Micro UA Comment Urine Culture Comments Urine Osmolality Ur Random Sodium 17 04/23/18 04:00 WBC RBC Hgb Hct MCV MCH MCHC RDW Plt Count MPV Neut % (Auto) Lymph % (Auto) [place] % (Auto) Eos % (Auto) Baso % (Auto) Neut # (Auto) Lymph # (Auto) [place] # (Auto) Eos # (Auto) Baso # (Auto) WBC Differential Differential Comment Sodium 137 Potassium 3.2 L Chloride 102 D Carbon Dioxide 24.7 Anion Gap 10 BUN 92 H Creatinine 4.08 H Estimated GFR 11 L POC Glucose Random Glucose 106 Calcium 6.9 L* Calcium Adj for Albumin 8.4 L Magnesium 1.4 L Total Bilirubin AST ALT Alkaline Phosphatase Total Protein Albumin 2.1 L Urine Color Urine Clarity Urine pH Ur Specific [place] Urine Protein Urine Glucose (UA) Urine Ketones Urine Occult Blood Urine Nitrate Urine Bilirubin Urine Urobilinogen Ur Leukocyte Esterase Urine RBC Urine WBC Urine WBC Clumps Ur Squamous Epith Cells Urine Bacteria Hyaline Casts Urine Mucus Micro UA Comment Urine Culture Comments Urine Osmolality Ur Random Sodium Microbiology 04/21/18 23:35 Clean Catch Urine Urine Culture - Preliminary Group D Enterococcus - Procedures none Assessment and Plan - Plan Neuro/Psych: Acetaminophen 650 mg by mouth every 6 hours as needed fever Hydrocodone/acetaminophen 5/325 -1 tablet every 4 hours as needed pain 1 through 5 Morphine sulfate 2 mg IV every 2 hours as needed CV: Currently not requiring vasopressors and/or antihypertensives EKG revealed no peak T waves. Decrease NS 125 cc an hour. Transient low BP from pain medicine Resp: Nasal cannula to maintain saturations greater than or equal to 92% Incentive spirometry while awake As needed albuterol aerosols every 2 hours as needed GI: Severe protein calorie malnutrition Recent exploratory laparotomy with extensive removal of intraperitoneal tumor including resection of large pelvic mass from right ovary, hysterectomy, bilateral salpingo-fragment, multifocal intense resection with primary anastomosis, intraperitoneal tumor cytoreduction and diverting ileostomy. Dr. Dalton. Full liquid diet advance per CRS Docusate sodium/senna 1 tablet twice daily for bowel regimen CT abdomen/pelvis-interval increase in the size of the mass previously noted adjacent to the gallbladder which now measures up to 4.2 x 3.5 cm in diameter. The previously noted large pelvic mass is no longer visualized. There is a smaller masslike structure now noted in the presacral region. CRS and Onc following. Poor performance status at this time. Op PET Endo: Sliding scale insulin Accu-Cheks to maintain euglycemia. TSH therapeutic. Cortisol 23 Renal: Acute kidney injury. Improving Renal consulted. 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 Follow trends. Check iron studies and Hemoccult stool. Consider transfusion Coags within normal limits CT abdomen/pelvis-as above Dr. Walsh consulted ID: Abnormal UA Ct Rocephin monitor cx FEN: Hyponatremia. Improving Hyperkalemia now hypokalemia Hypochloremia. Improved Hypomagnesemia Hypoalbuminemia Hyponatremia is most likely from sev dehydration Received D50/insulin/bicarbonate and calcium gluconate and Kayexalate in ED. Now potassium normalized Received 1 L normal saline in ED. 2L bolus now Replace with 50 mEq p.o. potassium and 1 g of IV magnesium. Repeat electrolytes in the morning MSK: PT evaluate and treat Access -Okay to utilize left Port-A-Cath. Peripheral IVs. Prophylaxis -GI -pantoprazole -DVT -SCD/heparin subcu Discharge Planning: Transfer to [facility] if okay with consultants
[2018-04-23 08:37] LABS: Hematocrit 22.9 % (35.0-46.0); Hemoglobin 7.6 gm/dL (11.6-15.3)
[2018-04-23] MEDS: Insulin NovoLOG Aspart Correctional Sugar Inj SQ SCH ×4 (10:39→21:42)
--- NOTE | 2018-04-23 10:42 | P.PNNP ---
Subjective Interval history: Patient is alert, no nausea, breathing is better, no dizziness. Physical Exam Vital signs: Vital Signs 04/22/18 11:00 04/22/18 11:22 04/22/18 12:00 Temperature Pulse Rate 65 79 Respiratory Rate 18 14 Blood Pressure 108/57 L Pulse Oximetry 99 04/22/18 12:01 04/22/18 13:00 04/22/18 13:24 Temperature Pulse Rate 95 H 77 68 Respiratory Rate 20 Blood Pressure 108/55 L 100/54 L Pulse Oximetry 100 04/22/18 14:00 04/22/18 15:00 04/22/18 16:00 Temperature Pulse Rate 77 70 62 Respiratory Rate 26 H 24 23 Blood Pressure 106/62 90/53 L Pulse Oximetry 100 97 100 04/22/18 16:02 04/22/18 17:28 04/22/18 20:00 Temperature 98.3 F Pulse Rate 59 L 66 110 H Respiratory Rate 22 Blood Pressure 83/50 L 100/55 L Pulse Oximetry 100 100 04/22/18 20:30 04/22/18 22:00 04/23/18 00:00 Temperature 98.3 F Pulse Rate 64 72 Respiratory Rate 27 H Blood Pressure 135/85 Pulse Oximetry 100 95 04/23/18 02:00 04/23/18 04:00 04/23/18 06:00 Temperature 98.6 F Pulse Rate 69 73 71 Respiratory Rate 24 Blood Pressure 92/52 L Pulse Oximetry 100 04/23/18 07:00 04/23/18 08:00 04/23/18 09:00 Temperature 97.5 F L Pulse Rate 63 75 78 Respiratory Rate 19 18 Blood Pressure 104/51 L 106/51 L Pulse Oximetry 98 100 99 04/23/18 09:01 Temperature Pulse Rate 74 Respiratory Rate 22 Blood Pressure 101/53 L Pulse Oximetry 100 Intake & Output 04/22/18 04/23/18 04/23/18 18:59 06:59 18:59 Intake Total 2536 / 2536 2500 / 2500 1000 / 1000 Output Total 1550 / 1550 1250 / 1250 Balance 986 / 986 1250 / 1250 1000 / 1000 Weight 53 kg Intake: IV 2536 / 2536 1999 1000 / 1000 NS Inj 1,000 ML @ 150 mls/hr IV 1999 1000 / 1000 .CONT .Q6H40M [facility] Rx#:[id number] 1/2 Normal Saline Inj 1,000 ML 336 / 336 @ 84 mls/hr IV.CONT .[id number] [facility] Rx#:[id number] Magnesium Sulfate 1 gm/D5W 100 100 / 100 ml Premix 100 ML @ 100 mls/hr IV.SIG ONCE ONE Rx#:[id number] NS Inj 2,000 ML @ Wide Open IV. 1999 SIG BOLUS ONE Rx#:[id number] Rocephin Inj 1,000 MG In NS Inj 100 / 100 100 ML @ 200 mls/hr IV.SIG Q24H [facility] Rx#:[id number] Oral 500 / 500 Output: Urine 950 / 950 1100 / 1100 Stool Amount (Stoma) 600 / 600 150 / 150 Pre-Hospital: Right Lower 600 / 600 150 / 150 Abdomen Other: # Voids 2 6 # Incontinent Voids 0 Date of Last Bowel Movement 04/22/18 04/22/18 04/22/18 Narrative: GEN: Lying in bed, no acute distress RESP: CTA bilaterally. Absent: accessory muscle use CVS: RRR, S1, S2. Absent: murmur GI: soft, normoactive bowel sounds, tenderness, ostomy. Absent: distended, mass EXT:cyanosis, clubbing, edema SKIN: Dry cyanosis NEURO: alert, oriented X3, CN II-XII intact. No sensory deficit, motor deficit - Urinary Catheter Management Straight Cath placed during this visit: no Reason for continuing: Not indwelling catheter Assessment and Plan - Assessment (1) Acute kidney failure Code(s): N17.9 - Acute kidney failure, unspecified Status: Acute (2) Abdominal wall mass of epigastric region Code(s): R19.06 - Epigastric swelling, mass or lump Status: Acute (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 BUN was much higher, most likely has an element of dehydration with possibility of acute tubular necrosis. Also, she has hyponatremia, which is probably contributed by decreased oral intake. The CT scan did not show any obstruction. Continue the IV fluid. On ceftriaxone, awaiting the urine culture. Sodium improving, also Creatinine improving. BP is still on lower side.
[2018-04-23] MEDS ORDERED: Acetaminophen 325 MG Tablet PO PRN (13:08)
--- NOTE | 2018-04-23 13:19 | P.PNONC ---
Subjective Interval history: Afebrile Patient reports she does not wish to go to rehab upon discharge Planning to transition her care from the [facility] to [place] office Denies any GI symptoms No pain Objective Vital Signs/Intake & Output: Vital Signs 04/22/18 13:24 04/22/18 14:00 04/22/18 15:00 Temperature Pulse Rate 68 77 70 Respiratory Rate 26 H 24 Blood Pressure 106/62 90/53 L Pulse Oximetry 100 97 04/22/18 16:00 04/22/18 16:02 04/22/18 17:28 Temperature Pulse Rate 62 59 L 66 Respiratory Rate 23 Blood Pressure 83/50 L Pulse Oximetry 100 100 04/22/18 20:00 04/22/18 20:30 04/22/18 22:00 Temperature 98.3 F Pulse Rate 110 H 64 Respiratory Rate 22 Blood Pressure 100/55 L Pulse Oximetry 100 100 04/23/18 00:00 04/23/18 02:00 04/23/18 04:00 Temperature 98.3 F 98.6 F Pulse Rate 72 69 73 Respiratory Rate 27 H 24 Blood Pressure 135/85 92/52 L Pulse Oximetry 95 100 04/23/18 06:00 04/23/18 07:00 04/23/18 08:00 Temperature 97.5 F L Pulse Rate 71 63 75 Respiratory Rate 19 18 Blood Pressure 104/51 L 106/51 L Pulse Oximetry 98 100 04/23/18 09:00 04/23/18 09:01 04/23/18 10:00 Temperature Pulse Rate 78 74 61 Respiratory Rate 22 Blood Pressure 101/53 L 87/48 L Pulse Oximetry 99 100 100 04/23/18 10:01 04/23/18 11:00 04/23/18 11:55 Temperature Pulse Rate 58 L 58 L 69 Respiratory Rate 16 Blood Pressure 95/50 L 101/50 L Pulse Oximetry 100 100 04/23/18 12:00 04/23/18 12:56 Temperature Pulse Rate 62 63 Respiratory Rate Blood Pressure 103/54 L Pulse Oximetry Intake & Output 04/22/18 04/23/18 04/23/18 18:59 06:59 18:59 Intake Total 2536 / 2536 2500 / 2500 1920 / 1920 Output Total 1550 / 1550 1250 / 1250 900 / 900 Balance 986 / 986 1250 / 1250 1020 / 1020 Weight 116 lb 13.52 oz Intake: IV 2536 / 2536 1999 1200 / 1200 NS Inj 1,000 ML @ 150 mls/hr IV 1999 1000 / 1000 .CONT .Q6H40M [facility] Rx#:[id number] 1/2 Normal Saline Inj 1,000 ML 336 / 336 @ 84 mls/hr IV.CONT .[id number] [facility] Rx#:[id number] Magnesium Sulfate 1 gm/D5W 100 100 / 100 100 / 100 ml Premix 100 ML @ 100 mls/hr IV.SIG ONCE ONE Rx#:[id number] NS Inj 2,000 ML @ Wide Open IV. 1999 SIG BOLUS ONE Rx#:[id number] Rocephin Inj 1,000 MG In NS Inj 100 / 100 100 / 100 100 ML @ 200 mls/hr IV.SIG Q24H [facility] Rx#:[id number] Oral 500 / 500 720 / 720 Output: Urine 950 / 950 1100 / 1100 425 / 425 Stool Amount (Stoma) 600 / 600 150 / 150 475 / 475 Pre-Hospital: Right Lower 600 / 600 150 / 150 475 / 475 Abdomen Other: # Voids 2 6 # Incontinent Voids 0 Date of Last Bowel Movement 04/22/18 04/22/18 04/22/18 Result Diagrams: 04/23/18 08:14 04/23/18 04:00 Laboratory Results: Laboratory Results - last 24 hr 04/21/18 04/22/18 04/22/18 23:35 15:00 15:05 WBC RBC Hgb Hct MCV MCH MCHC RDW Plt Count MPV Neut % (Auto) Lymph % (Auto) [place] % (Auto) Eos % (Auto) Baso % (Auto) Neut # (Auto) Lymph # (Auto) [place] # (Auto) Eos # (Auto) Baso # (Auto) WBC Differential Differential Comment Sodium 132 L Potassium 3.6 Chloride 94 L D Carbon Dioxide 24.5 Anion Gap 14 BUN 126 H Creatinine 5.53 H Estimated GFR 8 L POC Glucose 169 H Random Glucose 150 H Calcium 7.4 L* D Calcium Adj for Albumin 8.2 L Magnesium Iron TIBC % Saturation Ferritin Total Bilirubin 0.3 AST 17 ALT 25 Alkaline Phosphatase 152 H Total Protein 5.7 L D Albumin 2.2 L D Urine Color Yellow Urine Clarity Cloudy H Urine pH 6.0 Ur Specific [place] 1.013 Urine Protein 100 H Urine Glucose (UA) Negative Urine Ketones Negative Urine Occult Blood Negative Urine Nitrate Negative Urine Bilirubin Negative Urine Urobilinogen Less than 2 Ur Leukocyte Esterase Large H Urine RBC 2 Urine WBC 126 H Urine WBC Clumps Many H Ur Squamous Epith Cells 1 Urine Bacteria Occasional H Hyaline Casts 5 Urine Mucus Few H Micro UA Comment Culture indicated Urine Culture Comments Culture indicated Urine Osmolality Ur Random Sodium 04/22/18 04/22/18 04/23/18 17:00 17:00 00:00 WBC RBC Hgb Hct MCV MCH MCHC RDW Plt Count MPV Neut % (Auto) Lymph % (Auto) [place] % (Auto) Eos % (Auto) Baso % (Auto) Neut # (Auto) Lymph # (Auto) [place] # (Auto) Eos # (Auto) Baso # (Auto) WBC Differential Differential Comment Sodium Potassium Chloride Carbon Dioxide Anion Gap BUN Creatinine Estimated GFR POC Glucose 143 H Random Glucose Calcium Calcium Adj for Albumin Magnesium Iron TIBC % Saturation Ferritin Total Bilirubin AST ALT Alkaline Phosphatase Total Protein Albumin Urine Color Urine Clarity Urine pH Ur Specific [place] Urine Protein Urine Glucose (UA) Urine Ketones Urine Occult Blood Urine Nitrate Urine Bilirubin Urine Urobilinogen Ur Leukocyte Esterase Urine RBC Urine WBC Urine WBC Clumps Ur Squamous Epith Cells Urine Bacteria Hyaline Casts Urine Mucus Micro UA Comment Urine Culture Comments Urine Osmolality 401 Ur Random Sodium 17 04/23/18 04/23/18 04/23/18 04:00 04:00 07:15 WBC 7.4 RBC 2.71 L Hgb 7.7 L D Hct 22.8 L MCV 84.5 MCH 28.6 MCHC 33.9 RDW 20.4 H Plt Count 207 D MPV 6.4 L Neut % (Auto) 66.4 Lymph % (Auto) 22.3 [place] % (Auto) 10.7 H Eos % (Auto) 0.3 Baso % (Auto) 0.3 Neut # (Auto) 4.9 Lymph # (Auto) 1.6 [place] # (Auto) 0.8 Eos # (Auto) 0.0 Baso # (Auto) 0.0 WBC Differential . Differential Comment Auto diff final Sodium 137 Potassium 3.2 L Chloride 102 D Carbon Dioxide 24.7 Anion Gap 10 BUN 92 H Creatinine 4.08 H Estimated GFR 11 L POC Glucose Random Glucose 106 Calcium 6.9 L* Calcium Adj for Albumin 8.4 L Magnesium 1.4 L Iron 31 L TIBC 193 L % Saturation 16.0 L Ferritin 461 H Total Bilirubin AST ALT Alkaline Phosphatase Total Protein Albumin 2.1 L Urine Color Urine Clarity Urine pH Ur Specific [place] Urine Protein Urine Glucose (UA) Urine Ketones Urine Occult Blood Urine Nitrate Urine Bilirubin Urine Urobilinogen Ur Leukocyte Esterase Urine RBC Urine WBC Urine WBC Clumps Ur Squamous Epith Cells Urine Bacteria Hyaline Casts Urine Mucus Micro UA Comment Urine Culture Comments Urine Osmolality Ur Random Sodium 04/23/18 08:14 WBC RBC Hgb 7.6 L Hct 22.9 L MCV MCH MCHC RDW Plt Count MPV Neut % (Auto) Lymph % (Auto) [place] % (Auto) Eos % (Auto) Baso % (Auto) Neut # (Auto) Lymph # (Auto) [place] # (Auto) Eos # (Auto) Baso # (Auto) WBC Differential Differential Comment Sodium Potassium Chloride Carbon Dioxide Anion Gap BUN Creatinine Estimated GFR POC Glucose Random Glucose Calcium Calcium Adj for Albumin Magnesium Iron TIBC % Saturation Ferritin Total Bilirubin AST ALT Alkaline Phosphatase Total Protein Albumin Urine Color Urine Clarity Urine pH Ur Specific [place] Urine Protein Urine Glucose (UA) Urine Ketones Urine Occult Blood Urine Nitrate Urine Bilirubin Urine Urobilinogen Ur Leukocyte Esterase Urine RBC Urine WBC Urine WBC Clumps Ur Squamous Epith Cells Urine Bacteria Hyaline Casts Urine Mucus Micro UA Comment Urine Culture Comments Urine Osmolality Ur Random Sodium Culture Results: Microbiology 04/21/18 23:35 Urine Culture - Final Clean Catch Urine Enterococcus faecalis 04/23/18 07:15 Stool Occult Blood (BUFFY) - Final Stool Hemoccult positive Medications: Active Medications Generic Name Dose Route Start Last Admin Trade Name Freq PRN Reason Stop Dose Admin Hydrocodone Bitart/Acetaminophen 1 tab 04/21/18 20:23 04/23/18 08:28 Saxis 5/325 PO 1 tab Q4H PRN Administration PAIN SCALE 1 TO 5 Chlorhexidine Gluconate 3 pack 04/22/18 04:00 04/23/18 05:06 Chlorhexidine 2% Cloth TOPICAL 04/27/18 03:59 3 pack DAILY@0400 [facility] Administration Heparin Sodium (Porcine) 5,000 units 04/22/18 11:45 04/23/18 08:28 Heparin Inj SQ Not Given Q12HR [facility] Ceftriaxone Sodium 1,000 mg/ 100 mls @ 200 mls/hr 04/22/18 11:00 04/23/18 11: 30 Sodium Chloride IV.SIG Infused Q24H [facility] Infusion Sodium Chloride 1,000 mls @ 125 mls/hr 04/22/18 10:30 04/23/18 10:39 Ns Inj IV.CONT 125 mls/hr .Q8H [facility] Infusion Insulin Aspart 0 unit 04/23/18 08:00 04/23/18 10:39 Novolog Insulin Correctional Sugar Inj SQ Not Given ACHS [facility] Protocol Morphine Sulfate 2 mg 04/21/18 20:23 04/23/18 06:32 Morphine Inj IV.PUSH 2 mg Q2H PRN Administration PAIN SCALE 6 TO 10 Ondansetron HCl 4 mg 04/21/18 20:23 04/21/18 23:27 Zofran Inj IV.PUSH 4 mg Q6H PRN Administration NAUSEA OR VOMITING Senna/Docusate Sodium 1 tab 04/21/18 21:00 04/23/18 08:28 Mis-Colace PO Not Given BID JANESSA Sodium Chloride 2 ml 04/21/18 21:00 04/23/18 08:28 Ns Flush IV.FLUSH 2 ml BID JANESSA Administration Objective Remarks: GENERAL: Very thin older female resting in bed in no acute distress SKIN: Warm and dry. HEAD: Normocephalic. EYES: No scleral icterus. No injection or drainage. NECK: Supple, trachea midline. No JVD or lymphadenopathy. CARDIOVASCULAR: Regular rate and rhythm without murmurs. RESPIRATORY: Clear anteriorly. GASTROINTESTINAL: Ileostomy to left upper quadrant EXTREMITIES: No cyanosis, or edema. MUSCULOSKELETAL: Adequate muscle tone. NEUROLOGICAL: No obvious focal deficit. Awake, alert, and oriented x3. Assessment/Plan - Plan 67-year-old female with history of metastatic colon cancer who underwent extensive abdominal debulking surgery with placement of ileostomy. She was originally diagnosed with stage III colon cancer in 2017 and completed 6 cycles of adjuvant FOLFOX chemotherapy. The patient had significant weight loss after surgery. 1. Reviewed the patient's hemoglobin dropped from 10.1-7.7 today. This is likely in large part due to hemodilution in lieu of her mild hypotension and kidney injury will still go ahead and transfuse 1 unit packed red blood cells. This was discussed with the patient and she is agreeable. She is Hemoccult positive. She does appear to have some mild iron deficiency with an MCV on the lower side of normal and iron indices low as well. Her ferritin is elevated however this can possibly be an acute phase reactant. 2. We reviewed she will need to increase her nutritional intake in order to get better and be a candidate for any further chemotherapy. 3. Continue supportive care. - Attending Statement The exam, history, and the medical decision-making described in the above note were completed with the assistance of the mid-level provider. I reviewed and agree with the findings presented. I attest that I had a [id number] encounter with the patient on the same day, and personally performed and documented my assessment and findings in the medical record. Patient is feeling better after hydration. Hemoglobin trended down to 7.7 due to hemodilution. She still has generalized weakness. Her renal function has improved. We will give her 1 unit of packed blood cell transfusion. Continue supportive care.
[2018-04-23] MEDS ORDERED: Sodium Chlor 0.9% Inj 250 ML IV.SIG SCH (14:00)
[2018-04-23] MEDS: Ciprofloxacin 200 MG/100 ML 200 MG/100 ML PIGGYBACK IV.SIG SCH (21:29)
[2018-04-24] MEDS: Chlorhexidine Gluconate 2% 1 Pack (2 Cloths) TOPICAL SCH (04:42)
[2018-04-24] MEDS: Sod Chloride 0.9% Inj 1,000 ML IV.CONT SCH ×3 (06:18→21:48)
[2018-04-24 07:37] LABS: Baso % (Auto) 0.3 % (0.0-2.0); Eos # (Auto) 0.1 th/mm3 (0.0-0.4); Eos % (Auto) 0.6 % (0.0-4.0); Hematocrit 27.7 % (35.0-46.0); Hemoglobin 9.5 gm/dL (11.6-15.3); Lymph % (Auto) 19.9 % (9.0-44.0); Mean Corpuscular HGB Conc 34.3 % (32.0-36.0); Mean Corpuscular Hemoglobin 29.2 pg (27.0-34.0); Mean Corpuscular Volume 85.3 fL (80.0-100.0); Mean Platelet Volume 6.7 fL (7.0-11.0); Mono # (Auto) 1.1 th/mm3 (0.0-0.9); Mono % (Auto) 10.4 % (0.0-8.0); Neut % (Auto) 68.8 % (16.0-70.0); Platelet Count 208 th/mm3 (150-450); Red Blood Count 3.25 mil/mm3 (4.00-5.30); Red Cell Distribution Width 19.3 % (11.6-17.2); White Blood Count 10.1 th/mm3 (4.0-11.0)
[2018-04-24 08:16] LABS: Calcium 7.2 mg/dL (8.5-10.1); Carbon Dioxide 22.9 meq/L (21.0-32.0); Magnesium 1.2 mg/dL (1.5-2.5); Potassium 3.2 meq/L (3.5-5.1)
[2018-04-24 08:29] LABS: Albumin 1.9 g/dL (3.4-5.0); Calcium-Albumin Corrected 8.9 mg/dL (8.5-10.1)
--- NOTE | 2018-04-24 08:29 | P.PN ---
Subjective Interval history: Follow-up acute kidney injury. Urine output 2000 mL, stool volume 1900 mL and po intake 3900 per EMR. On IV fluid 125 cc an hour. Patient is feeling better still with significant ileostomy output Physical Exam Vital signs: Vital Signs 04/23/18 09:00 04/23/18 09:01 04/23/18 10:00 Temperature Pulse Rate 78 74 61 Respiratory Rate 22 Blood Pressure 101/53 L 87/48 L Pulse Oximetry 99 100 100 04/23/18 10:01 04/23/18 11:00 04/23/18 11:55 Temperature Pulse Rate 58 L 58 L 69 Respiratory Rate 16 Blood Pressure 95/50 L 101/50 L Pulse Oximetry 100 100 04/23/18 12:00 04/23/18 12:56 04/23/18 13:00 Temperature Pulse Rate 62 63 70 Respiratory Rate 27 H Blood Pressure 103/54 L Pulse Oximetry 100 99 04/23/18 13:01 04/23/18 14:00 04/23/18 15:00 Temperature Pulse Rate 71 78 89 Respiratory Rate Blood Pressure 105/62 101/57 L 104/66 Pulse Oximetry 100 100 96 04/23/18 15:13 04/23/18 15:37 04/23/18 15:45 Temperature 98.3 F 98.4 F Pulse Rate 80 66 67 Respiratory Rate 25 H 16 Blood Pressure 104/66 100/45 L Pulse Oximetry 100 04/23/18 16:00 04/23/18 16:15 04/23/18 16:17 Temperature 98.5 F 98.4 F Pulse Rate 64 60 60 Respiratory Rate 14 23 16 Blood Pressure 90/54 L 103/52 L 103/52 L Pulse Oximetry 100 100 100 04/23/18 16:30 04/23/18 16:45 04/23/18 17:00 Temperature Pulse Rate 59 L 55 L 70 Respiratory Rate 22 18 Blood Pressure 107/52 L 97/50 L 92/53 L Pulse Oximetry 99 97 99 04/23/18 17:03 04/23/18 18:00 04/23/18 19:00 Temperature Pulse Rate 63 63 73 Respiratory Rate 31 H Blood Pressure 106/55 L Pulse Oximetry 100 96 04/23/18 19:01 04/23/18 20:00 04/23/18 20:20 Temperature 98 F Pulse Rate 71 75 Respiratory Rate 32 H 19 Blood Pressure 114/50 L 113/53 L Pulse Oximetry 100 100 99 04/23/18 21:00 04/23/18 21:42 04/23/18 22:00 Temperature Pulse Rate 74 69 Respiratory Rate 20 15 15 Blood Pressure 116/61 110/52 L Pulse Oximetry 99 99 04/23/18 23:00 04/24/18 00:00 04/24/18 01:00 Temperature Pulse Rate 76 68 79 Respiratory Rate 21 20 20 Blood Pressure 113/56 L 109/51 L 119/58 L Pulse Oximetry 97 97 100 04/24/18 02:00 04/24/18 03:00 04/24/18 04:00 Temperature Pulse Rate 84 78 83 Respiratory Rate 17 17 17 Blood Pressure 135/64 119/58 L 124/56 L Pulse Oximetry 99 97 98 04/24/18 05:00 04/24/18 05:01 04/24/18 05:25 Temperature Pulse Rate 91 H 88 Respiratory Rate 31 H 23 18 Blood Pressure 120/56 L Pulse Oximetry 96 97 04/24/18 06:00 Temperature Pulse Rate 83 Respiratory Rate 29 H Blood Pressure 118/52 L Pulse Oximetry 99 Intake & Output 04/23/18 04/24/18 04/24/18 18:59 06:59 18:59 Intake Total 3850 / 3850 3350 / 3350 Output Total 2099 / 2099 1875 / 1875 Balance 1750 / 1750 1475 / 1475 Weight 59.5 kg Intake: IV 1200 / 1200 2099 / 2099 NS Inj 1,000 ML @ 125 mls/hr IV 1000 / 1000 2000 / 2000 .CONT .Q8H JANESSA Rx#:[id number] Cipro 200 MG/100 ML Inj 200 mg 100 / 100 In 100 ml @ 100 mls/hr IV.SIG Q12H JANESSA Rx#:[id number] Magnesium Sulfate 1 gm/D5W 100 100 / 100 ml Premix 100 ML @ 100 mls/hr IV.SIG ONCE ONE Rx#:[id number] Rocephin Inj 1,000 MG In NS Inj 100 / 100 100 ML @ 200 mls/hr IV.SIG Q24H JANESSA Rx#:[id number] Oral 2650 / 2650 1250 / 1250 Intake (Blood Product) Amt 0 / 0 Rbc As-3 Leukoreduced Unit 0 / 0 [id number] Output: Urine 1075 / 1075 1000 / 1000 Stool Amount (Stoma) 1025 / 1025 875 / 875 Pre-Hospital: Right Lower 1025 / 1025 875 / 875 Abdomen Other: # Voids 5 Date of Last Bowel Movement 04/22/18 04/24/18 Narrative: GEN: Lying in bed, no acute distress RESP: CTA bilaterally. Absent: accessory muscle use CVS: RRR, S1, S2. Absent: murmur GI: soft, normoactive bowel sounds, tenderness, ostomy. Absent: distended, mass EXT:cyanosis, clubbing, edema SKIN: Dry no cyanosis NEURO: alert, oriented X3, CN II-XII intact. No sensory deficit, motor deficit - Urinary Catheter Management Straight Cath placed during this visit: no Reason for continuing: Not indwelling catheter Results - Labs CBC & Chem 7: 04/24/18 04:50 04/24/18 04:50 Laboratory Results - last 24 hr 04/23/18 04/23/18 04/23/18 07:15 08:14 13:20 WBC RBC Hgb 7.6 L Hct 22.9 L MCV MCH MCHC RDW Plt Count MPV Neut % (Auto) Lymph % (Auto) [place] % (Auto) Eos % (Auto) Baso % (Auto) Neut # (Auto) Lymph # (Auto) [place] # (Auto) Eos # (Auto) Baso # (Auto) WBC Differential Differential Comment Sodium Potassium Chloride Carbon Dioxide Anion Gap BUN Creatinine Estimated GFR POC Glucose Random Glucose Calcium Magnesium Iron 31 L TIBC 193 L % Saturation 16.0 L Ferritin 461 H Blood Type O Positive Antibody Screen Negative MTS Gel Crossmatch See Detail 04/23/18 04/23/18 04/24/18 17:12 21:18 04:50 WBC 10.1 RBC 3.25 L Hgb 9.5 L Hct 27.7 L MCV 85.3 MCH 29.2 MCHC 34.3 RDW 19.3 H Plt Count 208 MPV 6.7 L Neut % (Auto) 68.8 Lymph % (Auto) 19.9 [place] % (Auto) 10.4 H Eos % (Auto) 0.6 Baso % (Auto) 0.3 Neut # (Auto) 7.0 Lymph # (Auto) 2.0 [place] # (Auto) 1.1 H Eos # (Auto) 0.1 Baso # (Auto) 0.0 WBC Differential . Differential Comment Auto diff final Sodium Potassium Chloride Carbon Dioxide Anion Gap BUN Creatinine Estimated GFR POC Glucose 109 178 H Random Glucose Calcium Magnesium Iron TIBC % Saturation Ferritin Blood Type Antibody Screen MTS Gel Crossmatch 04/24/18 04:50 WBC RBC Hgb Hct MCV MCH MCHC RDW Plt Count MPV Neut % (Auto) Lymph % (Auto) [place] % (Auto) Eos % (Auto) Baso % (Auto) Neut # (Auto) Lymph # (Auto) [place] # (Auto) Eos # (Auto) Baso # (Auto) WBC Differential Differential Comment Sodium 139 Potassium 3.2 L Chloride 109 H Carbon Dioxide 22.9 Anion Gap 7 BUN 46 H Creatinine 2.06 H Estimated GFR 24 L POC Glucose Random Glucose 98 Calcium 7.2 L* Magnesium 1.2 L Iron TIBC % Saturation Ferritin Blood Type Antibody Screen MTS Gel Crossmatch Microbiology 04/21/18 23:35 Clean Catch Urine Urine Culture - Final Enterococcus faecalis 04/23/18 07:15 Stool Stool Occult Blood (BUFFY) - Final Hemoccult positive - Procedures none Assessment and Plan - Plan Neuro/Psych: Acetaminophen 650 mg by mouth every 6 hours as needed fever Hydrocodone/acetaminophen 5/325 -1 tablet every 4 hours as needed pain 1 through 5 Morphine sulfate 2 mg IV every 2 hours as needed CV: Currently not requiring vasopressors and/or antihypertensives EKG revealed no peak T waves. Decrease NS 84 cc an hour. Transient low BP from pain medicine, resolved Resp: Nasal cannula to maintain saturations greater than or equal to 92% Incentive spirometry while awake As needed albuterol aerosols every 2 hours as needed GI: Severe protein calorie malnutrition Recent exploratory laparotomy with extensive removal of intraperitoneal tumor including resection of large pelvic mass from right ovary, hysterectomy, bilateral salpingo-fragment, multifocal intense resection with primary anastomosis, intraperitoneal tumor cytoreduction and diverting ileostomy. Dr. Dalton. Full liquid diet advance per CRS Docusate sodium/senna 1 tablet twice daily for bowel regimen CT abdomen/pelvis-interval increase in the size of the mass previously noted adjacent to the gallbladder which now measures up to 4.2 x 3.5 cm in diameter. The previously noted large pelvic mass is no longer visualized. There is a smaller masslike structure now noted in the presacral region. CRS and Onc following. Poor performance status at this time. Op PET Endo: Sliding scale insulin Accu-Cheks to maintain euglycemia. TSH therapeutic. Cortisol 23 Renal: Acute kidney injury. Improving Renal consulted. 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 Improved Normocytic normochromic anemia. Improved after packed RBC transfusion Monitor CBC daily. Follow trends. + Hemoccult stool (CRS following). Coags within normal limits CT abdomen/pelvis-as above Dr. Walsh consulted ID: Enterococcus faecalis UTI with sepsis, POA Switch to Cipro FEN: Hyponatremia. Improving Hyperkalemia now hypokalemia, persistent secondary to ongoing diarrhea Hypochloremia. Improved Hypomagnesemia Hypoalbuminemia Hyponatremia is most likely from sev dehydration Received D50/insulin/bicarbonate and calcium gluconate and Kayexalate in ED. Now potassium normalized Received 1 L normal saline in ED. 2L bolus now Replace with 60 mEq p.o. potassium and 2 g of IV magnesium. Repeat electrolytes in the morning MSK: PT evaluate and treat Access -Okay to utilize left Port-A-Cath. Peripheral IVs. Prophylaxis -GI -pantoprazole -DVT -SCD/heparin subcu Discharge Planning: Refusing rehAb, needs walker Transfer to [facility] if okay with consultants
[2018-04-24] MEDS: Senna/Docusate Sodium 8.6/50 MG Tablet PO SCH (08:32)
[2018-04-24] MEDS: Ferrous Sulfate 325 MG Tablet PO SCH (08:32)
[2018-04-24] MEDS: Ciprofloxacin 200 MG/100 ML 200 MG/100 ML PIGGYBACK IV.SIG SCH ×2 (08:32→21:41)
[2018-04-24] MEDS: Heparin - SQ 10,000 UNITS/ML Vial SQ SCH ×2 (08:32→21:49)
[2018-04-24] MEDS: Insulin NovoLOG Aspart Correctional Sugar Inj SQ SCH ×4 (08:39→21:46)
[2018-04-24] MEDS: Mag Sulf 1 gm/100 ml Premix 100 ML IV.SIG SCH ×2 (10:37→11:50)
[2018-04-24] MEDS: Morphine Sulfate Inj 2 MG/ML Vial IV.PUSH PRN ×3 (11:49→21:38)
--- NOTE | 2018-04-24 12:29 | P.PNONC ---
Subjective Interval history: Afebrile. Patient awake and alert, in no acute distress. She reports abdominal pain and is requesting pain medication. She states she is awaiting bed transfer out of the ICU. Objective Vital Signs/Intake & Output: Vital Signs 04/23/18 12:56 04/23/18 13:00 04/23/18 13:01 Temperature Pulse Rate 63 70 71 Respiratory Rate Blood Pressure 105/62 Pulse Oximetry 99 100 04/23/18 14:00 04/23/18 15:00 04/23/18 15:13 Temperature Pulse Rate 78 89 80 Respiratory Rate Blood Pressure 101/57 L 104/66 Pulse Oximetry 100 96 04/23/18 15:37 04/23/18 15:45 04/23/18 16:00 Temperature 98.3 F 98.4 F 98.5 F Pulse Rate 66 67 64 Respiratory Rate 25 H 16 14 Blood Pressure 104/66 100/45 L 90/54 L Pulse Oximetry 100 100 04/23/18 16:15 04/23/18 16:17 04/23/18 16:30 Temperature 98.4 F Pulse Rate 60 60 59 L Respiratory Rate 23 16 22 Blood Pressure 103/52 L 103/52 L 107/52 L Pulse Oximetry 100 100 99 04/23/18 16:45 04/23/18 17:00 04/23/18 17:03 Temperature Pulse Rate 55 L 70 63 Respiratory Rate 18 Blood Pressure 97/50 L 92/53 L Pulse Oximetry 97 99 04/23/18 18:00 04/23/18 19:00 04/23/18 19:01 Temperature Pulse Rate 63 73 71 Respiratory Rate 31 H 32 H Blood Pressure 106/55 L 114/50 L Pulse Oximetry 100 96 100 04/23/18 20:00 04/23/18 20:20 04/23/18 21:00 Temperature 98 F Pulse Rate 75 74 Respiratory Rate 19 20 Blood Pressure 113/53 L 116/61 Pulse Oximetry 100 99 99 04/23/18 21:42 04/23/18 22:00 04/23/18 23:00 Temperature Pulse Rate 69 76 Respiratory Rate 15 15 21 Blood Pressure 110/52 L 113/56 L Pulse Oximetry 99 97 04/24/18 00:00 04/24/18 01:00 04/24/18 02:00 Temperature Pulse Rate 68 79 84 Respiratory Rate 20 20 17 Blood Pressure 109/51 L 119/58 L 135/64 Pulse Oximetry 97 100 99 04/24/18 03:00 04/24/18 04:00 04/24/18 05:00 Temperature Pulse Rate 78 83 91 H Respiratory Rate 17 17 31 H Blood Pressure 119/58 L 124/56 L Pulse Oximetry 97 98 96 04/24/18 05:01 04/24/18 05:25 04/24/18 06:00 Temperature Pulse Rate 88 83 Respiratory Rate 23 18 29 H Blood Pressure 120/56 L 118/52 L Pulse Oximetry 97 99 04/24/18 07:00 04/24/18 08:00 04/24/18 08:50 Temperature 98.9 F Pulse Rate 88 76 Respiratory Rate 24 18 Blood Pressure 123/60 118/56 L Pulse Oximetry 100 96 96 04/24/18 09:00 04/24/18 10:00 Temperature Pulse Rate 80 78 Respiratory Rate 18 20 Blood Pressure 112/80 123/60 Pulse Oximetry 98 96 Intake & Output 04/23/18 04/24/18 04/24/18 18:59 06:59 18:59 Intake Total 3850 / 3850 3350 / 3350 100 / 100 Output Total 2100 / 2100 1875 / 1875 Balance 1750 / 1750 1475 / 1475 100 / 100 Weight 59.5 kg Intake: IV 1200 / 1200 2099 / 2100 100 / 100 NS Inj 1,000 ML @ 125 mls/hr IV 1000 / 1000 2000 / 1999 .CONT .Q8H JANESSA Rx#:[id number] Cipro 200 MG/100 ML Inj 200 mg 100 / 100 In 100 ml @ 100 mls/hr IV.SIG Q12H JANESSA Rx#:[id number] Magnesium Sulfate 1 gm/D5W 100 100 / 100 100 / 100 ml Premix 100 ML @ 100 mls/hr IV.SIG Q1H JANESSA Rx#:[id number] Rocephin Inj 1,000 MG In NS Inj 100 / 100 100 ML @ 200 mls/hr IV.SIG Q24H JANESSA Rx#:[id number] Oral 2650 / 2650 1250 / 1250 Intake (Blood Product) Amt 0 / 0 Rbc As-3 Leukoreduced Unit 0 / 0 [id number] Output: Urine 1075 / 1075 1000 / 1000 Stool Amount (Stoma) 1025 / 1025 875 / 875 Pre-Hospital: Right Lower 1025 / 1025 875 / 875 Abdomen Other: # Voids 5 Date of Last Bowel Movement 04/22/18 04/24/18 04/24/18 Result Diagrams: 04/24/18 04:50 04/24/18 04:50 Laboratory Results: Laboratory Results - last 24 hr 04/23/18 04/23/18 04/23/18 13:20 17:12 21:18 WBC RBC Hgb Hct MCV MCH MCHC RDW Plt Count MPV Neut % (Auto) Lymph % (Auto) [place] % (Auto) Eos % (Auto) Baso % (Auto) Neut # (Auto) Lymph # (Auto) [place] # (Auto) Eos # (Auto) Baso # (Auto) WBC Differential Differential Comment Sodium Potassium Chloride Carbon Dioxide Anion Gap BUN Creatinine Estimated GFR POC Glucose 109 178 H Random Glucose Calcium Calcium Adj for Albumin Magnesium Albumin Blood Type O Positive Antibody Screen Negative MTS Gel Crossmatch See Detail 04/24/18 04/24/18 04/24/18 04:50 04:50 08:39 WBC 10.1 RBC 3.25 L Hgb 9.5 L Hct 27.7 L MCV 85.3 MCH 29.2 MCHC 34.3 RDW 19.3 H Plt Count 208 MPV 6.7 L Neut % (Auto) 68.8 Lymph % (Auto) 19.9 [place] % (Auto) 10.4 H Eos % (Auto) 0.6 Baso % (Auto) 0.3 Neut # (Auto) 7.0 Lymph # (Auto) 2.0 [place] # (Auto) 1.1 H Eos # (Auto) 0.1 Baso # (Auto) 0.0 WBC Differential . Differential Comment Auto diff final Sodium 139 Potassium 3.2 L Chloride 109 H Carbon Dioxide 22.9 Anion Gap 7 BUN 46 H Creatinine 2.06 H Estimated GFR 24 L POC Glucose 161 H Random Glucose 98 Calcium 7.2 L* Calcium Adj for Albumin 8.9 Magnesium 1.2 L Albumin 1.9 L Blood Type Antibody Screen MTS Gel Crossmatch Culture Results: Microbiology 04/21/18 23:35 Urine Culture - Final Clean Catch Urine Enterococcus faecalis 04/23/18 07:15 Stool Occult Blood (BUFFY) - Final Stool Hemoccult positive Medications: Active Medications Generic Name Dose Route Start Last Admin Trade Name Freq PRN Reason Stop Dose Admin Acetaminophen 650 mg 04/23/18 13:08 04/23/18 15:06 Tylenol PO 650 mg Q4H PRN Administration SEE LABEL COMMENTS Hydrocodone Bitart/Acetaminophen 1 tab 04/21/18 20:23 04/24/18 08:32 [place] 5/325 PO 1 tab Q4H PRN Administration PAIN SCALE 1 TO 5 Chlorhexidine Gluconate 3 pack 04/22/18 04:00 04/24/18 04:42 Chlorhexidine 2% Cloth TOPICAL 04/27/18 03:59 3 pack DAILY@0400 JANESSA Administration Diphenhydramine HCl 25 mg 04/23/18 13:08 04/23/18 15:06 Benadryl PO 25 mg Q4H PRN Administration SEE LABEL COMMENTS Ferrous Sulfate 325 mg 04/24/18 09:00 04/24/18 08:32 Ferosul PO 325 mg DAILY JANESSA Administration Heparin Sodium (Porcine) 5,000 units 04/22/18 11:45 04/24/18 08:32 Heparin Inj SQ 5,000 units Q12HR JANESSA Administration Sodium Chloride 1,000 mls @ 84 mls/hr 04/22/18 10:30 04/24/18 06:18 Ns Inj IV.CONT 125 mls/hr .[id number] JANESSA Administration Ciprofloxacin/Dextrose 200 mg in 100 mls @ 100 mls/hr 04/23/18 21:00 08:32 Cipro 200 Mg/100 Ml Inj IV.SIG 100 mls/hr Q12H JANESSA Administration Insulin Aspart 0 unit 04/23/18 08:00 04/24/18 08:39 Novolog Insulin Correctional Sugar Inj SQ Not Given ACHS [facility] Protocol Morphine Sulfate 2 mg 04/21/18 20:23 04/24/18 11:49 Morphine Inj IV.PUSH 2 mg Q2H PRN Administration PAIN SCALE 6 TO 10 Ondansetron HCl 4 mg 04/21/18 20:23 04/21/18 23:27 Zofran Inj IV.PUSH 4 mg Q6H PRN Administration NAUSEA OR VOMITING Senna/Docusate Sodium 1 tab 04/21/18 21:00 04/24/18 08:32 Mis-Colace PO 1 tab BID JANESSA Administration Sodium Chloride 2 ml 04/21/18 21:00 04/24/18 10:37 Ns Flush IV.FLUSH 2 ml BID JANESSA Administration Objective Remarks: GENERAL: Very thin elderly female, in no acute distress. SKIN: Warm and dry. HEAD: Normocephalic. EYES: No scleral icterus. No injection or drainage. NECK: Supple, trachea midline. CARDIOVASCULAR: Regular rate and rhythm without murmurs. RESPIRATORY: Clear anteriorly. GASTROINTESTINAL: Ileostomy, pink stoma, stool in bag. EXTREMITIES: No cyanosis, or edema. MUSCULOSKELETAL: Adequate muscle tone. NEUROLOGICAL: No obvious focal deficit. Awake, alert, and oriented x3. Assessment/Plan - Plan 67-year-old female with history of metastatic colon cancer who underwent extensive abdominal debulking surgery with placement of ileostomy. She was originally diagnosed with stage III colon cancer in 2017 and completed 6 cycles of adjuvant FOLFOX chemotherapy. The patient had significant weight loss after surgery. 1. Anemia, status post 1 unit PRBCs yesterday. Hemoglobin 9.5 today. Stool Hemoccult positive. Continue to monitor for bleeding. 2. Urine culture positive for enterococcus faecalis which is sensitive to ciprofloxacin, patient continues on Cipro. 3. Continue supportive care. - Attending Statement The exam, history, and the medical decision-making described in the above note were completed with the assistance of the mid-level provider. I reviewed and agree with the findings presented. I attest that I had a [id number] encounter with the patient on the same day, and personally performed and documented my assessment and findings in the medical record. Patient is complaining of generalized weakness. Requesting for physical therapy. Patient is asking "what is the next plan for my cancer" I have reviewed her records. Unfortunately patient was unable to come back to the office to resume palliative chemotherapy. In fact she has an appointment with me for day after tomorrow at [facility] office to discuss chemotherapy. I have reschedule a follow-up for next week Tuesday as I anticipate that she will be still in the hospital by this Tuesday. We will treat her with FOLFIRI plus/minus Avastin chemotherapy as an outpatient. We will consult physical therapy
--- NOTE | 2018-04-24 13:31 | P.PN ---
Subjective Interval history: Metastatic colon cancer, 7 weeks postop, dehydration/high ileostomy output more comfortable Physical Exam Vital signs: Vital Signs 04/23/18 14:00 04/23/18 15:00 04/23/18 15:13 Temperature Pulse Rate 78 89 80 Respiratory Rate Blood Pressure 101/57 L 104/66 Pulse Oximetry 100 96 04/23/18 15:37 04/23/18 15:45 04/23/18 16:00 Temperature 98.3 F 98.4 F 98.5 F Pulse Rate 66 67 64 Respiratory Rate 25 H 16 14 Blood Pressure 104/66 100/45 L 90/54 L Pulse Oximetry 100 100 04/23/18 16:15 04/23/18 16:17 04/23/18 16:30 Temperature 98.4 F Pulse Rate 60 60 59 L Respiratory Rate 23 16 22 Blood Pressure 103/52 L 103/52 L 107/52 L Pulse Oximetry 100 100 99 04/23/18 16:45 04/23/18 17:00 04/23/18 17:03 Temperature Pulse Rate 55 L 70 63 Respiratory Rate 18 Blood Pressure 97/50 L 92/53 L Pulse Oximetry 97 99 04/23/18 18:00 04/23/18 19:00 04/23/18 19:01 Temperature Pulse Rate 63 73 71 Respiratory Rate 31 H 32 H Blood Pressure 106/55 L 114/50 L Pulse Oximetry 100 96 100 04/23/18 20:00 04/23/18 20:20 04/23/18 21:00 Temperature 98 F Pulse Rate 75 74 Respiratory Rate 19 20 Blood Pressure 113/53 L 116/61 Pulse Oximetry 100 99 99 04/23/18 21:42 04/23/18 22:00 04/23/18 23:00 Temperature Pulse Rate 69 76 Respiratory Rate 15 15 21 Blood Pressure 110/52 L 113/56 L Pulse Oximetry 99 97 04/24/18 00:00 04/24/18 01:00 04/24/18 02:00 Temperature Pulse Rate 68 79 84 Respiratory Rate 20 20 17 Blood Pressure 109/51 L 119/58 L 135/64 Pulse Oximetry 97 100 99 04/24/18 03:00 04/24/18 04:00 04/24/18 05:00 Temperature Pulse Rate 78 83 91 H Respiratory Rate 17 17 31 H Blood Pressure 119/58 L 124/56 L Pulse Oximetry 97 98 96 04/24/18 05:01 04/24/18 05:25 04/24/18 06:00 Temperature Pulse Rate 88 83 Respiratory Rate 23 18 29 H Blood Pressure 120/56 L 118/52 L Pulse Oximetry 97 99 04/24/18 07:00 04/24/18 08:00 04/24/18 08:50 Temperature 98.9 F Pulse Rate 88 76 Respiratory Rate 24 18 Blood Pressure 123/60 118/56 L Pulse Oximetry 100 96 96 04/24/18 09:00 04/24/18 10:00 04/24/18 11:00 Temperature Pulse Rate 80 78 87 Respiratory Rate 18 20 25 H Blood Pressure 112/80 123/60 115/58 L Pulse Oximetry 98 96 94 L 04/24/18 12:00 Temperature Pulse Rate 73 Respiratory Rate 39 H Blood Pressure 112/57 L Pulse Oximetry 95 Intake & Output 04/23/18 04/24/18 04/24/18 18:59 06:59 18:59 Intake Total 3850 / 3850 3350 / 3350 1740 / 1740 Output Total 2100 / 2099 1875 / 1875 2050 / 2050 Balance 1750 / 1750 1475 / 1475 -310 / -310 Weight 59.5 kg Intake: IV 1200 / 1200 2100 / 2100 1060 / 1060 NS Inj 1,000 ML @ 84 mls/hr IV. 1000 / 1000 2000 / 2000 760 / 760 CONT .[id number] JANESSA Rx#:[id number] Cipro 200 MG/100 ML Inj 200 mg 100 / 100 100 / 100 In 100 ml @ 100 mls/hr IV.SIG Q12H JANESSA Rx#:[id number] Magnesium Sulfate 1 gm/D5W 100 100 / 100 200 / 200 ml Premix 100 ML @ 100 mls/hr IV.SIG Q1H JANESSA Rx#:[id number] Rocephin Inj 1,000 MG In NS Inj 100 / 100 100 ML @ 200 mls/hr IV.SIG Q24H JANESSA Rx#:[id number] Oral 2650 / 2650 1250 / 1250 680 / 680 Intake (Blood Product) Amt 0 / 0 Rbc As-3 Leukoreduced Unit 0 / 0 [id number] Output: Urine 1075 / 1075 1000 / 1000 1200 / 1200 Stool 850 / 850 Stool Amount (Stoma) 1025 / 1025 875 / 875 Pre-Hospital: Right Lower 1025 / 1025 875 / 875 Abdomen Other: # Voids 5 Date of Last Bowel Movement 04/22/18 04/24/18 04/24/18 - Routine Abdominal Exam Comments: soft, nontender, nondistended stoma pink, output very liquid - Urinary Catheter Management Straight Cath placed during this visit: no Reason for continuing: Not indwelling catheter Results - Labs CBC & Chem 7: 04/24/18 04:50 04/24/18 04:50 Laboratory Results - last 24 hr 04/23/18 04/23/18 04/23/18 13:20 17:12 21:18 WBC RBC Hgb Hct MCV MCH MCHC RDW Plt Count MPV Neut % (Auto) Lymph % (Auto) [place] % (Auto) Eos % (Auto) Baso % (Auto) Neut # (Auto) Lymph # (Auto) [place] # (Auto) Eos # (Auto) Baso # (Auto) WBC Differential Differential Comment Sodium Potassium Chloride Carbon Dioxide Anion Gap BUN Creatinine Estimated GFR POC Glucose 109 178 H Random Glucose Calcium Calcium Adj for Albumin Magnesium Albumin Blood Type O Positive Antibody Screen Negative MTS Gel Crossmatch See Detail 04/24/18 04/24/18 04/24/18 04:50 04:50 08:39 WBC 10.1 RBC 3.25 L Hgb 9.5 L Hct 27.7 L MCV 85.3 MCH 29.2 MCHC 34.3 RDW 19.3 H Plt Count 208 MPV 6.7 L Neut % (Auto) 68.8 Lymph % (Auto) 19.9 [place] % (Auto) 10.4 H Eos % (Auto) 0.6 Baso % (Auto) 0.3 Neut # (Auto) 7.0 Lymph # (Auto) 2.0 [place] # (Auto) 1.1 H Eos # (Auto) 0.1 Baso # (Auto) 0.0 WBC Differential . Differential Comment Auto diff final Sodium 139 Potassium 3.2 L Chloride 109 H Carbon Dioxide 22.9 Anion Gap 7 BUN 46 H Creatinine 2.06 H Estimated GFR 24 L POC Glucose 161 H Random Glucose 98 Calcium 7.2 L* Calcium Adj for Albumin 8.9 Magnesium 1.2 L Albumin 1.9 L Blood Type Antibody Screen MTS Gel Crossmatch Microbiology 04/21/18 23:35 Clean Catch Urine Urine Culture - Final Enterococcus faecalis 12/02/18 07:15 Stool Stool Occult Blood (BUFFY) - Final Hemoccult positive - Procedures none Assessment and Plan - Assessment (1) Dehydration Code(s): E86.0 - Dehydration Status: Acute Plan: d/c all laxatives, add imodium and fiber supplement (2) Dehydration Code(s): E86.0 - Dehydration Status: Acute (3) 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
[2018-04-24] MEDS ORDERED: Loperamide 2 MG Capsule PO ONE (13:34)
--- NOTE | 2018-04-24 16:11 | P.PNNP ---
Subjective Interval history: Patient with no complaints. Denies any shortness of breath, nausea, or vomiting. Creatinine continues to improve at 2.06 today,. <Odalys Orosco - Last Filed: 04/24/18 16:05> Physical Exam Vital signs: Vital Signs 04/23/18 16:15 04/23/18 16:17 04/23/18 16:30 Temperature 98.4 F Pulse Rate 60 60 59 L Respiratory Rate 23 16 22 Blood Pressure 103/52 L 103/52 L 107/52 L Pulse Oximetry 100 100 99 04/23/18 16:45 04/23/18 17:00 04/23/18 17:03 Temperature Pulse Rate 55 L 70 63 Respiratory Rate 18 Blood Pressure 97/50 L 92/53 L Pulse Oximetry 97 99 04/23/18 18:00 04/23/18 19:00 04/23/18 19:01 Temperature Pulse Rate 63 73 71 Respiratory Rate 31 H 32 H Blood Pressure 106/55 L 114/50 L Pulse Oximetry 100 96 100 04/23/18 20:00 04/23/18 20:20 04/23/18 21:00 Temperature 98 F Pulse Rate 75 74 Respiratory Rate 19 20 Blood Pressure 113/53 L 116/61 Pulse Oximetry 100 99 99 04/23/18 21:42 04/23/18 22:00 04/23/18 23:00 Temperature Pulse Rate 69 76 Respiratory Rate 15 15 21 Blood Pressure 110/52 L 113/56 L Pulse Oximetry 99 97 04/24/18 00:00 04/24/18 01:00 04/24/18 02:00 Temperature Pulse Rate 68 79 84 Respiratory Rate 20 20 17 Blood Pressure 109/51 L 119/58 L 135/64 Pulse Oximetry 97 100 99 04/24/18 03:00 04/24/18 04:00 04/24/18 05:00 Temperature Pulse Rate 78 83 91 H Respiratory Rate 17 17 31 H Blood Pressure 119/58 L 124/56 L Pulse Oximetry 97 98 96 04/24/18 05:01 04/24/18 05:25 04/24/18 06:00 Temperature Pulse Rate 88 83 Respiratory Rate 23 18 29 H Blood Pressure 120/56 L 118/52 L Pulse Oximetry 97 99 04/24/18 07:00 04/24/18 08:00 04/24/18 08:50 Temperature 98.9 F Pulse Rate 88 76 Respiratory Rate 24 18 Blood Pressure 123/60 118/56 L Pulse Oximetry 100 96 96 04/24/18 09:00 04/24/18 10:00 04/24/18 11:00 Temperature Pulse Rate 80 78 87 Respiratory Rate 18 20 25 H Blood Pressure 112/80 123/60 115/58 L Pulse Oximetry 98 96 94 L 04/24/18 12:00 Temperature Pulse Rate 73 Respiratory Rate 39 H Blood Pressure 112/57 L Pulse Oximetry 95 Intake & Output 04/23/18 04/24/18 04/24/18 18:59 06:59 18:59 Intake Total 3850 / 3850 3350 / 3350 1740 / 1740 Output Total 2100 / 2100 1875 / 1875 2050 / 2050 Balance 1750 / 1750 1475 / 1475 -310 / -310 Weight 59.5 kg Intake: IV 1200 / 1200 2100 / 2100 1060 / 1060 NS Inj 1,000 ML @ 84 mls/hr IV. 1000 / 1000 2000 / 2000 760 / 760 CONT .[id number] JANESSA Rx#:[id number] Cipro 200 MG/100 ML Inj 200 mg 100 / 100 100 / 100 In 100 ml @ 100 mls/hr IV.SIG Q12H JANESSA Rx#:[id number] Magnesium Sulfate 1 gm/D5W 100 100 / 100 200 / 200 ml Premix 100 ML @ 100 mls/hr IV.SIG Q1H JANESSA Rx#:[id number] Rocephin Inj 1,000 MG In NS Inj 100 / 100 100 ML @ 200 mls/hr IV.SIG Q24H JANESSA Rx#:[id number] Oral 2650 / 2650 1250 / 1250 680 / 680 Intake (Blood Product) Amt 0 / 0 Rbc As-3 Leukoreduced Unit 0 / 0 [id number] Output: Urine 1075 / 1075 1000 / 1000 1200 / 1200 Stool 850 / 850 Stool Amount (Stoma) 1025 / 1025 875 / 875 Pre-Hospital: Right Lower 1025 / 1025 875 / 875 Abdomen Other: # Voids 5 Date of Last Bowel Movement 04/22/18 04/24/18 04/24/18 Narrative: GEN: Lying in bed, no acute distress RESP: CTA bilaterally. No accessory muscle use CVS: RRR, S1, S2. No murmur GI: soft, normoactive bowel sounds, tenderness, ostomy. EXT:cyanosis, clubbing, no edema SKIN: Dry no cyanosis - Urinary Catheter Management Straight Cath placed during this visit: no Reason for continuing: Not indwelling catheter <Odalys Orosco - Last Filed: 04/24/18 16:05> Vital signs: Vital Signs 04/23/18 18:00 04/23/18 19:00 04/23/18 19:01 Temperature Pulse Rate 63 73 71 Respiratory Rate 31 H 32 H Blood Pressure 106/55 L 114/50 L Pulse Oximetry 100 96 100 04/23/18 20:00 04/23/18 20:20 04/23/18 21:00 Temperature 98 F Pulse Rate 75 74 Respiratory Rate 19 20 Blood Pressure 113/53 L 116/61 Pulse Oximetry 100 99 99 04/23/18 21:42 04/23/18 22:00 04/23/18 23:00 Temperature Pulse Rate 69 76 Respiratory Rate 15 15 21 Blood Pressure 110/52 L 113/56 L Pulse Oximetry 99 97 04/24/18 00:00 04/24/18 01:00 04/24/18 02:00 Temperature Pulse Rate 68 79 84 Respiratory Rate 20 20 17 Blood Pressure 109/51 L 119/58 L 135/64 Pulse Oximetry 97 100 99 04/24/18 03:00 04/24/18 04:00 04/24/18 05:00 Temperature Pulse Rate 78 83 91 H Respiratory Rate 17 17 31 H Blood Pressure 119/58 L 124/56 L Pulse Oximetry 97 98 96 04/24/18 05:01 04/24/18 05:25 04/24/18 06:00 Temperature Pulse Rate 88 83 Respiratory Rate 23 18 29 H Blood Pressure 120/56 L 118/52 L Pulse Oximetry 97 99 04/24/18 07:00 04/24/18 08:00 04/24/18 08:50 Temperature 98.9 F Pulse Rate 88 76 Respiratory Rate 24 18 Blood Pressure 123/60 118/56 L Pulse Oximetry 100 96 96 04/24/18 09:00 04/24/18 10:00 04/24/18 11:00 Temperature Pulse Rate 80 78 87 Respiratory Rate 18 20 25 H Blood Pressure 112/80 123/60 115/58 L Pulse Oximetry 98 96 94 L 04/24/18 12:00 Temperature Pulse Rate 73 Respiratory Rate 39 H Blood Pressure 112/57 L Pulse Oximetry 95 Intake & Output 04/23/18 04/24/18 04/24/18 18:59 06:59 18:59 Intake Total 3850 / 3850 3350 / 3350 1740 / 1740 Output Total 2099 / 2099 1875 / 1875 2050 / 2050 Balance 1750 / 1750 1475 / 1475 -310 / -310 Weight 59.5 kg Intake: IV 1200 / 1200 2100 / 2100 1060 / 1060 NS Inj 1,000 ML @ 84 mls/hr IV. 1000 / 1000 2000 / 2000 760 / 760 CONT .[id number] JANESSA Rx#:[id number] Cipro 200 MG/100 ML Inj 200 mg 100 / 100 100 / 100 In 100 ml @ 100 mls/hr IV.SIG Q12H JANESSA Rx#:[id number] Magnesium Sulfate 1 gm/D5W 100 100 / 100 200 / 200 ml Premix 100 ML @ 100 mls/hr IV.SIG Q1H JANESSA Rx#:[id number] Rocephin Inj 1,000 MG In NS Inj 100 / 100 100 ML @ 200 mls/hr IV.SIG Q24H JANESSA Rx#:[id number] Oral 2650 / 2650 1250 / 1250 680 / 680 Intake (Blood Product) Amt 0 / 0 Rbc As-3 Leukoreduced Unit 0 / 0 [id number] Output: Urine 1075 / 1075 1000 / 1000 1200 / 1200 Stool 850 / 850 Stool Amount (Stoma) 1025 / 1025 875 / 875 Pre-Hospital: Right Lower 1025 / 1025 875 / 875 Abdomen Other: # Voids 5 Date of Last Bowel Movement 04/22/18 04/24/18 04/24/18 - Urinary Catheter Management Straight Cath placed during this visit: no <Violette Ford - Last Filed: 04/24/18 17:28> Assessment and Plan - Assessment (1) Acute kidney failure Code(s): N17.9 - Acute kidney failure, unspecified Status: Acute (2) Abdominal wall mass of epigastric region Code(s): R19.06 - Epigastric swelling, mass or lump Status: Acute (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 BUN was much higher, most likely has an element of dehydration with possibility of acute tubular necrosis. Also, she has hyponatremia, which is probably contributed by decreased oral intake. The CT scan did not show any obstruction. Continue the IV fluid, oral fluid encouraged On ciprofloxacin, renal dose as appropriate Avoid nephrotoxins as possible Hypokalemia, replacement given, Magnesium level low and replacement has been given. Will continue to monitor UOP and BMP awaiting the urine culture. 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 Creatinine continue to improve, K was low and replaced. Continue IVF and encourage oral intake. <Violette Ford - Last Filed: 04/24/18 17:28>
[2018-04-24] MEDS: Psyllium Fiber SF/GF 6 GM Packet PO SCH (18:36)
[2018-04-24] MEDS ORDERED: Loperamide 2 MG Capsule PO PRN (23:00)
[2018-04-25] MEDS: Sod Chloride 0.9% Inj 1,000 ML IV.CONT SCH ×3 (03:54→16:42)
[2018-04-25] MEDS: Chlorhexidine Gluconate 2% 1 Pack (2 Cloths) TOPICAL SCH (03:55)
[2018-04-25] MEDS: Morphine Sulfate Inj 2 MG/ML Vial IV.PUSH PRN (06:38)
[2018-04-25] MEDS: Insulin NovoLOG Aspart Correctional Sugar Inj SQ SCH ×4 (07:07→20:19)
[2018-04-25 07:22] LABS: Baso % (Auto) 0.5 % (0.0-2.0); Eos # (Auto) 0.1 th/mm3 (0.0-0.4); Eos % (Auto) 1.1 % (0.0-4.0); Hematocrit 26.1 % (35.0-46.0); Hemoglobin 9.1 gm/dL (11.6-15.3); Lymph # (Auto) 2.3 th/mm3 (1.0-4.8); Lymph % (Auto) 24.5 % (9.0-44.0); Mean Corpuscular HGB Conc 34.7 % (32.0-36.0); Mean Corpuscular Hemoglobin 29.7 pg (27.0-34.0); Mean Corpuscular Volume 85.8 fL (80.0-100.0); Mean Platelet Volume 6.5 fL (7.0-11.0); Mono # (Auto) 0.9 th/mm3 (0.0-0.9); Mono % (Auto) 10.2 % (0.0-8.0); Neut # (Auto) 5.9 th/mm3 (1.8-7.7); Neut % (Auto) 63.7 % (16.0-70.0); Platelet Count 185 th/mm3 (150-450); Red Blood Count 3.05 mil/mm3 (4.00-5.30); Red Cell Distribution Width 19.2 % (11.6-17.2); White Blood Count 9.3 th/mm3 (4.0-11.0)
[2018-04-25] MEDS: Heparin - SQ 10,000 UNITS/ML Vial SQ SCH ×2 (09:16→20:15)
[2018-04-25] MEDS: Ferrous Sulfate 325 MG Tablet PO SCH (09:17)
[2018-04-25] MEDS: Psyllium Fiber SF/GF 6 GM Packet PO SCH (09:17)
[2018-04-25] MEDS: Ciprofloxacin 200 MG/100 ML 200 MG/100 ML PIGGYBACK IV.SIG SCH (09:24)
--- NOTE | 2018-04-25 09:54 | P.PNNP ---
Subjective Interval history: Resting comfortably without complaints. Patient was seen in AM. Creatinine continues to improve at 1.30 today. <Odalys Orosco - Last Filed: 04/25/18 15:12> Physical Exam Vital signs: Vital Signs 04/24/18 10:00 04/24/18 11:00 04/24/18 12:00 Temperature Pulse Rate 78 87 73 Respiratory Rate 20 25 H 39 H Blood Pressure 123/60 115/58 L 112/57 L Pulse Oximetry 96 94 L 95 04/24/18 16:00 04/24/18 20:00 04/24/18 23:46 Temperature 98.0 F 98.4 F 98.2 F Pulse Rate 85 76 69 Respiratory Rate 16 19 19 Blood Pressure 122/57 L 133/55 L 121/60 Pulse Oximetry 97 98 99 04/25/18 00:27 Temperature Pulse Rate Respiratory Rate 17 Blood Pressure Pulse Oximetry Intake & Output 04/24/18 04/25/18 04/25/18 18:59 06:59 18:59 Intake Total 1740 / 1740 3050 / 3050 Output Total 2050 / 2050 1750 / 1750 Balance -310 / -310 1300 / 1300 Weight 57.8 kg Intake: IV 1060 / 1060 2350 / 2350 NS Inj 1,000 ML @ 84 mls/hr IV. 760 / 760 2000 / 1999 CONT .[id number] JANESSA Rx#:[id number] Cipro 200 MG/100 ML Inj 200 mg 100 / 100 100 / 100 In 100 ml @ 100 mls/hr IV.SIG Q12H JANESSA Rx#:[id number] Magnesium Sulfate 1 gm/D5W 100 200 / 200 ml Premix 100 ML @ 100 mls/hr IV.SIG Q1H JANESSA Rx#:[id number] Oral 680 / 680 700 / 700 Output: Urine 1200 / 1200 Stool 850 / 850 Stool Amount (Stoma) 1750 / 1750 Pre-Hospital: Right Lower 1750 / 1750 Abdomen Other: # Voids 3 Date of Last Bowel Movement 04/24/18 04/24/18 Narrative: GENERAL: Alert and oriented. SKIN: Warm and dry. NECK: Supple, trachea midline. No JVD . CARDIOVASCULAR: Regular rate and rhythm without murmurs, gallops, or rubs. Infusa port RESPIRATORY: Breath sounds equal bilaterally. No accessory muscle use. GASTROINTESTINAL: Abdomen soft, non-tender, nondistended. Colostomy site with brown stool MUSCULOSKELETAL: No cyanosis, or edema. BACK: Nontender without obvious deformity. No CVA tenderness. - Urinary Catheter Management Straight Cath placed during this visit: no Reason for continuing: Not indwelling catheter <Odalys Orosco - Last Filed: 04/25/18 15:12> Vital signs: Vital Signs 04/25/18 20:00 04/26/18 00:00 04/26/18 08:00 Temperature 97.7 F 98.0 F 97.6 F Pulse Rate 75 67 99 H Respiratory Rate 16 17 18 Blood Pressure 121/58 L 124/58 L 138/65 Pulse Oximetry 99 99 95 04/26/18 12:00 04/26/18 16:00 Temperature 97.6 F 97.7 F Pulse Rate 69 72 Respiratory Rate 20 18 Blood Pressure 124/62 125/65 Pulse Oximetry 100 100 Intake & Output 04/25/18 04/26/18 04/26/18 18:59 06:59 18:59 Intake Total 1000 / 1000 900 / 900 Output Total 1000 / 1000 Balance 1000 / 1000 -100 / -100 Weight 57.8 kg Intake: IV 1000 / 1000 300 / 300 NS Inj 1,000 ML @ 84 mls/hr IV. 1000 / 1000 CONT .[id number] JANESSA Rx#:[id number] Cipro 200 MG/100 ML Inj 200 mg 100 / 100 In 100 ml @ 100 mls/hr IV.SIG Q12H JANESSA Rx#:[id number] Magnesium Sulfate 1 gm/D5W 100 200 / 200 ml Premix 100 ML @ 100 mls/hr IV.SIG Q1H JANESSA Rx#:[id number] Oral 600 / 600 Output: Stool Amount (Stoma) 1000 / 1000 Pre-Hospital: Right Lower 1000 / 1000 Abdomen Other: # Voids 3 Date of Last Bowel Movement 04/24/18 04/25/18 04/26/18 - Urinary Catheter Management Straight Cath placed during this visit: no <Violette Ford - Last Filed: 04/26/18 18:13> Assessment and Plan - Assessment (1) Acute kidney failure Code(s): N17.9 - Acute kidney failure, unspecified Status: Acute (2) Abdominal wall mass of epigastric region Code(s): R19.06 - Epigastric swelling, mass or lump Status: Acute (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 BUN was much higher, most likely has an element of dehydration with possibility of acute tubular necrosis. Also, she has hyponatremia, which is probably contributed by decreased oral intake. The CT scan did not show any obstruction. On IVF patient is taking in adequate oral fluids and creatinine has continues to improve, will discontinue On ciprofloxacin, renal dose as appropriate Avoid nephrotoxins as possible Hypokalemia, replacement given. 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 Patient with JUSTINO , most likely has pre renal and possible ATN. Avoid Nephrotoxins. <Violette Ford - Last Filed: 04/26/18 18:13>
--- NOTE | 2018-04-25 10:59 | P.PN ---
Subjective Interval history: Follow-up acute kidney injury and high ileostomy output. Urine output 1200 mL stool 850 mL +1200 mL fluid balance. She continues to feel better Physical Exam Vital signs: Vital Signs 04/24/18 11:00 04/24/18 12:00 04/24/18 16:00 Temperature 98.0 F Pulse Rate 87 73 85 Respiratory Rate 25 H 39 H 16 Blood Pressure 115/58 L 112/57 L 122/57 L Pulse Oximetry 94 L 95 97 04/24/18 20:00 04/24/18 23:46 04/25/18 00:27 Temperature 98.4 F 98.2 F Pulse Rate 76 69 Respiratory Rate 19 19 17 Blood Pressure 133/55 L 121/60 Pulse Oximetry 98 99 Intake & Output 04/24/18 04/25/18 04/25/18 18:59 06:59 18:59 Intake Total 1740 / 1740 3050 / 3050 Output Total 2050 / 2050 1750 / 1750 Balance -310 / -310 1300 / 1300 Weight 57.8 kg Intake: IV 1060 / 1060 2350 / 2350 NS Inj 1,000 ML @ 84 mls/hr IV. 760 / 760 2000 / 1999 CONT .[id number] JANESSA Rx#:[id number] Cipro 200 MG/100 ML Inj 200 mg 100 / 100 100 / 100 In 100 ml @ 100 mls/hr IV.SIG Q12H JANESSA Rx#:[id number] Magnesium Sulfate 1 gm/D5W 100 200 / 200 ml Premix 100 ML @ 100 mls/hr IV.SIG Q1H JANESSA Rx#:[id number] Oral 680 / 680 700 / 700 Output: Urine 1200 / 1200 Stool 850 / 850 Stool Amount (Stoma) 1750 / 1750 Pre-Hospital: Right Lower 1750 / 1750 Abdomen Other: # Voids 3 Date of Last Bowel Movement 04/24/18 04/24/18 Narrative: GEN: Lying in bed, no acute distress RESP: CTA bilaterally. No accessory muscle use CVS: RRR, S1, S2. No murmur GI: soft, normoactive bowel sounds, tenderness, ostomy. EXT:cyanosis, clubbing, no edema SKIN: Dry no cyanosis - Urinary Catheter Management Straight Cath placed during this visit: no Reason for continuing: Not indwelling catheter Results - Labs CBC & Chem 7: 04/25/18 07:00 04/25/18 13:00 Laboratory Results - last 24 hr 04/25/18 07:00 WBC 9.3 RBC 3.05 L Hgb 9.1 L Hct 26.1 L MCV 85.8 MCH 29.7 MCHC 34.7 RDW 19.2 H Plt Count 185 MPV 6.5 L Neut % (Auto) 63.7 Lymph % (Auto) 24.5 Faulk % (Auto) 10.2 H Eos % (Auto) 1.1 Baso % (Auto) 0.5 Neut # (Auto) 5.9 Lymph # (Auto) 2.3 Faulk # (Auto) 0.9 Eos # (Auto) 0.1 Baso # (Auto) 0.0 WBC Differential . Differential Comment Auto diff final - Imaging ITS Impressions Chest X-Ray 04/21/18 18:19 CONCLUSION: No acute intrathoracic disease. Stable examination. Abdomen/Pelvis CT 04/21/18 20:10 CONCLUSION: 1. Interval increase in the size of the mass previously noted adjacent to the gallbladder which now measures up to 4.2 x 3.5 cm in diameter. 2. The previously noted large pelvic mass is no longer visualized. There is a smaller masslike structure now noted in the presacral region. 3. Interval postsurgical changes status post partial colectomy. The bowel loops are poorly visualized and evaluated due to lack of intravenous and oral contrast. Mesenteric masses may be obscured. 4. Colectomy in the right lower quadrant. - Procedures none Assessment and Plan - Plan Neuro/Psych: Acetaminophen 650 mg by mouth every 6 hours as needed fever Hydrocodone/acetaminophen 5/325 -1 tablet every 4 hours as needed pain 1 through 5 Morphine sulfate 2 mg IV every 2 hours as needed CV: Currently not requiring vasopressors and/or antihypertensives EKG revealed no peak T waves. Decrease NS 84 cc an hour. Transient low BP from pain medicine, resolved Resp: Nasal cannula to maintain saturations greater than or equal to 92% Incentive spirometry while awake As needed albuterol aerosols every 2 hours as needed GI: Severe protein calorie malnutrition Recent exploratory laparotomy with extensive removal of intraperitoneal tumor including resection of large pelvic mass from right ovary, hysterectomy, bilateral salpingo-fragment, multifocal intense resection with primary anastomosis, intraperitoneal tumor cytoreduction and diverting ileostomy. Dr. Dalton. High ileostomy output Discontinue bowel regimen. Imodium as needed CT abdomen/pelvis-interval increase in the size of the mass previously noted adjacent to the gallbladder which now measures up to 4.2 x 3.5 cm in diameter. The previously noted large pelvic mass is no longer visualized. There is a smaller masslike structure now noted in the presacral region. CRS and Onc following. Poor performance status at this time. Op PET Endo: Sliding scale insulin Accu-Cheks to maintain euglycemia. TSH therapeutic. Cortisol 23 Renal: Acute kidney injury. Improving Renal consulted. 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 Improved Normocytic normochromic anemia. Improved after packed RBC transfusion Monitor CBC daily. Follow trends. + Hemoccult stool (CRS following). Coags within normal limits CT abdomen/pelvis-as above Dr. Walsh consulted ID: Enterococcus faecalis UTI with sepsis, POA Switch to Cipro FEN: Hyponatremia. Improving Hyperkalemia now hypokalemia, persistent secondary to ongoing diarrhea Hypochloremia. Improved Hypomagnesemia Hypoalbuminemia Hyponatremia is most likely from sev dehydration Received D50/insulin/bicarbonate and calcium gluconate and Kayexalate in ED. Now potassium normalized Received 1 L normal saline in ED. 2L bolus now Pending labs today. Repeat electrolytes in the morning MSK: PT evaluate and treat Access -Okay to utilize left Port-A-Cath. Peripheral IVs. Prophylaxis -GI -pantoprazole -DVT -SCD/heparin subcu Discharge Planning: Refusing rehAb, needs walker. Discharge when cleared by CRS and nephrology
[2018-04-25 14:02] LABS: Calcium 7.3 mg/dL (8.5-10.1); Carbon Dioxide 22.6 meq/L (21.0-32.0); Magnesium 1.2 mg/dL (1.5-2.5); Potassium 3.2 meq/L (3.5-5.1)
[2018-04-25 14:18] LABS: Albumin 1.9 g/dL (3.4-5.0)
--- NOTE | 2018-04-25 17:30 | P.DIET ---
Nutritional Evaluation Type of nutrition evaluation: initial Nutrition screening: [facility] Screening comments: 04/25/18 [facility] Diet Education 04/24/18 [facility] Education re: ileostomy Subjective Subjective Comments: Pt is known to me from previous admission here. Pt has concerns and questions regarding her nutrition after discharge. Objective - Diagnosis Acute Kidney Failure, hyperkalemia, hyponatremia - Objective % IBW: 86 Body Weight Used for Calculations: Actual (49 kg) Energy Needs - Lower Range (kCal/kg): 30 Energy Needs - Upper Range (kCal/kg): 35 Lower Limit kCal/kg (kCals): 1,470 Upper Limit kCal/kg (kCals): 1,715 Lower Limit Protein Factor (Grams per Kg): 1.2 Upper Limit Protein Factor (Grams per Kg): 1.5 Lower Protein Needs (Protein): 59 Upper Protein Needs (Protein): 74 Dietitian Reviewed in Medical Record: Current diet, Curent medications, Intake & Output, Labs, Medical history Diet Order: Regular Oral Diet Intake Amount: Good 75-90% Objective Comments: PMH includes: abdominal mass, colon cancer, h/o pelvic mass, h/o chemotherapy, hydroneprosis, migraines, mucinous adenocarcinoma of colon, s/p recent diverting colostomy Labs include: Creatinine 1.20, estGFR 41 UOP +1200ml, Stool +850ml Assessment Assessment: Pt is at nutritional risk r/t recent clinical course. Adequate po intake. Pt provided w/Nutrition Education for ileostomy and meeting nutritional needs w/ small nutrient dense meals daily. Pt's questions answered to her satisfaction. RD contact info provided for additional questions as needed. Recommendations: 1. Pt provided w/Nutrition Education for ileostomy and meeting nutritional needs w/small nutrient dense meals daily 2. Pt's questions answered to her satisfaction 3. RD contact info provided for additional questions as needed
[2018-04-25] MEDS ORDERED: Ciprofloxacin 250 MG Tablet PO SCH (18:00)
--- NOTE | 2018-04-25 18:03 | P.DCO ---
- Diagnosis (1) Acute kidney failure Status: Acute - Physical Therapy Order: Evaluate and treat, Improve ambulation, Strength and gait training - Case Management Consult Case Management Consult-Home Health: Yes - Certification I have seen patient Idalia Davis on 04/25/18. My clinical findings support the need for the requested home health care services because: Deconditioned with increased weakness I certify that my clinical findings support that this patient is homebound because: Unsafe to leave home unassisted, Need for psychosocial assistance
[2018-04-25] MEDS: Ciprofloxacin 250 MG Tablet PO SCH (20:14)
[2018-04-25] MEDS: Mag Sulf 1 gm/100 ml Premix 100 ML IV.SIG SCH ×2 (20:15→20:24)
[2018-04-26] MEDS: Chlorhexidine Gluconate 2% 1 Pack (2 Cloths) TOPICAL SCH (03:02)
[2018-04-26 07:23] LABS: Albumin 1.9 g/dL (3.4-5.0); Calcium 7.9 mg/dL (8.5-10.1); Carbon Dioxide 24.9 meq/L (21.0-32.0); Phosphorus 1.3 mg/dL (2.5-4.9); Potassium 3.1 meq/L (3.5-5.1)
[2018-04-26] MEDS: Ferrous Sulfate 325 MG Tablet PO SCH (09:08)
[2018-04-26] MEDS: Ciprofloxacin 250 MG Tablet PO SCH ×2 (09:08→22:07)
[2018-04-26] MEDS: Heparin - SQ 10,000 UNITS/ML Vial SQ SCH ×2 (09:09→22:06)
--- NOTE | 2018-04-26 10:49 | P.PNIM ---
Subjective Interval history: in no acute distress. looks comfortable with no reported abdominal pain. no fever. Physical Exam Vital signs: Vital Signs 04/25/18 12:00 04/25/18 16:00 04/25/18 20:00 Temperature 97.6 F 98.0 F 97.7 F Pulse Rate 77 81 75 Respiratory Rate 19 17 16 Blood Pressure 156/79 H 139/75 121/58 L Pulse Oximetry 100 100 99 04/26/18 00:00 04/26/18 08:00 Temperature 98.0 F 97.6 F Pulse Rate 67 99 H Respiratory Rate 17 18 Blood Pressure 124/58 L 138/65 Pulse Oximetry 99 95 Intake & Output 04/25/18 04/26/18 04/26/18 18:59 06:59 18:59 Intake Total 1000 / 1000 900 / 900 Output Total 1000 / 1000 Balance 1000 / 1000 -100 / -100 Weight 57.8 kg Intake: IV 1000 / 1000 300 / 300 NS Inj 1,000 ML @ 84 mls/hr IV. 1000 / 1000 CONT .[id number] JANESSA Rx#:[id number] Cipro 200 MG/100 ML Inj 200 mg 100 / 100 In 100 ml @ 100 mls/hr IV.SIG Q12H JANESSA Rx#:[id number] Magnesium Sulfate 1 gm/D5W 100 200 / 200 ml Premix 100 ML @ 100 mls/hr IV.SIG Q1H JANESSA Rx#:[id number] Oral 600 / 600 Output: Stool Amount (Stoma) 1000 / 1000 Pre-Hospital: Right Lower 1000 / 1000 Abdomen Other: # Voids 3 Date of Last Bowel Movement 04/24/18 04/25/18 - Constitutional no acute distress - Routine Respiratory Exam Present: CTA bilaterally - Routine Cardiovascular Exam Present: RRR - Routine Abdominal Exam Present: soft - Routine Extremities Exam Comments: no pedal edema. - Routine Neurological Exam Present: alert, oriented X3 - Urinary Catheter Management Straight Cath placed during this visit: no Reason for continuing: Not indwelling catheter Results - Labs CBC & Chem 7: 04/25/18 07:00 04/26/18 06:30 Laboratory Results - last 24 hr 04/25/18 04/26/18 13:00 06:30 Sodium 138 138 Potassium 3.2 L 3.1 L Chloride 107 107 Carbon Dioxide 22.6 24.9 Anion Gap 8 6 BUN 17 11 Creatinine 1.30 H 1.20 H Estimated GFR 41 L 45 L Random Glucose 103 80 Calcium 7.3 L* 7.9 L Calcium Adj for Albumin 9.0 Phosphorus 1.3 L Magnesium 1.2 L Albumin 1.9 L 1.9 L - Procedures none Assessment and Plan - Assessment (1) Acute kidney failure Code(s): N17.9 - Acute kidney failure, unspecified Status: Acute - Plan Severe protein calorie malnutrition Recent exploratory laparotomy with extensive removal of intraperitoneal tumor including resection of large pelvic mass from right ovary, hysterectomy, bilateral salpingo-fragment, multifocal intense resection with primary anastomosis, intraperitoneal tumor cytoreduction and diverting ileostomy. Dr. Dalton. High ileostomy output Discontinued bowel regimen. Imodium as needed CT abdomen/pelvis-interval increase in the size of the mass previously noted adjacent to the gallbladder which now measures up to 4.2 x 3.5 cm in diameter. The previously noted large pelvic mass is no longer visualized. There is a smaller masslike structure now noted in the presacral region. CRS and Onc following. Poor performance status at this time. Op PET Acute kidney injury. Improving hypokalemia/hypophosphatemia Renal consulted. Most likely from dehydration CT abdomen/pelvis as above Monitor urine output Accurate I's and O's ct IVF Avoid nephrotoxic medication replace electrolytes as needed. 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 Improved Normocytic normochromic anemia. Improved after packed RBC transfusion + Hemoccult stool (CRS following). Coags within normal limits CT abdomen/pelvis-as above Dr. Walsh consulted Enterococcus faecalis UTI with sepsis Switched to Cipro PT evaluate and treat Access -Okay to utilize left Port-A-Cath. Peripheral IVs. Prophylaxis -GI -pantoprazole -DVT -SCD/heparin subcu Discharge Planning: home with [facility]; within the next 24 hrs -when cleared by oncology and colorectal surgery.
[2018-04-26] MEDS: Insulin NovoLOG Aspart Correctional Sugar Inj SQ SCH ×4 (11:30→22:07)
[2018-04-26] MEDS: Psyllium Fiber SF/GF 6 GM Packet PO SCH (11:30)
--- NOTE | 2018-04-26 11:33 | P.PNNP ---
Subjective Interval history: Patient is doing well with no complaints. Denies any shortness of breath, chest pain, nausea, or vomiting. Creatinine continues to improve 1.2. <Odalys Orosco - Last Filed: 04/26/18 15:14> Physical Exam Vital signs: Vital Signs 04/25/18 12:00 04/25/18 16:00 04/25/18 20:00 Temperature 97.6 F 98.0 F 97.7 F Pulse Rate 77 81 75 Respiratory Rate 19 17 16 Blood Pressure 156/79 H 139/75 121/58 L Pulse Oximetry 100 100 99 04/26/18 00:00 04/26/18 08:00 Temperature 98.0 F 97.6 F Pulse Rate 67 99 H Respiratory Rate 17 18 Blood Pressure 124/58 L 138/65 Pulse Oximetry 99 95 Intake & Output 04/25/18 04/26/18 04/26/18 18:59 06:59 18:59 Intake Total 1000 / 1000 900 / 900 Output Total 1000 / 1000 Balance 1000 / 1000 -100 / -100 Weight 57.8 kg Intake: IV 1000 / 1000 300 / 300 NS Inj 1,000 ML @ 84 mls/hr IV. 1000 / 1000 CONT .[id number] JANESSA Rx#:[id number] Cipro 200 MG/100 ML Inj 200 mg 100 / 100 In 100 ml @ 100 mls/hr IV.SIG Q12H JANESSA Rx#:[id number] Magnesium Sulfate 1 gm/D5W 100 200 / 200 ml Premix 100 ML @ 100 mls/hr IV.SIG Q1H JANESSA Rx#:[id number] Oral 600 / 600 Output: Stool Amount (Stoma) 1000 / 1000 Pre-Hospital: Right Lower 1000 / 1000 Abdomen Other: # Voids 3 Date of Last Bowel Movement 04/24/18 04/25/18 Narrative: GEN: Lying in bed, no acute distress RESP: CTA bilaterally. No accessory muscle use CVS: RRR, S1, S2. No murmur GI: soft, normoactive bowel sounds, tenderness, ostomy. EXT:cyanosis, clubbing, no edema SKIN: Dry no cyanosis - Urinary Catheter Management Straight Cath placed during this visit: no Reason for continuing: Not indwelling catheter <Odalys Orosco - Last Filed: 04/26/18 15:14> Vital signs: Vital Signs 04/25/18 20:00 04/26/18 00:00 04/26/18 08:00 Temperature 97.7 F 98.0 F 97.6 F Pulse Rate 75 67 99 H Respiratory Rate 16 17 18 Blood Pressure 121/58 L 124/58 L 138/65 Pulse Oximetry 99 99 95 04/26/18 12:00 04/26/18 16:00 Temperature 97.6 F 97.7 F Pulse Rate 69 72 Respiratory Rate 20 18 Blood Pressure 124/62 125/65 Pulse Oximetry 100 100 Intake & Output 04/25/18 04/26/18 04/26/18 18:59 06:59 18:59 Intake Total 1000 / 1000 900 / 900 Output Total 1000 / 1000 Balance 1000 / 1000 -100 / -100 Weight 57.8 kg Intake: IV 1000 / 1000 300 / 300 NS Inj 1,000 ML @ 84 mls/hr IV. 1000 / 1000 CONT .[id number] JANESSA Rx#:[id number] Cipro 200 MG/100 ML Inj 200 mg 100 / 100 In 100 ml @ 100 mls/hr IV.SIG Q12H JANESSA Rx#:[id number] Magnesium Sulfate 1 gm/D5W 100 200 / 200 ml Premix 100 ML @ 100 mls/hr IV.SIG Q1H JANESSA Rx#:[id number] Oral 600 / 600 Output: Stool Amount (Stoma) 1000 / 1000 Pre-Hospital: Right Lower 1000 / 1000 Abdomen Other: # Voids 3 Date of Last Bowel Movement 04/24/18 04/25/18 04/26/18 - Urinary Catheter Management Straight Cath placed during this visit: no <Violette Ford - Last Filed: 04/26/18 18:40> Assessment and Plan - Assessment (1) Acute kidney failure Code(s): N17.9 - Acute kidney failure, unspecified Status: Acute (2) Abdominal wall mass of epigastric region Code(s): R19.06 - Epigastric swelling, mass or lump Status: Acute (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 BUN was much higher, most likely has an element of dehydration with possibility of acute tubular necrosis. Also, she has hyponatremia, which is probably contributed by decreased oral intake. The CT scan did not show any obstruction. Avoid nephrotoxins as possible Hypokalemia, replacement given. With improvement in creatinine Nephrology will sign off. <Odalys Orosco - Last Filed: 04/26/18 15:14> - Assessment (1) Acute kidney failure Code(s): N17.9 - Acute kidney failure, unspecified Status: Acute (2) Abdominal wall mass of epigastric region Code(s): R19.06 - Epigastric swelling, mass or lump Status: Acute (3) Mucinous adenocarcinoma Code(s): C80.1 - Malignant (primary) neoplasm, unspecified Status: Acute (4) Electrolyte abnormality Code(s): E87.8 - Other disorders of electrolyte and fluid balance, not elsewhere classified Status: Acute (5) Local recurrence of malignant neoplasm of colon Code(s): C18.9 - Malignant neoplasm of colon, unspecified Status: Acute (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 Creatinine improve and now 1.2, K is low and replaced. Will sign off and see PRN if needed. <Violette Ford - Last Filed: 04/26/18 18:40>
[2018-04-26] MEDS: Potassium Phos/Sodium Phos 250 MG Tablet PO SCH ×2 (12:28→18:07)
[2018-04-27 07:16] LABS: Calcium 8.1 mg/dL (8.5-10.1); Carbon Dioxide 25.8 meq/L (21.0-32.0); Phosphorus 1.2 mg/dL (2.5-4.9); Potassium 3.9 meq/L (3.5-5.1)
[2018-04-27] MEDS: Insulin NovoLOG Aspart Correctional Sugar Inj SQ SCH ×2 (07:53→16:00)
[2018-04-27 08:30] VITALS: BP 143/70; PULSE 100; RESP 17; TEMP 98; O2SAT 97
[2018-04-27] MEDS: Ferrous Sulfate 325 MG Tablet PO SCH (09:16)
[2018-04-27] MEDS: Heparin - SQ 10,000 UNITS/ML Vial SQ SCH (09:16)
[2018-04-27] MEDS: Potassium Phos/Sodium Phos 250 MG Tablet PO SCH (09:16)
[2018-04-27] MEDS: Psyllium Fiber SF/GF 6 GM Packet PO SCH (09:17)
[2018-04-27] MEDS: Ciprofloxacin 250 MG Tablet PO SCH (09:17)
--- NOTE | 2018-04-27 10:13 | P.PNIM ---
Subjective Interval history: in no acute distress. no new complaints. wants to go home today. Physical Exam Vital signs: Vital Signs 04/26/18 12:00 04/26/18 16:00 04/26/18 20:00 Temperature 97.6 F 97.7 F 97.5 F L Pulse Rate 69 72 82 Respiratory Rate 20 18 18 Blood Pressure 124/62 125/65 141/68 H Pulse Oximetry 100 100 100 04/27/18 00:00 04/27/18 08:00 Temperature 98.3 F 98.0 F Pulse Rate 85 100 H Respiratory Rate 18 17 Blood Pressure 130/67 143/70 H Pulse Oximetry 100 97 Intake & Output 04/26/18 04/27/18 04/27/18 18:59 06:59 18:59 Intake Total 900 / 900 Output Total 975 / 975 Balance -75 / -75 Weight 57.8 kg Intake: Oral 900 / 900 Output: Stool Amount (Stoma) 975 / 975 Pre-Hospital: Right Lower 975 / 975 Abdomen Other: # Voids 3 Date of Last Bowel Movement 04/26/18 04/26/18 - Constitutional no acute distress - Routine Respiratory Exam Present: CTA bilaterally - Routine Cardiovascular Exam Present: RRR - Routine Abdominal Exam Present: soft - Routine Extremities Exam Comments: no pedal edema. - Routine Neurological Exam Present: alert, oriented X3 - Urinary Catheter Management Straight Cath placed during this visit: no Reason for continuing: Not indwelling catheter Results - Labs CBC & Chem 7: 04/25/18 07:00 04/27/18 06:15 Laboratory Results - last 24 hr 04/26/18 04/27/18 12:00 06:15 Sodium 140 Potassium 3.9 D Chloride 107 Carbon Dioxide 25.8 Anion Gap 7 BUN 11 Creatinine 1.26 H Estimated GFR 42 L Random Glucose 81 Calcium 8.1 L Phosphorus 1.2 L Magnesium 1.8 D - Procedures none Assessment and Plan - Assessment (1) Acute kidney failure Code(s): N17.9 - Acute kidney failure, unspecified Status: Acute - Plan Severe protein calorie malnutrition Recent exploratory laparotomy with extensive removal of intraperitoneal tumor including resection of large pelvic mass from right ovary, hysterectomy, bilateral salpingo-fragment, multifocal intense resection with primary anastomosis, intraperitoneal tumor cytoreduction and diverting ileostomy. Dr. Dalton. High ileostomy output Discontinued bowel regimen. Imodium as needed CT abdomen/pelvis-interval increase in the size of the mass previously noted adjacent to the gallbladder which now measures up to 4.2 x 3.5 cm in diameter. The previously noted large pelvic mass is no longer visualized. There is a smaller masslike structure now noted in the presacral region. evaluated by oncology and colorectal surgery. Acute kidney injury. Improved. hypokalemia/hypophosphatemia Renal consulted. Most likely from dehydration CT abdomen/pelvis as above Monitor urine output Accurate I's and O's ct IVF Avoid nephrotoxic medication replace electrolytes as needed. 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 Improved Normocytic normochromic anemia. Improved after packed RBC transfusion + Hemoccult stool (CRS following). Coags within normal limits CT abdomen/pelvis-as above Dr. Walsh consulted Enterococcus faecalis UTI with sepsis Switched to Cipro PT evaluate and treat Access -Okay to utilize left Port-A-Cath. Peripheral IVs. Prophylaxis -GI -pantoprazole -DVT -SCD/heparin subcu Discharge Planning: home with [facility] today- after cleared by colorectal surgery. see med list. f/u; pcp, colorectal surgery and oncology. d/w the patient and RN. Cunningham was reviewed.
--- NOTE | 2018-04-27 10:22 | P.PN ---
Subjective Interval history: Dehydration, metastatic colon cancer Feels better, wants to go home Physical Exam Vital signs: Vital Signs 04/26/18 12:00 04/26/18 16:00 04/26/18 20:00 Temperature 97.6 F 97.7 F 97.5 F L Pulse Rate 69 72 82 Respiratory Rate 20 18 18 Blood Pressure 124/62 125/65 141/68 H Pulse Oximetry 100 100 100 04/27/18 00:00 04/27/18 08:00 Temperature 98.3 F 98.0 F Pulse Rate 85 100 H Respiratory Rate 18 17 Blood Pressure 130/67 143/70 H Pulse Oximetry 100 97 Intake & Output 04/26/18 04/27/18 04/27/18 18:59 06:59 18:59 Intake Total 900 / 900 Output Total 975 / 975 Balance -75 / -75 Weight 57.8 kg Intake: Oral 900 / 900 Output: Stool Amount (Stoma) 975 / 975 Pre-Hospital: Right Lower 975 / 975 Abdomen Other: # Voids 3 Date of Last Bowel Movement 04/26/18 04/26/18 - Routine Abdominal Exam Comments: soft, nondistended, wounds clean - Urinary Catheter Management Straight Cath placed during this visit: no Reason for continuing: Not indwelling catheter Results - Labs CBC & Chem 7: 04/25/18 07:00 04/27/18 06:15 Laboratory Results - last 24 hr 04/26/18 04/27/18 12:00 06:15 Sodium 140 Potassium 3.9 D Chloride 107 Carbon Dioxide 25.8 Anion Gap 7 BUN 11 Creatinine 1.26 H Estimated GFR 42 L Random Glucose 81 Calcium 8.1 L Phosphorus 1.2 L Magnesium 1.8 D - Procedures none Assessment and Plan - Assessment (1) Dehydration Code(s): E86.0 - Dehydration Status: Acute Plan: OK to go home with imodium daily She must measure her output daily, call if more than 1500 Followup with me 6 weeks (2) Dehydration Code(s): E86.0 - Dehydration Status: Acute (3) 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
--- NOTE | 2018-04-27 10:22 | P.DS ---
Date of admission: 04/21/18 20:32 Primary care physician: Afia Lee Brief History from admission: This is a 67-year-old female. Admission 04/21/2018. 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 She finished her last round of chemotherapy in May 2017. She has a port in the left side. Patient recently had expiratory laparotomy, fixed resection of pelvic mass, total vaginal hysterectomy bilateral salpingo-nephrectomy, ureteral lysis, cystostomy repair, excision of abdominal wall tumor, sigmoid, transverse colon resection with small bowel resection x2 and diverting loop ileostomy. She currently has an ileostomy in her right lower quadrant. This is done by Dr. Dalton 03/14. She is followed by Dr. Walsh. Postoperation she was at [facility] and was discharged 2 weeks ago. Since that time,, the patient states that she has not been able to eat or drink and she feels she has lost weight and is extremely fatigued. She reports eating "very little" and she has only had several sips of juice in the last 2 days. The patient also complains of constant abdominal pain that feels like a tight band around her lower abdomen and is described as 7/10. She has had decreased urine output and states that she has had to change her colostomy bag less and the stool is darker than normal. She also complains of increasing SOB at night but is not on any home Baseline laboratories reveal a sodium of 115, potassium of 6.1. BUN of 170. Creatinine of 8. White blood cell count was 18,000. EKG reveals did not show any peaked T waves. She was given calcium gluconate, insulin/D50/bicarbonate and Kayexalate. Repeat laboratories are currently pending. She received 1 L normal saline is currently on NS at 84 cc an hour. Potassium is pending. We are asked to evaluate. CT abdomen/pelvis is pending at time of dictation. On evaluation abdomen there is ostomy site is pink with adequate stool output. She does appear dry on examination. She is hemodynamically stable. DS: Diagnosis - Discharge Diagnosis (1) Acute kidney failure Status: Acute DS: Medications - Discharge Medications Prescriptions: RX: ciprofloxacin HCl 250 mg PO Q12HR 3 Days tab ferrous sulfate [FeroSul] 325 mg PO DAILY 30 Days #30 tab sod phos di, mono-K phos mono [R-Yxwu-Hwjzuqq] 250 mg PO TID 2 Days #1.32 tab DS: Summary Hospital Course: Severe protein calorie malnutrition Recent exploratory laparotomy with extensive removal of intraperitoneal tumor including resection of large pelvic mass from right ovary, hysterectomy, bilateral salpingo-fragment, multifocal intense resection with primary anastomosis, intraperitoneal tumor cytoreduction and diverting ileostomy. Dr. Dalton. High ileostomy output Discontinued bowel regimen. Imodium as needed CT abdomen/pelvis-interval increase in the size of the mass previously noted adjacent to the gallbladder which now measures up to 4.2 x 3.5 cm in diameter. The previously noted large pelvic mass is no longer visualized. There is a smaller masslike structure now noted in the presacral region. evaluated by oncology and colorectal surgery. Acute kidney injury. Improved. hypokalemia/hypophosphatemia Renal consulted. Most likely from dehydration CT abdomen/pelvis as above Monitor urine output Accurate I's and O's ct IVF Avoid nephrotoxic medication replace electrolytes as needed. 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 Improved Normocytic normochromic anemia. Improved after packed RBC transfusion + Hemoccult stool (CRS following). Coags within normal limits CT abdomen/pelvis-as above Dr. Walsh consulted Enterococcus faecalis UTI with sepsis Switched to Cipro - Time Spent with Patient Total time spent providing and/or coordinating discharge services: Less than 30 minutes - Quality: VTE Deep Vein Thrombosis/Pulmonary Embolism Present on Admission: No Exam Vital signs: Vital Signs 04/26/18 12:00 04/26/18 16:00 04/26/18 20:00 Temperature 97.6 F 97.7 F 97.5 F L Pulse Rate 69 72 82 Respiratory Rate 20 18 18 Blood Pressure 124/62 125/65 141/68 H Pulse Oximetry 100 100 100 04/27/18 00:00 04/27/18 08:00 Temperature 98.3 F 98.0 F Pulse Rate 85 100 H Respiratory Rate 18 17 Blood Pressure 130/67 143/70 H Pulse Oximetry 100 97 Intake & Output 04/26/18 04/27/18 04/27/18 18:59 06:59 18:59 Intake Total 900 / 900 Output Total 975 / 975 Balance -75 / -75 Weight 57.8 kg Intake: Oral 900 / 900 Output: Stool Amount (Stoma) 975 / 975 Pre-Hospital: Right Lower 975 / 975 Abdomen Other: # Voids 3 Date of Last Bowel Movement 04/26/18 04/26/18 - Constitutional no acute distress - Routine Respiratory Exam Present: CTA bilaterally - Routine Cardiovascular Exam Present: RRR - Routine Abdominal Exam Present: soft - Routine Extremities Exam Comments: no pedal edema. - Routine Neurological Exam Present: alert, oriented X3 Results Procedures completed during hospitalization: none Labs on day of discharge: Labs from last 24 hours 04/27/18 04/26/18 06:15 12:00 Sodium 140 Potassium 3.9 D Chloride 107 Carbon Dioxide 25.8 Anion Gap 7 BUN 11 Creatinine 1.26 H Estimated GFR 42 L Random Glucose 81 Calcium 8.1 L Phosphorus 1.2 L Magnesium 1.8 D - Impressions ITS Impressions Chest X-Ray 04/21/18 18:19 CONCLUSION: No acute intrathoracic disease. Stable examination. Abdomen/Pelvis CT 04/21/18 20:10 CONCLUSION: 1. Interval increase in the size of the mass previously noted adjacent to the gallbladder which now measures up to 4.2 x 3.5 cm in diameter. 2. The previously noted large pelvic mass is no longer visualized. There is a smaller masslike structure now noted in the presacral region. 3. Interval postsurgical changes status post partial colectomy. The bowel loops are poorly visualized and evaluated due to lack of intravenous and oral contrast. Mesenteric masses may be obscured. 4. Colectomy in the right lower quadrant. Discharge Plan - Discharge Disposition Patient Disposition: /Home Health Service - Discharge Condition Condition: Stable - Discharge Order Discharge Orders: Oncology Clear for Discharge (Routine); Ordered 04/27/18 Ordered By: Darby Garcia - Physicians Team Primary Care Provider: Afia Lee Attending Provider: Moraima Hernandez Other Providers: Maycol Chandler MD ; Violette Ford MD ; Henry Harding MD ; Yuki Mirza ; Yasir Walsh MD ; [facility],
--- NOTE | 2018-04-27 11:23 | P.DCO ---
- Physical Therapy Order: Evaluate and treat - Home Health Nursing Order: Medical education, Signs/symptoms of disease process, Medication education-adverse effect, Nursing assessment with vital signs - Case Management Consult Case Management Consult-Home Health: Yes - Certification I have seen patient Idalia Davis on 04/27/18. My clinical findings support the need for the requested home health care services because: Limited mobility due to disease progression I certify that my clinical findings support that this patient is homebound because: Unsteady gait/balance
[2018-04-27] MEDS ORDERED: Heparin Central Flush 100 UNIT/ML 5 ML Vial IV.FLUSH PRN ×2 (11:41)
== END 2018-04-27 12:23 | disposition home health service (06) ==
LOC: NEPE 17:51 → NEDA 20:32 → HIMC 21:45 → NEDA 21:54 → N07 04-24 13:46
PROVIDERS: ADMIT Internal Medicine; ATTEND Internal Medicine

== ENCOUNTER 2018-05-12 18:03 | Inpatient (IN) ==
[2018-05-12] MEDS ORDERED: Sod Chloride 0.9% Inj 1,000 ML IV.SIG ONE (18:31)
--- NOTE | 2018-05-12 18:45 | ED ---
HPI General Chief complaint: Nausea/Vomiting/Diarrhea Stated complaint: Medical Time Seen by Provider: 05/12/18 18:14 Source: patient Mode of arrival: ambulatory Limitations: no limitations History of Present Illness HPI Narrative: Patient is a pleasant 67-year-old female with history of metastatic colon cancer who recently underwent of abdominal debulking surgery, presents to the emergency room with complaints of weakness for the past 4 days and inability to eat. Patient reports that she was recently admitted to the hospital in the beginning of April with similar complaints. Patient reports that for the past 4 days, she has been feeling extremely weak. Patient reports that she feels too weak to get out of bed to actually make a meal. Reports that her son arrived from [place] last night to help take care of her. Patient 's home nurse evaluated patient today and recommended that patient come to the emergency room for evaluation. Patient reports that she has been feeling nauseous, she has not been vomiting. Patient reports that she has been having pain to her abdomen where her ostomy bag is. Patient's oncologist is Dr. Becerril and Dr. Walsh Related Data Home Medications Medication Instructions Recorded Confirmed hydrocodone-acetaminophen [[place]] 0.5 - 1 tab PO Q6H PRN 04/21/18 05/12/18 Previous Rx's Medication Instructions Recorded ferrous sulfate [FeroSul] 325 mg PO DAILY 30 Days #30 tab 04/27/18 loperamide [Imodium A-D] 2 mg PO DAILY 30 Days #30 tab 04/27/18 Allergies Allergy/AdvReac Type Severity Reaction Status Date / Time No Known Allergies Allergy Verified 04/21/18 17:55 Review of Systems ROS: all other systems reviewed are negative [facility] Medical History Medical History Abdominal mass (Acute) Bunion (Acute) Colon cancer (Acute) H/O pelvic mass (Acute) History of chemotherapy (Acute) Hydronephrosis (Acute) Kidney failure (Acute) Migraines (Acute) Mucinous adenocarcinoma of colon (Acute) Surgical History Surgical History Colostomy in place (Chronic) History of colon resection (Acute) Hx of appendectomy (Acute) Hx of cholecystectomy (Acute) Port catheter in place (Acute) S/P colon resection (Acute) S/P cystoscopy with ureteral stent placement (Acute) S/P exploratory laparotomy (Acute) History of hysterectomy (Chronic) Family History Family History Other Family history non-contributory Social History Social History Substance History: No History of Abuse Second Hand Smoke Exposure: No Smoking Status: Never smoker How Often Do You Have a Drink Containing Alcohol: Never Recent Travel in [facility] within the Last 8 Weeks: No Recent Out of Country Travel within the Last 8 Weeks: No Immunization History Tetanus Immunization: Unsure Exam Narrative Exam Narrative: GENERAL: Frail, cachetic appearing SKIN: Focused skin assessment warm/dry. HEAD: Atraumatic. Normocephalic. EYES: Pupils equal and round. No scleral icterus. No injection or drainage. ENT: No nasal bleeding or discharge. Mucous membranes pink and moist. NECK: Trachea midline. No JVD. CARDIOVASCULAR: Regular rate and rhythm. No murmur appreciated. RESPIRATORY: No accessory muscle use. Clear to auscultation. Breath sounds equal bilaterally. GASTROINTESTINAL: Abdomen soft, colostomy bag in place, pain to palpation to right lower abdomen MUSCULOSKELETAL: No obvious deformities. No clubbing. No cyanosis. No edema. NEUROLOGICAL: Awake and alert. Normal speech. PSYCHIATRIC: Appropriate mood and affect; insight and judgment normal. Course Initial Documented Vital Signs Temperature 97.5 F L 05/12/18 18:20 Pulse Rate 77 05/12/18 18:20 Respiratory Rate 18 05/12/18 18:20 Blood Pressure 110/63 05/12/18 18:20 Pulse Oximetry 99 05/12/18 18:20 Last Documented Vital Signs Temperature 97.5 F L 05/12/18 18:20 Pulse Rate 74 05/12/18 19:26 Respiratory Rate 16 05/12/18 19:26 Blood Pressure 101/59 L 05/12/18 19:26 Pulse Oximetry 99 05/12/18 19:26 Medical Decision Making MDM Narrative Medical decision making narrative: During the course of the patients emergency department visit, the patients history, examination, and differential diagnosis were reviewed with the patient. The patient was placed on a property assessment monitor with oximetry and frequent blood pressure monitoring. The patient had an IV access obtained and blood work sent for analysis. The patient was initially provided IVF. Patient with does not want morphine for pain - request something not as strong - will administer po percocet. The patients laboratory studies were reviewed and remarkable for wbc 14, hgb 13.2, hct 37.2 Sodium 116, potassium 6.5, BUN 149, cr 9.45 Patient was given a liter of IV fluids, because her potassium was 6.5, patient was given IV calcium as well as sodium bicarb, Kayexalate as well as insulin and dextrose. A Guadalupe catheter will be placed to measure I's and O's for her kidney failure as her creatinine is now 9.45, BUN is 149 Call made to the ruby developer for admission to the hospital. Medical Screen Exam Complete: Yes Emergency Medical Condition: Yes Differential Diagnosis Differential Diagnosis: failure to thrive, metabolic syndrome, dehydration, renal failure Lab Data Result diagrams: 05/12/18 18:55 05/12/18 18:55 Lab Results 05/12/18 05/12/18 Range/Units 18:55 18:55 WBC 14.0 H (4.0-11.0) th/mm3 RBC 4.59 (4.00-5.30) mil/mm3 Hgb 13.2 (11.6-15.3) gm/dL Hct 37.2 (35.0-46.0) % MCV 81.2 (80.0-100.0) fL MCH 28.8 (27.0-34.0) pg MCHC 35.4 (32.0-36.0) % RDW 19.0 H (11.6-17.2) % Plt Count 449 D (150-450) th/mm3 MPV 6.8 L (7.0-11.0) fL Neut % (Auto) 64.3 (16.0-70.0) % Lymph % (Auto) 25.5 (9.0-44.0) % [place] % (Auto) 9.6 H (0.0-8.0) % Eos % (Auto) 0.3 (0.0-4.0) % Baso % (Auto) 0.3 (0.0-2.0) % Neut # (Auto) 9.0 H (1.8-7.7) th/mm3 Lymph # (Auto) 3.6 (1.0-4.8) th/mm3 [place] # (Auto) 1.3 H (0.0-0.9) th/mm3 Eos # (Auto) 0.0 (0.0-0.4) th/mm3 Baso # (Auto) 0.0 (0.0-0.2) th/mm3 WBC Differential . Differential Comment Auto diff final Sodium 116 L* (136-145) meq/L Potassium 6.5 H (3.5-5.1) meq/L Chloride 74 L (98-107) meq/L Carbon Dioxide 27.9 (21.0-32.0) meq/L Anion Gap 14 (5-15) meq/L BUN 149 H (7-18) mg/dL Creatinine 9.45 H (0.50-1.00) mg/dL Estimated GFR 4 L (>89) mL/min Random Glucose 93 (74-106) mg/dL Calcium 9.3 (8.5-10.1) mg/dL Magnesium 1.6 (1.5-2.5) mg/dL Total Bilirubin 0.7 (0.2-1.0) mg/dL AST 24 (15-37) U/L ALT 51 (10-53) U/L Alkaline Phosphatase 308 H (45-117) U/L Total Protein 8.1 (6.4-8.2) g/dL Albumin 3.5 (3.4-5.0) g/dL Lipase 131 (73-393) U/L Imaging Data Radiologist's impression: Abdomen/Pelvis CT 05/12/18 18:31 CONCLUSION: 1. 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 There is a potential contained rupture of the gallbladder with an apparent discontinuity seen inferiorly and laterally and with increased pericholecystic fluid. There is also marked wall thickening of the duodenum but a nonobstructive bowel gas pattern. No free air. 2. Difficult to separate from adjacent bowel loops but multiple metastatic masses are suspected in the pelvic cavity as described. Discharge Plan Discharge Disposition Patient Disposition: ED Admit(ED Internal Use Only) Discharge Condition Condition: Critical Discharge Order Discharge Orders: ED Use Only Admit Order (Routine); Ordered 05/12/18 Ordered By: Cheri Vásquez Physicians Team ED Provider: Cheri Vásquez Rxs /Orders / Referrals /Forms Prescriptions: No Action hydrocodone-acetaminophen [[place]] 7.5-325 mg tablet 0.5 - 1 tab PO Q6H PRN (Reason: Pain 4-10) RF: 0 ferrous sulfate [FeroSul] 325 mg (65 mg iron) Tablet 325 mg PO DAILY 30 Days Qty: 30 RF: 0 loperamide [Imodium A-D] 2 mg Tablet 2 mg PO DAILY 30 Days Qty: 30 RF: 0 Discharge Interventions Interventions: Vital Signs Last Done: 05/12/18 19:26 Status ED Status: With Doctor
--- NOTE | 2018-05-12 19:20 | CT ---
EXAM DATE: 05/12/2018 7:05 PM EST AGE/SEX: 67 years / Female INDICATIONS: Abdominal pain, nausea and vomiting. CLINICAL DATA: This is the patient's initial encounter. Patient reports that signs and symptoms have been present for 3 days and indicates a pain score of 6/10. MEDICAL/SURGICAL HISTORY: Renal failure, chronic. Abdominal mass. Chemotherapy. Appendectomy. Cholecystectomy. Colon resection. Colostomy. RADIATION DOSE: 6.64 CTDI (mGy) [place] [facility] [place]/O CONTRAST[place]/21/2018. . TECHNIQUE: Multiple contiguous axial images were obtained through the abdomen. Images were obtained using multiple row detector helical technique. Using automated exposure control and adjustment of the mA and/or kV according to patient size, radiation dose was kept as low as reasonably achievable to o btain optimal diagnostic quality images. DICOM format image data is available electronically for rev iew and comparison. FINDINGS: Heterogeneous, partially calcified mass adjacent to the gallbladder is again noted and measures large r, currently estimated at approximately 4.7 x 5.6 x 6.1 cm. There is rim calcification of the gallbla dder wall and it now appears discontinuous inferiorly and laterally, for example series 601 image 42. There is pericholecystic fluid, not new but increased. The mass invades the second and third portion of the duodenum and there is marked wall thickening approximately 5.7 cm in length. The stomach is n ot overly distended. I believe there may also be some invasion developing of the head of the pancreas . Benign cyst of the liver measuring 2.8 cm again seen, unchanged. Noncontrast appearance of the spleen , adrenal glands and kidneys within normal limits. Colectomy changes with a right lower quadrant ostomy again noted. There is a 2.9 cm mass in the right lower quadrant upper pelvic cavity on series 2 image 49. A 2.4 x 2.9 cm mass is suspected in the rig ht anterior pelvic cavity, series 2 image 56. There is a questionable mass in the left mid pelvic cav ity measuring 1.2 x 2.9 cm. There is a soft tissue nodule in the right posterior pelvic cavity measur ing 1.1 cm on series 2 image 61. Visualized lung bases are clear. No lytic or sclerotic lesions seen of the visualized osseous structu res. CONCLUSION: 1. The maria a hepatis mass with involvement of the gallbladder, second and third portion of the duode num and probably the head of the pancreas is larger. There is a potential contained rupture of the ga llbladder with an apparent discontinuity seen inferiorly and laterally and with increased pericholecy stic fluid. There is also marked wall thickening of the duodenum but a nonobstructive bowel gas patte rn. No free air. 2. Difficult to separate from adjacent bowel loops but multiple metastatic masses are suspected in t he pelvic cavity as described. Electronically signed by: Zachary Ronquillo MD Board Certified Radiologist 05/12/2018 7:18 PM EST
[2018-05-12 19:31] LABS: Baso % (Auto) 0.3 % (0.0-2.0); Eos % (Auto) 0.3 % (0.0-4.0); Hematocrit 37.2 % (35.0-46.0); Hemoglobin 13.2 gm/dL (11.6-15.3); Lymph # (Auto) 3.6 th/mm3 (1.0-4.8); Lymph % (Auto) 25.5 % (9.0-44.0); Mean Corpuscular HGB Conc 35.4 % (32.0-36.0); Mean Corpuscular Hemoglobin 28.8 pg (27.0-34.0); Mean Corpuscular Volume 81.2 fL (80.0-100.0); Mean Platelet Volume 6.8 fL (7.0-11.0); Mono # (Auto) 1.3 th/mm3 (0.0-0.9); Mono % (Auto) 9.6 % (0.0-8.0); Neut % (Auto) 64.3 % (16.0-70.0); Platelet Count 449 th/mm3 (150-450); Red Blood Count 4.59 mil/mm3 (4.00-5.30)
[2018-05-12 20:00] LABS: Alanine Aminotransferase 51 U/L (10-53); Albumin 3.5 g/dL (3.4-5.0); Alkaline Phosphatase 308 U/L (45-117); Anion Gap 14 meq/L (5-15); Aspartate Aminotransferase 24 U/L (15-37); Blood Urea Nitrogen 149 mg/dL (7-18); Calcium 9.3 mg/dL (8.5-10.1); Carbon Dioxide 27.9 meq/L (21.0-32.0); Chloride 74 meq/L (98-107); Glomerular Filtration Rate 4 mL/min (>89); Glucose,Random 93 mg/dL (74-106); Lipase 131 U/L (73-393); Magnesium 1.6 mg/dL (1.5-2.5); Potassium 6.5 meq/L (3.5-5.1); Total Protein 8.1 g/dL (6.4-8.2)
[2018-05-12 20:32] LABS: Sodium 116 meq/L (136-145)
[2018-05-12] MEDS ORDERED: Sodium Polystyrene Sulfonate/Sorbitol Liq 15 GM/60 ML UDC PO ONE (20:41)
[2018-05-12] MEDS ORDERED: Calcium Gluconate Inj 1 GM in Sodium Chlor 0.9% Inj 100 ML IV.SIG ONE (20:41)
[2018-05-12] MEDS ORDERED: Dextrose 50% in Water 50 ML Vial IV.PUSH ONE (20:41)
[2018-05-12] MEDS ORDERED: Dextrose 50% in Water 50 ML Vial IV.PUSH PRN (21:06)
[2018-05-12] MEDS ORDERED: HYDROmorphone PF Inj 1 MG/ML Ampul IV.PUSH PRN (21:06)
[2018-05-12] MEDS ORDERED: Acetaminophen 325 MG Tablet PO PRN (21:06)
--- NOTE | 2018-05-12 21:11 | P.HPCC ---
History of Present Illness Service: Critical care medicine Primary Care Physician: Kristyn Chatman Chief Complaint: weakness History of Present Illness: 67yF with recurrent stage IV metastatic colon cancer with multiple recent acute hospitalizations for complications related to her oncologic disease process. She most recently was admitted for severe dehydration, electrolyte disturbances including hyponatremia, and acute renal failure. She was discharged from that hospitalization and returned to Dr. Kumar's clinic, where per his note, the recommendation was for either hospice services vs. palliative chemotherapy. The patient at that time chose palliative chemotherapy. Her first round of palliative chemoTx is set for 05/17/2018. However, over the last week, she has been too fatigued to eat or get out of bed or drink. Her son has come to visit her and convinced her to seek medical attention. She is severely dehydrated. her sodium is 116, Cr > 9. CT abd/pelvis demonstrates advancement of disease. remainder of her ROS is negative, including specifically she denies fever, chills, n/v. baseline abd pain has not changed. denies chest pain, sob. Inpatient Certification: I certify that the inpatient services were ordered in accordance with Medicare regulations governing the order. This includes certification that hospital inpatient services are reasonable and necessary and in the case of services not specified as inpatient-only under 42 CFR 419.22(n), that they are appropriately provided as inpatient services in accordance to with the 2-midnight benchmark under 43 CFR 412.3(e) Estimated Total Length of Stay (Days): 5 Plans for Post Hospital Care: Not yet determined Review of Systems All other systems reviewed negative except as stated in HPI PMFSH - History History Provided By: Patient, Family Member, Medical Record - Medical History Medical History: Medical History (Last Reviewed 05/13/18 @ 00:53 by Aubrey Donovan MD) Abdominal mass Bunion Colon cancer H/O pelvic mass History of chemotherapy Hydronephrosis Kidney failure Migraines Mucinous adenocarcinoma of colon - Surgical History Surgical History: Surgical History (Last Reviewed 05/13/18 @ 00:53 by Aubrey Donovan MD) Colostomy in place (Chronic) History of colon resection Hx of appendectomy Hx of cholecystectomy Port catheter in place S/P colon resection S/P cystoscopy with ureteral stent placement S/P exploratory laparotomy History of hysterectomy - Family History Family History: Family History (Last Reviewed 05/13/18 @ 00:53 by Aubrey Donovan MD) Other Family history non-contributory - Social History I have reviewed the patient's Social History: Yes - Tobacco History Second Hand Smoke Exposure: No Smoking Status: Never smoker - Alcohol History How Often Do You Have a Drink Containing Alcohol: Never - Substance Use History Substance History: No History of Abuse - Travel History Recent Travel in the [place] Within the Last 8 Weeks: No Recent Travel Out of the Country Within the Last 8 Weeks: No - Immunization History Tetanus Immunization: Unsure Medications and Allergies Active Medications: Active Medications Albuterol (Duoneb Neb (Prn)) 1 ampul NEB Q2HR NEB PRN PRN Reason: WHEEZING Chlorhexidine Gluconate (Chlorhexidine 2% Cloth) 3 pack TOPICAL DAILY@0400 JANESSA Stop: 05/18/18 03:59 Chlorhexidine Gluconate (Chlorhexidine 2% Cloth) 3 pack TOPICAL DAILY@0400 PRN PRN Reason: Extra cloth needed Stop: 05/18/18 03:59 Dextrose (D50w Vial) 50 ml IV.PUSH UNSCH PRN PRN Reason: PER HYPOGLYCEMIA PROTOCOL Enoxaparin Sodium (Lovenox Inj) 40 mg SQ DAILY JANESSA Glucagon (Glucagon Inj) 1 mg OTHER PRN PRN PRN Reason: for Hypoglycemia Protocol Hydromorphone HCl (Dilaudid Pf Inj) 0.25 mg IV.PUSH Q1H PRN PRN Reason: pain 8-10 or not taking po Calcium Gluconate 1 gm/ Sodium (Chloride) 110 mls @ 110 mls/hr IV.SIG ONCE ONE Stop: 05/12/18 21:40 Sodium Chloride (Ns Inj) 1,000 mls @ 1,000 mls/hr IV.SIG BOLUS JANESSA Stop: 05/12/18 22:14 Sodium Chloride (Ns Flush) 2 ml IV.FLUSH PRN PRN PRN Reason: FLUSH AFTER USING IV ACCESS Allergies Allergy/AdvReac Type Severity Reaction Status Date / Time No Known Allergies Allergy Verified 05/13/18 00:06 Home Medications Medication Instructions Recorded Confirmed Type hydrocodone-acetaminophen [[place]] 0.5 - 1 tab PO Q6H PRN 04/21/18 05/12/18 History Results - Labs CBC & Chem 7: 05/12/18 18:55 05/12/18 22:00 Labs: Short CBC 05/12/18 Range/Units 18:55 WBC 14.0 H (4.0-11.0) th/mm3 Hgb 13.2 (11.6-15.3) gm/dL Hct 37.2 (35.0-46.0) % Plt Count 449 D (150-450) th/mm3 [facility] 05/12/18 18:55 Sodium 116 L* Potassium 6.5 H Chloride 74 L Carbon Dioxide 27.9 BUN 149 H Creatinine 9.45 H Calcium 9.3 Liver Function 05/12/18 Range/Units 18:55 Total Bilirubin 0.7 (0.2-1.0) mg/dL AST 24 (15-37) U/L ALT 51 (10-53) U/L Alkaline Phosphatase 308 H (45-117) U/L Albumin 3.5 (3.4-5.0) g/dL - Imaging Impressions Abdomen/Pelvis CT 05/12/18 18:31 CONCLUSION: 1. 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 There is a potential contained rupture of the gallbladder with an apparent discontinuity seen inferiorly and laterally and with increased pericholecystic fluid. There is also marked wall thickening of the duodenum but a nonobstructive bowel gas pattern. No free air. 2. Difficult to separate from adjacent bowel loops but multiple metastatic masses are suspected in the pelvic cavity as described. Exam Vital signs: Vital Signs 05/12/18 18:20 05/12/18 19:26 Temperature 36.4 C L Pulse Rate 77 74 Respiratory Rate 18 16 Blood Pressure 110/63 101/59 L Pulse Oximetry 99 99 Intake & Output 05/12/18 05/12/18 05/13/18 06:59 18:59 06:59 Intake Total 1000 / 1000 Balance 1000 / 1000 Weight 46.266 kg Intake: IV 1000 / 1000 NS Inj 1,000 ML @ Wide Open IV. 1000 / 1000 SIG BOLUS ONE Rx#:[id number] Narrative: GENERAL: Frail and cachectic middle-aged female who appears much older than stated age, lying in bed, in distress HEENT: Normocephalic. Atraumatic. Pupils equal, round, reactive, conjugate. Mucous membranes are dry. Temporal wasting noted. NECK: Trachea is midline. There is no JVD. CHEST: Equal chest rise. Room air. CARDIOVASCULAR: Tachycardic rate, regular rhythm. Sinus. ABDOMEN: Soft, scaphoid, nontender, nondistended. No guarding. MUSCULOSKELETAL: Pulses 2+. No peripheral edema. Very poor skin turgor. NEUROLOGICAL: RASS 0 to -1. Follows commands in all 4 extremities. No focal deficits. Conversant. Caprini VTE Risk Assessment Caprini VTE Risk Assessment: Moderate/High Risk (score >= 2) Caprini Risk Assessment Model: Point Value = 1 Point Value = 2 Point Value = 3 Point Value = 5 Age 41-60 Minor surgery BMI > 25 kg/m2 Swollen legs Varicose veins or History of unexplained or recurrent spontaneous Oral contraceptives or hormone replacement Sepsis (< 1 month) Serious lung disease, including pneumonia (< 1 month) Abnormal pulmonary function Acute myocardial infarction Congestive heart failure (< 1 month) History of inflammatory bowel disease Medical patient at bed rest Age 61-74 Arthroscopic surgery Major open surgery (> 45 min) Laparoscopic surgery (> 45 min) Malignancy Confined to bed (> 72 hours) Immobilizing plaster cast Central venous access Age >= 75 History of VTE Family history of VTE Factor V Leiden Prothrombin [id number] Lupus anticoagulant Anticardiolipin antibodies Elevated serum homocysteine Heparin-induced thrombocytopenia Other congenital or acquired thrombophilia Stroke (< 1 month) Elective arthroplasty Hip, pelvis, or leg fracture Acute spinal cord injury (< 1 month) Prophylaxis Regimen: Total Risk Factor Score Risk Level Prophylaxis Regimen 0-1 Low Early ambulation 2 Moderate Order ONE of the following: *Sequential Compression Device (SCD) *Heparin 5000 units SQ BID 3-4 Higher Order ONE of the following medications: *Heparin 5000 units SQ TID *Enoxaparin/Lovenox 40 mg SQ daily (WT < 150 kg, CrCl > 30 mL/min) *Enoxaparin/Lovenox 30 mg SQ daily (WT < 150 kg, CrCl > 10-29 mL/min) *Enoxaparin/Lovenox 30 mg SQ BID (WT < 150 kg, CrCl > 30 mL/min) AND/OR *Sequential Compression Device (SCD) 5 or more Highest Order ONE of the following medications: *Heparin 5000 units SQ TID (Preferred with Epidurals) *Enoxaparin/Lovenox 40 mg SQ daily (WT < 150 kg, CrCl > 30 mL/min) *Enoxaparin/Lovenox 30 mg SQ daily (WT < 150 kg, CrCl > 10-29 mL/min) *Enoxaparin/Lovenox 30 mg SQ BID (WT < 150 kg, CrCl > 30 mL/min) AND *Sequential Compression Device (SCD) Assessment and Plan - Assessment and Plan Plan: Assessment: 67-year-old female with stage IV recurrent metastatic colon cancer. Had a long discussion with the patient and her 2 adult living children. This is the same presentation that she had a few weeks ago with severe dehydration. I am concerned that she is by far too frail and deconditioned to undergo any sort of palliative chemotherapy efforts. Certainly her non-oncologic acute illness with severe dehydration and severe oliguric renal failure with a creatinine greater than 9 are in and of themselves life-threatening. I explained that in order to treat her organ failure and severe electrolyte derangements, this was likely going to take 1-2 weeks in an inpatient setting. However, I do not see any of these efforts as improving her overall quality of life or at this point, length of life. I explained that she has a terminal disease process, and that without the strength to undergo palliative chemotherapy, hospice was most likely the most appropriate and best option for her at the present time. The patient and her family agree, and wish to pursue hospice and comfort measures. We did also discuss CODE STATUS, and she elects to be a DNR. We will admit the patient for IV fluids and attempt to correct his many of the electrode derangements as we can overnight tonight. I have asked hospice services to discuss options with the morning. The patient does state that she would like to go home tomorrow if possible. For now the patient is quite critically ill and we are still aggressive with her medical goals short of resuscitative efforts for the night. She has severe life-threatening hyponatremia and dehydration. Active problems: Worsening stage IV recurrent metastatic colon cancer Severe life-threatening dehydration Acute intravascular volume depletion Severe life-threatening hyponatremia Hypovolemic hyponatremia Hypokalemia Severe oliguric acute kidney injury Plan: Hospice consult Admit ICU DNR CODE STATUS We will consult oncology to follow along We will consult palliative care Crystalloid maintenance IV fluids Trend serial sodiums Check urine sodium, urine and serum osmolality, urine creatinine. Strict I's and O's Guadalupe has been placed for hourly I's and O's, likely be removed in the morning Encourage p.o. intake Advance to clear liquids SCDs Lovenox Pepcid Out of bed with assistance A.m. CBC, CMP Send prealbumin This patient remains critically ill with one or more organ systems which are or may become a threat to life. I have spent in excess of 63 minutes discontinuously in the care and management of this patient. This time is exclusive of procedures, and includes, but is not limited to, evaluation of the patient, review of the medical record, discussions with family, consultants, nursing staff, or respiratory therapy, and documentation in the medical record.
[2018-05-12] MEDS ORDERED: Sod Chloride 0.9% Inj 1,000 ML IV.SIG SCH (21:15)
[2018-05-12] MEDS: Enoxaparin Inj 40 MG/0.4 ML Syringe SQ SCH (22:25)
[2018-05-12 23:14] LABS: Bilirubin,Urine Negative (Negative); Clarity,Urine Cloudy (Clear); Color,Urine Yellow (Yellw/Straw); Glucose,Urine (UA) Negative (Negative); Hyaline Casts,Urine 4 /lpf (0-3); Leukocyte Esterase,Urine Trace (Negative); Mucus,Urine Few /lpf (Occasional); Nitrite,Urine Negative (Negative); Specific Gravity,Urine 1.013 (1.002-1.035); Squamous Epithelial Cell,Urine 1 /hpf (0-5)
[2018-05-12 23:22] LABS: Alanine Aminotransferase 45 U/L (10-53); Albumin 3.2 g/dL (3.4-5.0); Alkaline Phosphatase 278 U/L (45-117); Anion Gap 12 meq/L (5-15); Aspartate Aminotransferase 23 U/L (15-37); Blood Urea Nitrogen 143 mg/dL (7-18); Calcium 8.9 mg/dL (8.5-10.1); Carbon Dioxide 26.4 meq/L (21.0-32.0); Chloride 84 meq/L (98-107); Glomerular Filtration Rate 4 mL/min (>89); Glucose,Random 77 mg/dL (74-106); Magnesium 1.6 mg/dL (1.5-2.5); Phosphorus 8.4 mg/dL (2.5-4.9); Potassium 6.4 meq/L (3.5-5.1); Prealbumin 39 mg/dL (20-40); Total Protein 7.3 g/dL (6.4-8.2)
[2018-05-12 23:26] LABS: Sodium 122 meq/L (136-145)
[2018-05-12] MEDS: Insulin NovoLIN Regular Correctional Sugar Inj SQ SCH (23:48)
[2018-05-13] MEDS: Chlorhexidine Gluconate 2% 1 Pack (2 Cloths) TOPICAL SCH (03:41)
[2018-05-13] MEDS ORDERED: Chlorhexidine Gluconate 2% 1 Pack (2 Cloths) TOPICAL PRN (04:00)
[2018-05-13] MEDS: Insulin NovoLIN Regular Correctional Sugar Inj SQ SCH ×3 (06:10→19:30)
[2018-05-13 06:27] LABS: Baso % (Auto) 0.3 % (0.0-2.0); Eos # (Auto) 0.1 th/mm3 (0.0-0.4); Eos % (Auto) 0.5 % (0.0-4.0); Hematocrit 29.3 % (35.0-46.0); Hemoglobin 10.3 gm/dL (11.6-15.3); Lymph # (Auto) 3.5 th/mm3 (1.0-4.8); Lymph % (Auto) 33.6 % (9.0-44.0); Mean Corpuscular HGB Conc 35.2 % (32.0-36.0); Mean Corpuscular Hemoglobin 29.4 pg (27.0-34.0); Mean Corpuscular Volume 83.4 fL (80.0-100.0); Mean Platelet Volume 6.6 fL (7.0-11.0); Mono # (Auto) 1.2 th/mm3 (0.0-0.9); Mono % (Auto) 11.7 % (0.0-8.0); Neut # (Auto) 5.6 th/mm3 (1.8-7.7); Neut % (Auto) 53.9 % (16.0-70.0); Platelet Count 327 th/mm3 (150-450); Red Blood Count 3.51 mil/mm3 (4.00-5.30); Red Cell Distribution Width 18.6 % (11.6-17.2); White Blood Count 10.4 th/mm3 (4.0-11.0)
[2018-05-13] MEDS: Enoxaparin Inj 40 MG/0.4 ML Syringe SQ SCH (08:04)
[2018-05-13 10:49] LABS: Alanine Aminotransferase 37 U/L (10-53); Albumin 2.7 g/dL (3.4-5.0); Alkaline Phosphatase 216 U/L (45-117); Anion Gap 14 meq/L (5-15); Aspartate Aminotransferase 24 U/L (15-37); Blood Urea Nitrogen 117 mg/dL (7-18); Calcium 8.6 mg/dL (8.5-10.1); Carbon Dioxide 27.4 meq/L (21.0-32.0); Chloride 86 meq/L (98-107); Glomerular Filtration Rate 6 mL/min (>89); Glucose,Random 92 mg/dL (74-106); Magnesium 1.4 mg/dL (1.5-2.5); Phosphorus 7.1 mg/dL (2.5-4.9); Potassium 4.3 meq/L (3.5-5.1); Sodium 127 meq/L (136-145); Total Protein 6.4 g/dL (6.4-8.2)
--- NOTE | 2018-05-13 12:51 | P.PNCC ---
Subjective Subjective Remarks/Hospital Course: 05/13:Afebrile. Attempted to transition from supine to standing position this a.m. , with physical therapy ,orthostatic, patient returned to bed. Sodium level improving. Patient is scheduled for meeting with hospice today. Objective Vital Signs / I&O: Vital Signs 05/12/18 18:20 05/12/18 19:26 05/12/18 22:18 Temperature 97.5 F L Pulse Rate 77 74 88 Respiratory Rate 18 16 16 Blood Pressure 110/63 101/59 L 107/59 L Pulse Oximetry 99 99 96 05/12/18 23:00 05/12/18 23:27 05/12/18 23:33 Temperature 98.0 F Pulse Rate 81 85 Respiratory Rate 12 17 Blood Pressure 108/72 108/72 Pulse Oximetry 100 96 100 05/13/18 00:00 05/13/18 01:00 05/13/18 02:00 Temperature Pulse Rate 79 75 71 Respiratory Rate 16 30 H 17 Blood Pressure 97/53 L 99/54 L 97/59 L Pulse Oximetry 98 98 99 05/13/18 03:00 05/13/18 04:00 05/13/18 05:00 Temperature 98.2 F Pulse Rate 75 71 71 Respiratory Rate 17 16 19 Blood Pressure 116/51 L 93/52 L 93/51 L Pulse Oximetry 99 96 99 05/13/18 06:00 05/13/18 07:00 05/13/18 08:00 Temperature 98.0 F Pulse Rate 71 70 66 Respiratory Rate 25 H 23 17 Blood Pressure 88/51 L 89/53 L 97/54 L Pulse Oximetry 94 L 95 95 05/13/18 09:00 05/13/18 10:00 05/13/18 10:01 Temperature Pulse Rate 65 88 Respiratory Rate 17 31 H Blood Pressure 97/54 L Pulse Oximetry 99 95 83 L 05/13/18 10:04 05/13/18 10:09 05/13/18 11:00 Temperature Pulse Rate 75 75 Respiratory Rate 32 H 24 Blood Pressure 76/40 L 99/54 L 85/53 L Pulse Oximetry 98 100 05/13/18 12:00 Temperature 97.9 F Pulse Rate 70 Respiratory Rate 20 Blood Pressure 94/53 L Pulse Oximetry 98 Intake & Output 05/12/18 05/13/18 05/13/18 18:59 06:59 18:59 Intake Total 4110 / 4110 1000 / 1000 Output Total 805 / 805 920 / 920 Balance 3305 / 3305 80 / 80 Weight 46.266 kg 47.5 kg Intake: IV 2110 / 2110 1000 / 1000 LR 1000 mL Inj 1,000 ML @ 100 1000 / 1000 mls/hr IV.CONT .Q10H JANESSA Rx#: [id number] Calcium Gluconate Inj 1 GM In 110 / 110 NS Inj 100 ML @ 110 mls/hr IV. SIG ONCE ONE Rx#:[id number] NS Inj 1,000 ML @ 1000 mls/hr 1999 IV.SIG BOLUS JANESSA Rx#:[id number] Other 1999 Output: Urine 50 / 50 Urine Amount (Catheter) 355 / 355 320 / 320 Indwelling Urethral Catheter 355 / 355 320 / 320 Stool Amount (Stoma) 400 / 400 600 / 600 Right Lower Abdomen 400 / 400 600 / 600 Other: Other Intake Source Saline Solution Date of Last Bowel Movement 05/13/18 05/13/18 Weight On Admission 50 kg Result Diagrams: 05/13/18 05:27 05/13/18 09:55 Other Results: Laboratory Results WBC 10.4 th/mm3 (4.0-11.0) 05/13/18 05:27 RBC 3.51 mil/mm3 (4.00-5.30) L 05/13/18 05:27 Hgb 10.3 gm/dL (11.6-15.3) L D 05/13/18 05:27 Hct 29.3 % (35.0-46.0) L 05/13/18 05:27 MCV 83.4 fL (80.0-100.0) 05/13/18 05:27 MCH 29.4 pg (27.0-34.0) 05/13/18 05:27 MCHC 35.2 % (32.0-36.0) 05/13/18 05:27 RDW 18.6 % (11.6-17.2) H 05/13/18 05:27 Plt Count 327 th/mm3 (150-450) 05/13/18 05:27 MPV 6.6 fL (7.0-11.0) L 05/13/18 05:27 Neut % (Auto) 53.9 % (16.0-70.0) 05/13/18 05:27 Lymph % (Auto) 33.6 % (9.0-44.0) 05/13/18 05:27 [place] % (Auto) 11.7 % (0.0-8.0) H 05/13/18 05:27 Eos % (Auto) 0.5 % (0.0-4.0) 05/13/18 05:27 Baso % (Auto) 0.3 % (0.0-2.0) 05/13/18 05:27 Neut # (Auto) 5.6 th/mm3 (1.8-7.7) 05/13/18 05:27 Lymph # (Auto) 3.5 th/mm3 (1.0-4.8) 05/13/18 05:27 [place] # (Auto) 1.2 th/mm3 (0.0-0.9) H 05/13/18 05:27 Eos # (Auto) 0.1 th/mm3 (0.0-0.4) 05/13/18 05:27 Baso # (Auto) 0.0 th/mm3 (0.0-0.2) 05/13/18 05:27 WBC Differential . 05/13/18 05:27 Differential Comment Auto diff final 05/13/18 05:27 Sodium 127 meq/L (136-145) L 05/13/18 09:55 Potassium 4.3 meq/L (3.5-5.1) D 05/13/18 09:55 Chloride 86 meq/L (98-107) L 05/13/18 09:55 Carbon Dioxide 27.4 meq/L (21.0-32.0) 05/13/18 09:55 Anion Gap 14 meq/L (5-15) 05/13/18 09:55 BUN 117 mg/dL (7-18) H 05/13/18 09:55 Creatinine 7.35 mg/dL (0.50-1.00) H 05/13/18 09:55 Estimated GFR 6 mL/min (>89) L 05/13/18 09:55 POC Glucose 98 mg/dl (68-110) 05/13/18 07:53 Random Glucose 92 mg/dL (74-106) 05/13/18 09:55 Osmolality 306 mosm/kg (275-295) H 05/12/18 22:00 Calcium 8.6 mg/dL (8.5-10.1) 05/13/18 09:55 Phosphorus 7.1 mg/dL (2.5-4.9) H D 05/13/18 09:55 Magnesium 1.4 mg/dL (1.5-2.5) L 05/13/18 09:55 Total Bilirubin 0.6 mg/dL (0.2-1.0) 05/13/18 09:55 AST 24 U/L (15-37) 05/13/18 09:55 ALT 37 U/L (10-53) 05/13/18 09:55 Alkaline Phosphatase 216 U/L (45-117) H 05/13/18 09:55 Total Protein 6.4 g/dL (6.4-8.2) D 05/13/18 09:55 Albumin 2.7 g/dL (3.4-5.0) L 05/13/18 09:55 Prealbumin 39 mg/dL (20-40) 05/12/18 22:00 Lipase 131 U/L (73-393) 05/12/18 18:55 Urine Color Yellow (Yellw/Straw) 05/12/18 21:56 Urine Clarity Cloudy (Clear) H 05/12/18 21:56 Urine pH 6.0 (5.0-8.5) 05/12/18 21:56 Ur Specific [place] 1.013 (1.002-1.035) 05/12/18 21:56 Urine Protein 100 mg/dL (Neg-Trace) H 05/12/18 21:56 Urine Glucose (UA) Negative mg/dL (Negative) 05/12/18 21:56 Urine Ketones Negative mg/dL (Negative) 05/12/18 21:56 Urine Occult Blood Negative (Negative) 05/12/18 21:56 Urine Nitrate Negative (Negative) 05/12/18 21:56 Urine Bilirubin Negative (Negative) 05/12/18 21:56 Urine Urobilinogen Less than 2 mg/dL (Less than 2) 05/12/18 21:56 Ur Leukocyte Esterase Trace (Negative) H 05/12/18 21:56 Urine RBC 20 /hpf (0-3) H 05/12/18 21:56 Urine WBC 26 /hpf (0-5) H 05/12/18 21:56 Ur Squamous Epith Cells 1 /hpf (0-5) 05/12/18 21:56 Hyaline Casts 4 /lpf (0-3) 05/12/18 21:56 Urine Mucus Few /lpf (Occasional) H 18 21:56 Urine Yeast Rare /hpf (None) H 05/12/18 21:56 Micro UA Comment Culture indicated 05/12/18 21:56 Ur Microscopic Review Not Reportable 05/12/18 21:56 Urine Culture Comments Culture indicated 05/12/18 21:56 Urine Osmolality 365 mosm/kg (300-1300) 05/12/18 21:56 Ur Random Creatinine 111 mg/dL (27-300) 05/12/18 21:56 Ur Random Sodium Less than 5 meq/L 05/12/18 21:56 Nasal Screen MRSA (PCR) Not detected (Negative) 05/12/18 23:35 Impressions Abdomen/Pelvis CT 05/12/18 18:31 CONCLUSION: 1. 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 There is a potential contained rupture of the gallbladder with an apparent discontinuity seen inferiorly and laterally and with increased pericholecystic fluid. There is also marked wall thickening of the duodenum but a nonobstructive bowel gas pattern. No free air. 2. Difficult to separate from adjacent bowel loops but multiple metastatic masses are suspected in the pelvic cavity as described. Objective Remarks: GENERAL: This is a small chronically ill-appearing ,cachectic, malnourished female currently in no distress lying semirecumbent in bed SKIN: Warm and dry. HEAD: Atraumatic. Normocephalic. EYES: Pupils equal and round. No scleral icterus. No injection or drainage. ENT: No nasal bleeding or discharge. Mucous membranes pink but dry. NECK: Trachea midline. No JVD. CARDIOVASCULAR: Normal rate, regular rhythm. RESPIRATORY: No accessory muscle use. Clear to auscultation. Breath sounds equal bilaterally. GASTROINTESTINAL: Abdomen soft, non-tender, nondistended. No guarding. Ostomy bag draining. MUSCULOSKELETAL: Extremities without clubbing, cyanosis, or edema. No obvious deformities. NEUROLOGICAL: Awake and alert. RASS 0. No gross focal/sensory deficits. Follows commands in all 4 extremities. Assessment and Plan - Assessment and Plan Plan: Assessment: 67-year-old female with stage IV recurrent metastatic colon cancer. Had a long discussion with the patient and her 2 adult living children. This is the same presentation that she had a few weeks ago with severe dehydration. I am concerned that she is by far too frail and deconditioned to undergo any sort of palliative chemotherapy efforts. Certainly her non-oncologic acute illness with severe dehydration and severe oliguric renal failure with a creatinine greater than 9 are in and of themselves life-threatening. I explained that in order to treat her organ failure and severe electrolyte derangements, this was likely going to take 1-2 weeks in an inpatient setting. However, I do not see any of these efforts as improving her overall quality of life or at this point, length of life. I explained that she has a terminal disease process, and that without the strength to undergo palliative chemotherapy, hospice was most likely the most appropriate and best option for her at the present time. The patient and her family agree, and wish to pursue hospice and comfort measures. We did also discuss CODE STATUS, and she elects to be a DNR. We will admit the patient for IV fluids and attempt to correct his many of the electrode derangements as we can overnight tonight. I have asked hospice services to discuss options with the morning. The patient does state that she would like to go home tomorrow if possible. For now the patient is quite critically ill and we are still aggressive with her medical goals short of resuscitative efforts for the night. She has severe life-threatening hyponatremia and dehydration. Active problems: Worsening stage IV recurrent metastatic colon cancer Severe life-threatening dehydration Acute intravascular volume depletion Severe life-threatening hyponatremia Hypovolemic hyponatremia Hypokalemia Severe oliguric acute kidney injury Protein calorie malnutrition Plan: Hospice consult -planned today, await recommendations DNR CODE STATUS Oncology has been consulted Palliative care consult Crystalloid maintenance IV fluids Trend serial sodiums Check urine sodium, urine and serum osmolality, urine creatinine. Strict I's and O's [place] has been placed for hourly I's and O's, likely be removed in the morning Encourage p.o. intake Continue clear liquids SCDs Lovenox Pepcid Continue PT evaluation and treatment Monitor CBC, CMP Send prealbumin Level 2 follow-up Code Status: DNR Discussed Condition With: Patient, patient's son, and MATERIAL ASSISTANT at bedside she remains hopeful to be discharged to hospice today.
--- NOTE | 2018-05-13 14:48 | P.CON ---
History of Present Illness Service: oncology Consult date: 05/13/18 Primary Care Provider: Kristyn Chatman Chief Complaint: weakness History of Present Illness: Patient is a 67 year old lady with stage IV colon cancer admitted to the hospital with failure to thrive. She had recent follow up in clinic with my colleague Dr. Walsh. At that visit discussed hospice vs palliative chemotherapy and patient chose to initiate palliative chemotherapy with start date set for 05/17/2018. Since she has been home she reports that she has been unable to perform ADLs. She spends the majority of her time sleeping and resting. On admission she was found to have severe dehydration, hyponatremia. CT scan with progressive disease. Review of Systems All other systems reviewed negative except as stated in HPI PMFSH - History History Provided By: Patient, Family Member, Medical Record - Medical History Medical History: Medical History (Last Reviewed 05/13/18 @ 11:27 by Zuly Spicer, PT) Abdominal mass Bunion Colon cancer H/O pelvic mass History of chemotherapy Hydronephrosis Kidney failure Migraines Mucinous adenocarcinoma of colon - Surgical History Surgical History: Surgical History (Last Reviewed 05/13/18 @ 11:27 by Zuly Spicer, PT) Colostomy in place (Chronic) History of colon resection Hx of appendectomy Hx of cholecystectomy Port catheter in place S/P colon resection S/P cystoscopy with ureteral stent placement S/P exploratory laparotomy History of hysterectomy - Family History Family History: Family History (Last Reviewed 05/13/18 @ 11:27 by Zuly Spicer, PT) Other Family history non-contributory - Tobacco History Second Hand Smoke Exposure: No Smoking Status: Never smoker - Alcohol History How Often Do You Have a Drink Containing Alcohol: Never - Substance Use History Substance History: No History of Abuse - Travel History Recent Travel in the [place] Within the Last 8 Weeks: No Recent Travel Out of the Country Within the Last 8 Weeks: No - Immunization History Tetanus Immunization: Unsure Hx Influenza Vaccine This Season: Yes Medications and Allergies Active Medications: Active Medications Acetaminophen (Tylenol) 650 mg PO Q6H PRN PRN Reason: TEMPERATURE > 101 F Albuterol (Duoneb Neb (Prn)) 1 ampul NEB Q2HR NEB PRN PRN Reason: WHEEZING Chlorhexidine Gluconate (Chlorhexidine 2% Cloth) 3 pack TOPICAL DAILY@0400 [facility] Stop: 05/18/18 03:59 Last Admin: 05/13/18 03:41 Dose: 3 pack Chlorhexidine Gluconate (Chlorhexidine 2% Cloth) 3 pack TOPICAL DAILY@0400 PRN PRN Reason: Extra cloth needed Stop: 05/18/18 03:59 Dextrose (D50w Vial) 50 ml IV.PUSH UNSCH PRN PRN Reason: PER HYPOGLYCEMIA PROTOCOL Enoxaparin Sodium (Lovenox Inj) 40 mg SQ DAILY [facility] Last Admin: 05/13/18 08:04 Dose: 40 mg Glucagon (Glucagon Inj) 1 mg OTHER PRN PRN PRN Reason: for Hypoglycemia Protocol Hydromorphone HCl (Dilaudid Pf Inj) 0.25 mg IV.PUSH Q1H PRN PRN Reason: pain 8-10 or not taking po Lactated Ringer's (Lr 1000 Ml Inj) 1,000 mls @ 100 mls/hr IV.CONT .Q10H [facility] Last Admin: 05/13/18 10:14 Dose: 100 mls/hr Insulin Human Regular (Novolin R Correctional Sugar Inj) 0 units SQ Q6HR [facility]; Protocol Last Admin: 05/13/18 12:00 Dose: Not Given Ondansetron HCl (Zofran Inj) 4 mg IV.PUSH Q6H PRN PRN Reason: NAUSEA OR VOMITING Oxycodone HCl (Roxicodone) 5 mg PO Q4H PRN PRN Reason: Pain 1-5 Last Admin: 05/13/18 11:24 Dose: 5 mg Sodium Chloride (Ns Flush) 2 ml IV.FLUSH PRN PRN PRN Reason: FLUSH AFTER USING IV ACCESS Sodium Chloride (Ns Flush) 2 ml IV.FLUSH UNSCH PRN PRN Reason: FLUSH AFTER USING IV ACCESS Allergies Allergy/AdvReac Type Severity Reaction Status Date / Time No Known Allergies Allergy Verified 05/13/18 00:06 Home Medications Medication Instructions Recorded Confirmed Type hydrocodone-acetaminophen [[place]] 0.5 - 1 tab PO Q6H PRN 04/21/18 05/12/18 History Physical Exam Vital signs: Vital Signs 05/12/18 18:20 05/12/18 19:26 05/12/18 22:18 Temperature 97.5 F L Pulse Rate 77 74 88 Respiratory Rate 18 16 16 Blood Pressure 110/63 101/59 L 107/59 L Pulse Oximetry 99 99 96 05/12/18 23:00 05/12/18 23:27 05/12/18 23:33 Temperature 98.0 F Pulse Rate 81 85 Respiratory Rate 12 17 Blood Pressure 108/72 108/72 Pulse Oximetry 100 96 100 05/13/18 00:00 05/13/18 01:00 05/13/18 02:00 Temperature Pulse Rate 79 75 71 Respiratory Rate 16 30 H 17 Blood Pressure 97/53 L 99/54 L 97/59 L Pulse Oximetry 98 98 99 05/13/18 03:00 05/13/18 04:00 05/13/18 05:00 Temperature 98.2 F Pulse Rate 75 71 71 Respiratory Rate 17 16 19 Blood Pressure 116/51 L 93/52 L 93/51 L Pulse Oximetry 99 96 99 05/13/18 06:00 05/13/18 07:00 05/13/18 08:00 Temperature 98.0 F Pulse Rate 71 70 66 Respiratory Rate 25 H 23 17 Blood Pressure 88/51 L 89/53 L 97/54 L Pulse Oximetry 94 L 95 95 05/13/18 09:00 05/13/18 10:00 05/13/18 10:01 Temperature Pulse Rate 65 88 Respiratory Rate 17 31 H Blood Pressure 97/54 L Pulse Oximetry 99 95 83 L 05/13/18 10:04 05/13/18 10:09 05/13/18 11:00 Temperature Pulse Rate 75 75 Respiratory Rate 32 H 24 Blood Pressure 76/40 L 99/54 L 85/53 L Pulse Oximetry 98 100 05/13/18 12:00 Temperature 97.9 F Pulse Rate 70 Respiratory Rate 20 Blood Pressure 94/53 L Pulse Oximetry 98 Intake & Output 05/12/18 05/13/18 05/13/18 18:59 06:59 18:59 Intake Total 4110 / 4110 1000 / 1000 Output Total 805 / 805 1185 / 1185 Balance 3305 / 3305 -185 / -185 Weight 46.266 kg 47.5 kg Intake: IV 2110 / 2110 1000 / 1000 LR 1000 mL Inj 1,000 ML @ 100 1000 / 1000 mls/hr IV.CONT .Q10H JANESSA Rx#: [id number] Calcium Gluconate Inj 1 GM In 110 / 110 NS Inj 100 ML @ 110 mls/hr IV. SIG ONCE ONE Rx#:[id number] NS Inj 1,000 ML @ 1000 mls/hr 1999 IV.SIG BOLUS JANESSA Rx#:[id number] Other 1999 Output: Urine 50 / 50 Urine Amount (Catheter) 355 / 355 385 / 385 Indwelling Urethral Catheter 355 / 355 385 / 385 Stool Amount (Stoma) 400 / 400 800 / 800 Right Lower Abdomen 400 / 400 800 / 800 Other: Other Intake Source Saline Solution Date of Last Bowel Movement 05/13/18 05/13/18 Weight On Admission 50 kg - Constitutional thin, cachectic, chronically ill appearing - Routine HEENT Exam Head: Present: normocephalic, atraumatic Eye: Present: EOMI, PERRL - Routine Neck Exam Present: full ROM - Routine Respiratory Exam Comments: No accessory muscle use - Routine Abdominal Exam Comments: non distended - Routine Extremities Exam Comments: no edema - Routine Skin Exam Present: intact - Routine Neurological Exam Present: alert, oriented X3 - Routine Psychiatric Exam Present: normal affect - Urinary Catheter Management Indwelling Urethral Catheter Cath placed during this visit: yes Reason for continuing: Hourly intake/output Insertion date: 05/12/18 Insertion time: 22:08 Results - Labs CBC & Chem 7: 05/13/18 05:27 05/13/18 09:55 Labs: Laboratory Results - last 24 hr 05/12/18 05/12/18 05/12/18 18:55 18:55 21:56 WBC 14.0 H RBC 4.59 Hgb 13.2 Hct 37.2 MCV 81.2 MCH 28.8 MCHC 35.4 RDW 19.0 H Plt Count 449 D MPV 6.8 L Neut % (Auto) 64.3 Lymph % (Auto) 25.5 [place] % (Auto) 9.6 H Eos % (Auto) 0.3 Baso % (Auto) 0.3 Neut # (Auto) 9.0 H Lymph # (Auto) 3.6 [place] # (Auto) 1.3 H Eos # (Auto) 0.0 Baso # (Auto) 0.0 WBC Differential . Differential Comment Auto diff final Sodium 116 L* Potassium 6.5 H Chloride 74 L Carbon Dioxide 27.9 Anion Gap 14 BUN 149 H Creatinine 9.45 H Estimated GFR 4 L POC Glucose Random Glucose 93 Osmolality Calcium 9.3 Phosphorus Magnesium 1.6 Total Bilirubin 0.7 AST 24 ALT 51 Alkaline Phosphatase 308 H Total Protein 8.1 Albumin 3.5 Prealbumin Lipase 131 Urine Color Yellow Urine Clarity Cloudy H Urine pH 6.0 Ur Specific [place] 1.013 Urine Protein 100 H Urine Glucose (UA) Negative Urine Ketones Negative Urine Occult Blood Negative Urine Nitrate Negative Urine Bilirubin Negative Urine Urobilinogen Less than 2 Ur Leukocyte Esterase Trace H Urine RBC 20 H Urine WBC 26 H Ur Squamous Epith Cells 1 Hyaline Casts 4 Urine Mucus Few H Urine Yeast Rare H Micro UA Comment Culture indicated Ur Microscopic Review Not Reportable Urine Culture Comments Culture indicated Urine Osmolality Ur Random Creatinine Ur Random Sodium Nasal Screen MRSA (PCR) 05/12/18 05/12/18 05/12/18 21:56 21:56 21:56 WBC RBC Hgb Hct MCV MCH MCHC RDW Plt Count MPV Neut % (Auto) Lymph % (Auto) [place] % (Auto) Eos % (Auto) Baso % (Auto) Neut # (Auto) Lymph # (Auto) [place] # (Auto) Eos # (Auto) Baso # (Auto) WBC Differential Differential Comment Sodium Potassium Chloride Carbon Dioxide Anion Gap BUN Creatinine Estimated GFR POC Glucose Random Glucose Osmolality Calcium Phosphorus Magnesium Total Bilirubin AST ALT Alkaline Phosphatase Total Protein Albumin Prealbumin Lipase Urine Color Urine Clarity Urine pH Ur Specific [place] Urine Protein Urine Glucose (UA) Urine Ketones Urine Occult Blood Urine Nitrate Urine Bilirubin Urine Urobilinogen Ur Leukocyte Esterase Urine RBC Urine WBC Ur Squamous Epith Cells Hyaline Casts Urine Mucus Urine Yeast Micro UA Comment Ur Microscopic Review Urine Culture Comments Urine Osmolality 365 Ur Random Creatinine 111 Ur Random Sodium Less than 5 Nasal Screen MRSA (PCR) 05/12/18 05/12/18 05/12/18 22:00 22:00 23:35 WBC RBC Hgb Hct MCV MCH MCHC RDW Plt Count MPV Neut % (Auto) Lymph % (Auto) [place] % (Auto) Eos % (Auto) Baso % (Auto) Neut # (Auto) Lymph # (Auto) [place] # (Auto) Eos # (Auto) Baso # (Auto) WBC Differential Differential Comment Sodium 122 L* Potassium 6.4 H Chloride 84 L D Carbon Dioxide 26.4 Anion Gap 12 BUN 143 H Creatinine 8.82 H Estimated GFR 4 L POC Glucose Random Glucose 77 Osmolality 306 H Calcium 8.9 Phosphorus 8.4 H Magnesium 1.6 Total Bilirubin 0.6 AST 23 ALT 45 Alkaline Phosphatase 278 H Total Protein 7.3 D Albumin 3.2 L Prealbumin 39 Lipase Urine Color Urine Clarity Urine pH Ur Specific [place] Urine Protein Urine Glucose (UA) Urine Ketones Urine Occult Blood Urine Nitrate Urine Bilirubin Urine Urobilinogen Ur Leukocyte Esterase Urine RBC Urine WBC Ur Squamous Epith Cells Hyaline Casts Urine Mucus Urine Yeast Micro UA Comment Ur Microscopic Review Urine Culture Comments Urine Osmolality Ur Random Creatinine Ur Random Sodium Nasal Screen MRSA (PCR) Not detected 05/13/18 05/13/18 05/13/18 05:27 06:06 07:53 WBC 10.4 RBC 3.51 L Hgb 10.3 L D Hct 29.3 L MCV 83.4 MCH 29.4 MCHC 35.2 RDW 18.6 H Plt Count 327 MPV 6.6 L Neut % (Auto) 53.9 Lymph % (Auto) 33.6 [place] % (Auto) 11.7 H Eos % (Auto) 0.5 Baso % (Auto) 0.3 Neut # (Auto) 5.6 Lymph # (Auto) 3.5 [place] # (Auto) 1.2 H Eos # (Auto) 0.1 Baso # (Auto) 0.0 WBC Differential . Differential Comment Auto diff final Sodium Potassium Chloride Carbon Dioxide Anion Gap BUN Creatinine Estimated GFR POC Glucose 99 98 Random Glucose Osmolality Calcium Phosphorus Magnesium Total Bilirubin AST ALT Alkaline Phosphatase Total Protein Albumin Prealbumin Lipase Urine Color Urine Clarity Urine pH Ur Specific [place] Urine Protein Urine Glucose (UA) Urine Ketones Urine Occult Blood Urine Nitrate Urine Bilirubin Urine Urobilinogen Ur Leukocyte Esterase Urine RBC Urine WBC Ur Squamous Epith Cells Hyaline Casts Urine Mucus Urine Yeast Micro UA Comment Ur Microscopic Review Urine Culture Comments Urine Osmolality Ur Random Creatinine Ur Random Sodium Nasal Screen MRSA (PCR) 05/13/18 09:55 WBC RBC Hgb Hct MCV MCH MCHC RDW Plt Count MPV Neut % (Auto) Lymph % (Auto) [place] % (Auto) Eos % (Auto) Baso % (Auto) Neut # (Auto) Lymph # (Auto) [place] # (Auto) Eos # (Auto) Baso # (Auto) WBC Differential Differential Comment Sodium 127 L Potassium 4.3 D Chloride 86 L Carbon Dioxide 27.4 Anion Gap 14 BUN 117 H Creatinine 7.35 H Estimated GFR 6 L POC Glucose Random Glucose 92 Osmolality Calcium 8.6 Phosphorus 7.1 H D Magnesium 1.4 L Total Bilirubin 0.6 AST 24 ALT 37 Alkaline Phosphatase 216 H Total Protein 6.4 D Albumin 2.7 L Prealbumin Lipase Urine Color Urine Clarity Urine pH Ur Specific [place] Urine Protein Urine Glucose (UA) Urine Ketones Urine Occult Blood Urine Nitrate Urine Bilirubin Urine Urobilinogen Ur Leukocyte Esterase Urine RBC Urine WBC Ur Squamous Epith Cells Hyaline Casts Urine Mucus Urine Yeast Micro UA Comment Ur Microscopic Review Urine Culture Comments Urine Osmolality Ur Random Creatinine Ur Random Sodium Nasal Screen MRSA (PCR) - Imaging Impressions Abdomen/Pelvis CT 05/12/18 18:31 CONCLUSION: 1. 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 There is a potential contained rupture of the gallbladder with an apparent discontinuity seen inferiorly and laterally and with increased pericholecystic fluid. There is also marked wall thickening of the duodenum but a nonobstructive bowel gas pattern. No free air. 2. Difficult to separate from adjacent bowel loops but multiple metastatic masses are suspected in the pelvic cavity as described. Assessment and Plan - Plan Metastatic colon cancer: not a candidate for chemotherapy due to declining performance status, inability to perform ADLs. Risks of chemotherapy would outweigh benefit. Hospice consult pending. Discussed above with pateint and her son via telephone both are in agreement. Questions answered to their satisfaction.
[2018-05-14] MEDS: Insulin NovoLIN Regular Correctional Sugar Inj SQ SCH ×4 (00:43→18:27)
--- NOTE | 2018-05-14 01:17 | ECG ---
Date Performed: 05/12/2018 Time Performed: 19:19:19 PTAGE: 67 years EKG: Sinus rhythm POSSIBLE LEFT ATRIAL ENLARGEMENT MODERATE ST DEPRESSION NON-SPECIFIC ST ELEVATION THROUGHOUT, POSSIB LE PERICARDITIS, CLINICAL CORRELATION ABNORMAL ECG PREVIOUS TRACING : 04/21/2018 18.48 Since the previous tracing, no significant change noted DOCTOR: Castro Carter Interpretating Date/Time 05/14/2018 01:15:15
[2018-05-14] MEDS: Chlorhexidine Gluconate 2% 1 Pack (2 Cloths) TOPICAL SCH (04:00)
[2018-05-14 06:05] LABS: Baso % (Auto) 0.5 % (0.0-2.0); Eos # (Auto) 0.1 th/mm3 (0.0-0.4); Eos % (Auto) 0.7 % (0.0-4.0); Hematocrit 30.4 % (35.0-46.0); Hemoglobin 10.7 gm/dL (11.6-15.3); Lymph # (Auto) 3.1 th/mm3 (1.0-4.8); Mean Corpuscular Hemoglobin 29.4 pg (27.0-34.0); Mean Corpuscular Volume 83.9 fL (80.0-100.0); Mean Platelet Volume 6.1 fL (7.0-11.0); Mono % (Auto) 11.2 % (0.0-8.0); Neut # (Auto) 4.9 th/mm3 (1.8-7.7); Neut % (Auto) 53.6 % (16.0-70.0); Platelet Count 297 th/mm3 (150-450); Red Blood Count 3.63 mil/mm3 (4.00-5.30); Red Cell Distribution Width 18.6 % (11.6-17.2); White Blood Count 9.1 th/mm3 (4.0-11.0)
[2018-05-14 06:40] LABS: Alanine Aminotransferase 34 U/L (10-53); Albumin 2.6 g/dL (3.4-5.0); Alkaline Phosphatase 187 U/L (45-117); Anion Gap 12 meq/L (5-15); Aspartate Aminotransferase 20 U/L (15-37); Blood Urea Nitrogen 86 mg/dL (7-18); Calcium 8.3 mg/dL (8.5-10.1); Carbon Dioxide 28.5 meq/L (21.0-32.0); Chloride 91 meq/L (98-107); Glomerular Filtration Rate 7 mL/min (>89); Glucose,Random 101 mg/dL (74-106); Magnesium 1.3 mg/dL (1.5-2.5); Phosphorus 5.1 mg/dL (2.5-4.9); Potassium 3.7 meq/L (3.5-5.1); Sodium 131 meq/L (136-145); Total Protein 6.1 g/dL (6.4-8.2)
[2018-05-14] MEDS: Enoxaparin Inj 40 MG/0.4 ML Syringe SQ SCH (08:16)
--- NOTE | 2018-05-14 10:53 | P.PN ---
Subjective Interval history: Follow-up stage IV metastases colon cancer/electrolyte derangement syndrome/ dehydration May 14, 2018-patient seen and examined, she would like to go home with hospice noted to be with her son. She understands at this point notes her diagnosis is terminal. Physical Exam Vital signs: Vital Signs 05/13/18 11:00 05/13/18 12:00 05/13/18 13:00 Temperature 97.9 F Pulse Rate 75 70 80 Respiratory Rate 24 20 36 H Blood Pressure 85/53 L 94/53 L Pulse Oximetry 100 98 95 05/13/18 13:03 05/13/18 14:00 05/13/18 15:00 Temperature Pulse Rate 70 68 70 Respiratory Rate 27 H 16 25 H Blood Pressure 104/57 L 112/53 L Pulse Oximetry 92 L 95 88 L 05/13/18 15:01 05/13/18 16:00 05/13/18 17:00 Temperature 98.1 F Pulse Rate 73 68 72 Respiratory Rate 25 H 31 H 24 Blood Pressure 102/61 95/59 L 105/54 L Pulse Oximetry 99 97 98 05/13/18 18:00 05/13/18 19:00 05/13/18 19:01 Temperature Pulse Rate 84 77 79 Respiratory Rate 18 22 21 Blood Pressure 108/58 L 97/52 L Pulse Oximetry 97 82 L 93 L 05/13/18 20:00 05/13/18 21:00 05/13/18 21:01 Temperature 98.2 F Pulse Rate 74 73 67 Respiratory Rate 33 H 33 H 29 H Blood Pressure 93/53 L 112/53 L Pulse Oximetry 100 98 100 05/13/18 22:00 05/13/18 23:00 05/14/18 00:00 Temperature Pulse Rate 71 68 67 Respiratory Rate 21 19 13 Blood Pressure 113/57 L 100/59 L 104/59 L Pulse Oximetry 100 99 98 05/14/18 01:00 05/14/18 02:00 05/14/18 03:00 Temperature Pulse Rate 74 70 64 Respiratory Rate 14 27 H 28 H Blood Pressure 103/60 108/56 L 99/54 L Pulse Oximetry 98 98 99 05/14/18 04:00 05/14/18 05:00 05/14/18 05:01 Temperature 98.7 F Pulse Rate 67 76 76 Respiratory Rate 16 25 H 14 Blood Pressure 102/58 L 108/67 Pulse Oximetry 97 96 98 05/14/18 06:00 05/14/18 07:00 05/14/18 08:00 Temperature 97.8 F Pulse Rate 68 75 87 Respiratory Rate 23 19 28 H Blood Pressure 101/56 L 98/55 L Pulse Oximetry 100 98 90 L 05/14/18 08:01 05/14/18 09:00 Temperature Pulse Rate 105 H 74 Respiratory Rate 26 H 31 H Blood Pressure 105/51 L 106/58 L Pulse Oximetry 96 99 Intake & Output 05/13/18 05/14/18 05/14/18 18:59 06:59 18:59 Intake Total 1999 / 1999 1000 / 1000 1768 / 1768 Output Total 2292 / 2292 820 / 820 5390 / 5390 Balance -292 / -292 180 / 180 -3622 / -3622 Weight 47 kg Intake: IV 1000 / 1000 1000 / 1000 1368 / 1368 LR 1000 mL Inj 1,000 ML @ 100 1000 / 1000 1000 / 1000 1368 / 1368 mls/hr IV.CONT .Q10H [facility] Rx#: [id number] Oral 1000 / 1000 400 / 400 Output: Urine Amount (Catheter) 692 / 692 820 / 820 190 / 190 Indwelling Urethral Catheter 692 / 692 820 / 820 190 / 190 Stool Amount (Stoma) 1600 / 1600 5200 / 5200 Right Lower Abdomen 1600 / 1600 5200 / 5200 Other: Date of Last Bowel Movement 05/13/18 05/14/18 05/14/18 Narrative: GENERAL: Cachectic critically ill patient however with a big smile on her face SKIN: Warm and dry. HEAD: Atraumatic. Normocephalic. EYES: Pupils equal and round. No scleral icterus. No injection or drainage. ENT: No nasal bleeding or discharge. Mucous membranes pink and moist. NECK: Trachea midline. No JVD. CARDIOVASCULAR: Regular rate and rhythm. RESPIRATORY: No accessory muscle use. Clear to auscultation. Breath sounds equal bilaterally. GASTROINTESTINAL: Abdomen soft, non-tender, nondistended. Hepatic and splenic margins not palpable. MUSCULOSKELETAL: Extremities without clubbing, cyanosis, or edema. No obvious deformities. NEUROLOGICAL: Awake and alert. No obvious cranial nerve deficits. Motor grossly within normal limits. Five out of 5 muscle strength in the arms and legs. Normal speech. PSYCHIATRIC: Appropriate mood and affect; insight and judgment normal. - Urinary Catheter Management Indwelling Urethral Catheter Cath placed during this visit: yes Reason for continuing: Hourly intake/output Insertion date: 05/12/18 Insertion time: 22:08 Results - Labs CBC & Chem 7: 05/14/18 05:42 05/14/18 05:42 Laboratory Results - last 24 hr 05/13/18 05/13/18 05/13/18 09:55 17:46 18:07 WBC RBC Hgb Hct MCV MCH MCHC RDW Plt Count MPV Neut % (Auto) Lymph % (Auto) [place] % (Auto) Eos % (Auto) Baso % (Auto) Neut # (Auto) Lymph # (Auto) [place] # (Auto) Eos # (Auto) Baso # (Auto) WBC Differential Differential Comment Sodium 127 L 128 L Potassium 4.3 D Chloride 86 L Carbon Dioxide 27.4 Anion Gap 14 BUN 117 H Creatinine 7.35 H Estimated GFR 6 L POC Glucose 93 Random Glucose 92 Calcium 8.6 Phosphorus 7.1 H D Magnesium 1.4 L Total Bilirubin 0.6 AST 24 ALT 37 Alkaline Phosphatase 216 H Total Protein 6.4 D Albumin 2.7 L 05/13/18 05/14/18 05/14/18 22:33 05:41 05:42 WBC 9.1 RBC 3.63 L Hgb 10.7 L Hct 30.4 L MCV 83.9 MCH 29.4 MCHC 35.0 RDW 18.6 H Plt Count 297 MPV 6.1 L Neut % (Auto) 53.6 Lymph % (Auto) 34.0 [place] % (Auto) 11.2 H Eos % (Auto) 0.7 Baso % (Auto) 0.5 Neut # (Auto) 4.9 Lymph # (Auto) 3.1 [place] # (Auto) 1.0 H Eos # (Auto) 0.1 Baso # (Auto) 0.0 WBC Differential . Differential Comment Auto diff final Sodium 130 L Potassium Chloride Carbon Dioxide Anion Gap BUN Creatinine Estimated GFR POC Glucose 102 Random Glucose Calcium Phosphorus Magnesium Total Bilirubin AST ALT Alkaline Phosphatase Total Protein Albumin 05/14/18 05:42 WBC RBC Hgb Hct MCV MCH MCHC RDW Plt Count MPV Neut % (Auto) Lymph % (Auto) [place] % (Auto) Eos % (Auto) Baso % (Auto) Neut # (Auto) Lymph # (Auto) [place] # (Auto) Eos # (Auto) Baso # (Auto) WBC Differential Differential Comment Sodium 131 L Potassium 3.7 Chloride 91 L Carbon Dioxide 28.5 Anion Gap 12 BUN 86 H Creatinine 5.95 H Estimated GFR 7 L POC Glucose Random Glucose 101 Calcium 8.3 L Phosphorus 5.1 H D Magnesium 1.3 L Total Bilirubin 0.5 AST 20 ALT 34 Alkaline Phosphatase 187 H Total Protein 6.1 L Albumin 2.6 L Microbiology 05/12/18 21:56 Clean Catch Urine Urine Culture - Final No growth in 48 hours - Procedures None Assessment and Plan - Plan 67-year-old female with Metastases stage IV colon cancer Patient is not a candidate for any palliative chemotherapy at this time She is agreeable for hospice however at home Appreciate input from oncology Multiple electrolyte derangement syndromes Replace per ICU protocol Dehydration Resolved with IV fluid hydration Protein caloric malnutrition Secondary to end-stage stage IV colon cancer Patient at this time is agreeable for hospice at home Severe oliguric acute kidney injury Second 2 dehydration Improving with IV fluid hydration However, patient is now agreeable for hospice Likely discharge patient at home with hospice within the next 24-hour Discharge Planning: Likely discharge patient at home with hospice within the next 24-hour
--- NOTE | 2018-05-14 12:04 | P.DIET ---
Nutritional Evaluation Type of nutrition evaluation: initial Nutrition screening: Weight Loss > 10 lbs Screening comments: Per MD note today: "Pt with stage IV metastases colon cancer/electrolyte derangement syndrome/dehydration May 14, 2018-patient seen and examined, she would like to go home with hospice noted to be with her son. She understands at this point notes her diagnosis is terminal." Please consult dietitian if needed.
--- NOTE | 2018-05-14 12:28 | P.PNONC ---
Subjective Interval history: Resting comfortably in bed. s/p discussion with hospice team. Objective Vital Signs/Intake & Output: Vital Signs 05/13/18 13:00 05/13/18 13:03 05/13/18 14:00 Temperature Pulse Rate 80 70 68 Respiratory Rate 36 H 27 H 16 Blood Pressure 104/57 L 112/53 L Pulse Oximetry 95 92 L 95 05/13/18 15:00 05/13/18 15:01 05/13/18 16:00 Temperature 98.1 F Pulse Rate 70 73 68 Respiratory Rate 25 H 25 H 31 H Blood Pressure 102/61 95/59 L Pulse Oximetry 88 L 99 97 05/13/18 17:00 05/13/18 18:00 05/13/18 19:00 Temperature Pulse Rate 72 84 77 Respiratory Rate 24 18 22 Blood Pressure 105/54 L 108/58 L Pulse Oximetry 98 97 82 L 05/13/18 19:01 05/13/18 20:00 05/13/18 21:00 Temperature 98.2 F Pulse Rate 79 74 73 Respiratory Rate 21 33 H 33 H Blood Pressure 97/52 L 93/53 L Pulse Oximetry 93 L 100 98 05/13/18 21:01 05/13/18 22:00 05/13/18 23:00 Temperature Pulse Rate 67 71 68 Respiratory Rate 29 H 21 19 Blood Pressure 112/53 L 113/57 L 100/59 L Pulse Oximetry 100 100 99 05/14/18 00:00 05/14/18 01:00 05/14/18 02:00 Temperature Pulse Rate 67 74 70 Respiratory Rate 13 14 27 H Blood Pressure 104/59 L 103/60 108/56 L Pulse Oximetry 98 98 98 05/14/18 03:00 05/14/18 04:00 05/14/18 05:00 Temperature 98.7 F Pulse Rate 64 67 76 Respiratory Rate 28 H 16 25 H Blood Pressure 99/54 L 102/58 L Pulse Oximetry 99 97 96 05/14/18 05:01 05/14/18 06:00 05/14/18 07:00 Temperature Pulse Rate 76 68 75 Respiratory Rate 14 23 19 Blood Pressure 108/67 101/56 L 98/55 L Pulse Oximetry 98 100 98 05/14/18 08:00 05/14/18 08:01 05/14/18 09:00 Temperature 97.8 F Pulse Rate 87 105 H 74 Respiratory Rate 28 H 26 H 31 H Blood Pressure 105/51 L 106/58 L Pulse Oximetry 90 L 96 99 05/14/18 10:00 05/14/18 11:00 05/14/18 11:01 Temperature Pulse Rate 82 68 70 Respiratory Rate Blood Pressure 111/55 L 98/47 L Pulse Oximetry 99 93 L 100 05/14/18 12:00 Temperature 98.0 F Pulse Rate 65 Respiratory Rate Blood Pressure 91/50 L Pulse Oximetry 95 Intake & Output 05/13/18 05/14/18 05/14/18 18:59 06:59 18:59 Intake Total 1999 / 1999 1000 / 1000 1768 / 1768 Output Total 2292 / 2292 820 / 820 5540 / 5540 Balance -292 / -292 180 / 180 -3772 / -3772 Weight 47 kg Intake: IV 1000 / 1000 1000 / 1000 1368 / 1368 LR 1000 mL Inj 1,000 ML @ 100 1000 / 1000 1000 / 1000 1368 / 1368 mls/hr IV.CONT .Q10H [facility] Rx#: [id number] Oral 1000 / 1000 400 / 400 Output: Urine Amount (Catheter) 692 / 692 820 / 820 340 / 340 Indwelling Urethral Catheter 692 / 692 820 / 820 340 / 340 Stool Amount (Stoma) 1600 / 1600 5200 / 5200 Right Lower Abdomen 1600 / 1600 5200 / 5200 Other: Date of Last Bowel Movement 05/13/18 05/14/18 05/14/18 Result Diagrams: 05/14/18 05:42 05/14/18 05:42 Laboratory Results: Laboratory Results - last 24 hr 05/13/18 05/13/18 05/13/18 17:46 18:07 22:33 WBC RBC Hgb Hct MCV MCH MCHC RDW Plt Count MPV Neut % (Auto) Lymph % (Auto) [place] % (Auto) Eos % (Auto) Baso % (Auto) Neut # (Auto) Lymph # (Auto) [place] # (Auto) Eos # (Auto) Baso # (Auto) WBC Differential Differential Comment Sodium 128 L 130 L Potassium Chloride Carbon Dioxide Anion Gap BUN Creatinine Estimated GFR POC Glucose 93 Random Glucose Calcium Phosphorus Magnesium Total Bilirubin AST ALT Alkaline Phosphatase Total Protein Albumin 05/14/18 05/14/18 05/14/18 05:41 05:42 05:42 WBC 9.1 RBC 3.63 L Hgb 10.7 L Hct 30.4 L MCV 83.9 MCH 29.4 MCHC 35.0 RDW 18.6 H Plt Count 297 MPV 6.1 L Neut % (Auto) 53.6 Lymph % (Auto) 34.0 [place] % (Auto) 11.2 H Eos % (Auto) 0.7 Baso % (Auto) 0.5 Neut # (Auto) 4.9 Lymph # (Auto) 3.1 [place] # (Auto) 1.0 H Eos # (Auto) 0.1 Baso # (Auto) 0.0 WBC Differential . Differential Comment Auto diff final Sodium 131 L Potassium 3.7 Chloride 91 L Carbon Dioxide 28.5 Anion Gap 12 BUN 86 H Creatinine 5.95 H Estimated GFR 7 L POC Glucose 102 Random Glucose 101 Calcium 8.3 L Phosphorus 5.1 H D Magnesium 1.3 L Total Bilirubin 0.5 AST 20 ALT 34 Alkaline Phosphatase 187 H Total Protein 6.1 L Albumin 2.6 L 05/14/18 11:39 WBC RBC Hgb Hct MCV MCH MCHC RDW Plt Count MPV Neut % (Auto) Lymph % (Auto) [place] % (Auto) Eos % (Auto) Baso % (Auto) Neut # (Auto) Lymph # (Auto) [place] # (Auto) Eos # (Auto) Baso # (Auto) WBC Differential Differential Comment Sodium Potassium Chloride Carbon Dioxide Anion Gap BUN Creatinine Estimated GFR POC Glucose 140 H Random Glucose Calcium Phosphorus Magnesium Total Bilirubin AST ALT Alkaline Phosphatase Total Protein Albumin Culture Results: Microbiology 05/12/18 21:56 Urine Culture - Final Clean Catch Urine No growth in 48 hours Medications: Active Medications Generic Name Dose Route Start Last Admin Trade Name Freq PRN Reason Stop Dose Admin Chlorhexidine Gluconate 3 pack 05/13/18 04:00 05/14/18 04:00 Chlorhexidine 2% Cloth TOPICAL 05/18/18 03:59 3 pack DAILY@0400 JANESSA Administration Enoxaparin Sodium 40 mg 05/12/18 22:07 05/14/18 08:16 Lovenox Inj SQ 40 mg DAILY JANESSA Administration Lactated Ringer's 1,000 mls @ 100 mls/hr 05/12/18 21:15 05/14/18 11:00 Lr 1000 Ml Inj IV.CONT 100 mls/hr .Q10H JANESSA Infusion Insulin Human Regular 0 units 05/13/18 00:00 05/14/18 07:13 Novolin R Correctional Sugar Inj SQ Not Given Q6HR [facility] Protocol Oxycodone HCl 5 mg 05/12/18 21:06 05/14/18 10:17 Roxicodone PO 5 mg Q4H PRN Administration Pain 1-5 Objective Remarks: GENERAL: thin, chronically ill appearing HEAD: Normocephalic. EYES: No scleral icterus. RESPIRATORY: No accessory muscle use. EXTREMITIES: No edema. Thin extremities NEUROLOGICAL: No obvious focal deficit. Awake, alert, and oriented x3. PSYCHIATRIC: Appropriate mood and affect; insight and judgment normal. Assessment/Plan - Plan MEtastatic colon adenocarcinoma, not a candidate for chemotherapy due to poor performance status. She has been in contact with hospice services. Anticipate discharge home with hospice or to hospice care facility in next 1-2 days.
--- NOTE | 2018-05-14 13:59 | P.DS ---
Date of admission: 05/12/18 21:02 Primary care physician: Kristyn Chatman Brief History from admission: 67yF with recurrent stage IV metastatic colon cancer with multiple recent acute hospitalizations for complications related to her oncologic disease process. She most recently was admitted for severe dehydration, electrolyte disturbances including hyponatremia, and acute renal failure. She was discharged from that hospitalization and returned to Dr. Kumar's clinic, where per his note, the recommendation was for either hospice services vs. palliative chemotherapy. The patient at that time chose palliative chemotherapy. Her first round of palliative chemoTx is set for 05/17/2018. However, over the last week, she has been too fatigued to eat or get out of bed or drink. Her son has come to visit her and convinced her to seek medical attention. She is severely dehydrated. her sodium is 116, Cr > 9. CT abd/pelvis demonstrates advancement of disease. remainder of her ROS is negative, including specifically she denies fever, chills, n/v. baseline abd pain has not changed. denies chest pain, sob. DS: Summary Hospital Course: Patient with a history of Metastatic colon adenocarcinoma, not a candidate for chemotherapy due to poor performance status was admitted secondary to multiple electrolyte derangements syndrome for which she was started on replacement per ICU protocol and IV fluid hydration. Patient was seen by oncology, however as stated earlier she is not a candidate for any chemotherapy. Hospice was consulted and patient will be discharged to hospice care center on Tuesday, May 15, 2018. - Time Spent with Patient Total time spent providing and/or coordinating discharge services: Greater than 30 minutes - Quality: VTE Deep Vein Thrombosis/Pulmonary Embolism Present on Admission: No Exam Vital signs: Vital Signs 05/13/18 14:00 05/13/18 15:00 05/13/18 15:01 Temperature Pulse Rate 68 70 73 Respiratory Rate 16 25 H 25 H Blood Pressure 112/53 L 102/61 Pulse Oximetry 95 88 L 99 05/13/18 16:00 05/13/18 17:00 05/13/18 18:00 Temperature 98.1 F Pulse Rate 68 72 84 Respiratory Rate 31 H 24 18 Blood Pressure 95/59 L 105/54 L 108/58 L Pulse Oximetry 97 98 97 05/13/18 19:00 05/13/18 19:01 05/13/18 20:00 Temperature 98.2 F Pulse Rate 77 79 74 Respiratory Rate 22 21 33 H Blood Pressure 97/52 L 93/53 L Pulse Oximetry 82 L 93 L 100 05/13/18 21:00 05/13/18 21:01 05/13/18 22:00 Temperature Pulse Rate 73 67 71 Respiratory Rate 33 H 29 H 21 Blood Pressure 112/53 L 113/57 L Pulse Oximetry 98 100 100 05/13/18 23:00 05/14/18 00:00 05/14/18 01:00 Temperature Pulse Rate 68 67 74 Respiratory Rate 19 13 14 Blood Pressure 100/59 L 104/59 L 103/60 Pulse Oximetry 99 98 98 05/14/18 02:00 05/14/18 03:00 05/14/18 04:00 Temperature 98.7 F Pulse Rate 70 64 67 Respiratory Rate 27 H 28 H 16 Blood Pressure 108/56 L 99/54 L 102/58 L Pulse Oximetry 98 99 97 05/14/18 05:00 05/14/18 05:01 05/14/18 06:00 Temperature Pulse Rate 76 76 68 Respiratory Rate 25 H 14 23 Blood Pressure 108/67 101/56 L Pulse Oximetry 96 98 100 05/14/18 07:00 05/14/18 08:00 05/14/18 08:01 Temperature 97.8 F Pulse Rate 75 87 105 H Respiratory Rate 19 28 H 26 H Blood Pressure 98/55 L 105/51 L Pulse Oximetry 98 90 L 96 05/14/18 09:00 05/14/18 10:00 05/14/18 11:00 Temperature Pulse Rate 74 82 68 Respiratory Rate 31 H Blood Pressure 106/58 L 111/55 L Pulse Oximetry 99 99 93 L 05/14/18 11:01 05/14/18 12:00 05/14/18 13:00 Temperature 98.0 F Pulse Rate 70 65 69 Respiratory Rate Blood Pressure 98/47 L 91/50 L 93/62 L Pulse Oximetry 100 95 97 Intake & Output 05/13/18 05/14/18 05/14/18 18:59 06:59 18:59 Intake Total 1999 1000 / 1000 1768 / 1768 Output Total 2292 / 2292 820 / 820 5540 / 5540 Balance -292 / -292 180 / 180 -3772 / -3772 Weight 47 kg Intake: IV 1000 / 1000 1000 / 1000 1368 / 1368 LR 1000 mL Inj 1,000 ML @ 100 1000 / 1000 1000 / 1000 1368 / 1368 mls/hr IV.CONT .Q10H [facility] Rx#: [id number] Oral 1000 / 1000 400 / 400 Output: Urine Amount (Catheter) 692 / 692 820 / 820 340 / 340 Indwelling Urethral Catheter 692 / 692 820 / 820 340 / 340 Stool Amount (Stoma) 1600 / 1600 5200 / 5200 Right Lower Abdomen 1600 / 1600 5200 / 5200 Other: Date of Last Bowel Movement 05/13/18 05/14/18 05/14/18 Narrative: GENERAL: Critically ill patient SKIN: Warm and dry. HEAD: Atraumatic. Normocephalic. EYES: Pupils equal and round. No scleral icterus. No injection or drainage. ENT: No nasal bleeding or discharge. Mucous membranes pink and moist. NECK: Trachea midline. No JVD. CARDIOVASCULAR: Regular rate and rhythm. RESPIRATORY: No accessory muscle use. Clear to auscultation. Breath sounds equal bilaterally. GASTROINTESTINAL: Abdomen soft, non-tender, nondistended. Hepatic and splenic margins not palpable. MUSCULOSKELETAL: Extremities without clubbing, cyanosis, or edema. No obvious deformities. NEUROLOGICAL: Awake and alert. No obvious cranial nerve deficits. Motor grossly within normal limits. Five out of 5 muscle strength in the arms and legs. Normal speech. PSYCHIATRIC: Appropriate mood and affect; insight and judgment normal. Results Procedures completed during hospitalization: None Labs on day of discharge: Labs from last 24 hours 05/14/18 05/14/18 05/14/18 11:39 05:42 05:42 WBC 9.1 RBC 3.63 L Hgb 10.7 L Hct 30.4 L MCV 83.9 MCH 29.4 MCHC 35.0 RDW 18.6 H Plt Count 297 MPV 6.1 L Neut % (Auto) 53.6 Lymph % (Auto) 34.0 [place] % (Auto) 11.2 H Eos % (Auto) 0.7 Baso % (Auto) 0.5 Neut # (Auto) 4.9 Lymph # (Auto) 3.1 [place] # (Auto) 1.0 H Eos # (Auto) 0.1 Baso # (Auto) 0.0 WBC Differential . Differential Comment Auto diff final Sodium 131 L Potassium 3.7 Chloride 91 L Carbon Dioxide 28.5 Anion Gap 12 BUN 86 H Creatinine 5.95 H Estimated GFR 7 L POC Glucose 140 H Random Glucose 101 Calcium 8.3 L Phosphorus 5.1 H D Magnesium 1.3 L Total Bilirubin 0.5 AST 20 ALT 34 Alkaline Phosphatase 187 H Total Protein 6.1 L Albumin 2.6 L 05/14/18 05/13/18 05/13/18 05:41 22:33 18:07 WBC RBC Hgb Hct MCV MCH MCHC RDW Plt Count MPV Neut % (Auto) Lymph % (Auto) [place] % (Auto) Eos % (Auto) Baso % (Auto) Neut # (Auto) Lymph # (Auto) [place] # (Auto) Eos # (Auto) Baso # (Auto) WBC Differential Differential Comment Sodium 130 L Potassium Chloride Carbon Dioxide Anion Gap BUN Creatinine Estimated GFR POC Glucose 102 93 Random Glucose Calcium Phosphorus Magnesium Total Bilirubin AST ALT Alkaline Phosphatase Total Protein Albumin 05/13/18 17:46 WBC RBC Hgb Hct MCV MCH MCHC RDW Plt Count MPV Neut % (Auto) Lymph % (Auto) [place] % (Auto) Eos % (Auto) Baso % (Auto) Neut # (Auto) Lymph # (Auto) [place] # (Auto) Eos # (Auto) Baso # (Auto) WBC Differential Differential Comment Sodium 128 L Potassium Chloride Carbon Dioxide Anion Gap BUN Creatinine Estimated GFR POC Glucose Random Glucose Calcium Phosphorus Magnesium Total Bilirubin AST ALT Alkaline Phosphatase Total Protein Albumin - Impressions ITS Impressions Abdomen/Pelvis CT 05/12/18 18:31 CONCLUSION: 1. 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 There is a potential contained rupture of the gallbladder with an apparent discontinuity seen inferiorly and laterally and with increased pericholecystic fluid. There is also marked wall thickening of the duodenum but a nonobstructive bowel gas pattern. No free air. 2. Difficult to separate from adjacent bowel loops but multiple metastatic masses are suspected in the pelvic cavity as described. Discharge Plan - Discharge Disposition Patient Disposition: 51 Hospice/Med Facility - Discharge Condition Condition: Critical - Discharge Order Discharge Orders: Discharge Order (Routine); Ordered 05/15/18 Ordered By: Brijesh Carpio - Physicians Team Attending Provider: Brijesh Carpio Other Providers: Suellen Gaines ; Asmita Celestin MD ; Yuki Mirza
[2018-05-15] MEDS: Insulin NovoLIN Regular Correctional Sugar Inj SQ SCH ×3 (00:12→12:22)
[2018-05-15 07:19] LABS: Baso # (Auto) 0.1 th/mm3 (0.0-0.2); Baso % (Auto) 0.7 % (0.0-2.0); Eos # (Auto) 0.1 th/mm3 (0.0-0.4); Hematocrit 28.9 % (35.0-46.0); Hemoglobin 10.1 gm/dL (11.6-15.3); Lymph # (Auto) 2.3 th/mm3 (1.0-4.8); Lymph % (Auto) 28.2 % (9.0-44.0); Mean Corpuscular Hemoglobin 29.2 pg (27.0-34.0); Mean Corpuscular Volume 83.6 fL (80.0-100.0); Mean Platelet Volume 6.2 fL (7.0-11.0); Mono # (Auto) 0.9 th/mm3 (0.0-0.9); Mono % (Auto) 10.6 % (0.0-8.0); Neut # (Auto) 4.8 th/mm3 (1.8-7.7); Neut % (Auto) 59.5 % (16.0-70.0); Platelet Count 275 th/mm3 (150-450); Red Blood Count 3.45 mil/mm3 (4.00-5.30); Red Cell Distribution Width 18.5 % (11.6-17.2); White Blood Count 8.1 th/mm3 (4.0-11.0)
[2018-05-15 07:43] LABS: Alanine Aminotransferase 27 U/L (10-53); Albumin 2.6 g/dL (3.4-5.0); Anion Gap 11 meq/L (5-15); Aspartate Aminotransferase 19 U/L (15-37); Blood Urea Nitrogen 58 mg/dL (7-18); Calcium 8.1 mg/dL (8.5-10.1); Carbon Dioxide 31.4 meq/L (21.0-32.0); Chloride 92 meq/L (98-107); Glomerular Filtration Rate 10 mL/min (>89); Glucose,Random 92 mg/dL (74-106); Magnesium 1.1 mg/dL (1.5-2.5); Phosphorus 4.2 mg/dL (2.5-4.9); Sodium 134 meq/L (136-145)
[2018-05-15 07:44] LABS: Alkaline Phosphatase 159 U/L (45-117); Total Protein 6.2 g/dL (6.4-8.2)
[2018-05-15] MEDS: Enoxaparin Inj 40 MG/0.4 ML Syringe SQ SCH (09:43)
--- NOTE | 2018-05-15 10:11 | P.PNIM ---
Subjective Interval history: Patient laying down in bed. She says she is looking forward to being discharged from the hospital. Physical Exam Vital signs: Vital Signs 05/14/18 10:00 05/14/18 11:00 05/14/18 11:01 Temperature Pulse Rate 82 68 70 Respiratory Rate Blood Pressure 111/55 L 98/47 L Pulse Oximetry 99 93 L 100 05/14/18 12:00 05/14/18 13:00 05/14/18 16:00 Temperature 98.0 F 97.8 F Pulse Rate 65 69 68 Respiratory Rate 17 Blood Pressure 91/50 L 93/62 L 92/50 L Pulse Oximetry 95 97 96 05/14/18 20:00 05/14/18 23:35 05/15/18 00:00 Temperature 97.6 F 97.7 F Pulse Rate 71 69 Respiratory Rate 18 18 18 Blood Pressure 118/59 L 125/56 L Pulse Oximetry 100 100 05/15/18 01:20 05/15/18 08:00 Temperature 97 F L Pulse Rate 76 Respiratory Rate 17 17 Blood Pressure 109/51 L Pulse Oximetry 97 Intake & Output 05/14/18 05/15/18 05/15/18 18:59 06:59 18:59 Intake Total 2400 / 2400 Output Total 5540 / 5540 Balance -3140 / -3140 Weight 48 kg Intake: IV 2000 / 2000 LR 1000 mL Inj 1,000 ML @ 100 2000 / 2000 mls/hr IV.CONT .Q10H [facility] Rx#: [id number] Oral 400 / 400 Output: Urine Amount (Catheter) 340 / 340 Indwelling Urethral Catheter 340 / 340 Stool Amount (Stoma) 5200 / 5200 Right Lower Abdomen 5200 / 5200 Other: Date of Last Bowel Movement 05/14/18 Narrative: General patient without any active pain at the moment. HEENT extraocular movements are intact, clear oropharyngeal mucosa, no JVD Cardiovascular S1-S2 audible, RRR, no murmurs rubs or gallops Respiratory clear to auscultation bilaterally Abdomen soft, nontender, ileostomy in place Extremities no edema 2+ distal pulses in bilateral upper and lower extremities Neuro cranial nerves II through XII intact - Urinary Catheter Management Indwelling Urethral Catheter Cath placed during this visit: yes Reason for continuing: Hourly intake/output Insertion date: 05/12/18 Insertion time: 22:08 Results - Labs CBC & Chem 7: 12/24/18 06:20 05/15/18 06:20 Laboratory Results - last 24 hr 05/14/18 05/14/18 05/15/18 11:39 16:20 00:07 WBC RBC Hgb Hct MCV MCH MCHC RDW Plt Count MPV Neut % (Auto) Lymph % (Auto) [place] % (Auto) Eos % (Auto) Baso % (Auto) Neut # (Auto) Lymph # (Auto) [place] # (Auto) Eos # (Auto) Baso # (Auto) WBC Differential Differential Comment Sodium 131 L Potassium Chloride Carbon Dioxide Anion Gap BUN Creatinine Estimated GFR POC Glucose 140 H 158 H Random Glucose Calcium Phosphorus Magnesium Total Bilirubin AST ALT Alkaline Phosphatase Total Protein Albumin 05/15/18 05/15/18 05/15/18 06:20 06:20 06:41 WBC 8.1 RBC 3.45 L Hgb 10.1 L Hct 28.9 L MCV 83.6 MCH 29.2 MCHC 35.0 RDW 18.5 H Plt Count 275 MPV 6.2 L Neut % (Auto) 59.5 Lymph % (Auto) 28.2 [place] % (Auto) 10.6 H Eos % (Auto) 1.0 Baso % (Auto) 0.7 Neut # (Auto) 4.8 Lymph # (Auto) 2.3 [place] # (Auto) 0.9 Eos # (Auto) 0.1 Baso # (Auto) 0.1 WBC Differential . Differential Comment Auto diff final Sodium 134 L Potassium 3.0 L Chloride 92 L Carbon Dioxide 31.4 Anion Gap 11 BUN 58 H Creatinine 4.31 H Estimated GFR 10 L POC Glucose 104 Random Glucose 92 Calcium 8.1 L Phosphorus 4.2 Magnesium 1.1 L Total Bilirubin 0.4 AST 19 ALT 27 Alkaline Phosphatase 159 H Total Protein 6.2 L Albumin 2.6 L Microbiology 05/12/18 21:56 Clean Catch Urine Urine Culture - Final No growth in 48 hours - Procedures None Assessment and Plan - Plan This patient is a 67-year-old female with a diagnosis of stage IV metastatic colon cancer who was admitted for severe dehydration and electrolyte imbalances as well as acute renal failure. 1. Stage IV colon adenocarcinoma with metastasis. 2. Severe dehydration 2/2 #1 3. Acute kidney injury on chronic kidney disease CT scan of the abdomen pelvis is showing hepatic mass with involvement of the gallbladder as well as a second and third portion of the duodenum. The head of the pancreas is also likely involved. Patient will be discharged home with hospice. Plan is for the patient to be discharged home today. Continue pain management. 4. Hypokalemia likely secondary to kidney injury. Patients cr is around 4. We will very careful giving KCL replacement given her Kidney function. Continue IV fluids. Patient will be discharged to hospice today. Lovenox for DVT prophylaxis.
[2018-05-15] MEDS: Chlorhexidine Gluconate 2% 1 Pack (2 Cloths) TOPICAL SCH (12:21)
== END 2018-05-15 16:18 | disposition hospice, inpatient (51) ==
LOC: NEPE 18:03 → NEDA 21:02 → HIMC 23:20 → N07 05-14 14:22
PROVIDERS: ADMIT Hospitalist; ATTEND Hospitalist